=== PATIENT | male | born 1945 | race Caucasian/White ===

== ENCOUNTER 2019-03-23 23:22 | Emergency (ER) | payer MEDICARE, OTHER, SELFPAY ==
--- NOTE | 2019-03-23 23:25 | ED_ITS ---
Entered by Debi Bennett, acting as scribe for Cally Estrada Nakul HPI - SOB/Dyspnea General: Chief Complaint: Shortness of Breath/Dyspnea Stated Complaint: RESPIRATORY/ CONFUSION Time Seen by Provider: 03/23/19 23:25 Source: EMS Mode of arrival: EMS Limitations: no limitations History of Present Illness: HPI Narrative: 73 yo m came into the er by [facility] ems for sob. Ems states that pt has a productive cough x3 days, o2 was in the 80's apon arrival and was a little altered. He denies any other complaints or concerns. He denies headache, chest pain, back pain, abdominal pain or extremity pain. MD elicited complaint: shortness of breath and cough Pertinent past history: diabetes (461) Timing: constant Relieving factors: oxygen and rest Associated symptoms: Deny abdominal pain, chest congestion, chest pain, diaphoresis, dizziness, extremity pain, fever(s), hemoptysis, nausea, orthopnea, palpitations, polydipsia, syncope or vomiting Treatment prior to arrival: oxygen Related Data: Home oxygen amount: none Review of Systems General: Reports: other (negative unless marked) Const: Denies: fever, chills, body aches, fatigue, malaise or diaphoresis Eyes: Denies: change in vision or blurry vision ENMT: Denies: throat pain, painful swallowing, hoarseness, ear pain, ear discharge, Change in hearing or nasal discharge Card: Reports: shortness of breath on exertion; Denies: chest pain, palpitations, irregular heart rhythm, syncope, pre-syncope or shortness of breath when lying down Resp: Reports: shortness of breath, productive cough and wheezing; Denies: non-productive cough, coughing up blood or chest congestion GI: Denies: abdominal pain, nausea, vomiting, vomiting blood, coffee grounds in vomit, diarrhea, constipation, cramping, blood in stool or black tarry stool : Denies: flank pain, difficulty urinating, painful urination, urinary frequency, urinary urgency, decreased urine ouput, urinary incontinence or blood in urine Musc: Denies: neck pain, back pain, extremity pain, extremity swelling, joint pain, joint swelling, joint warmth or joint stiffness Skin/Breast: Denies: rash, skin tenderness or yellow skin Neuro: Denies: headache, numbness in extremities, weakness in extremities, changes in sensation, lack of coordination, difficulty walking, dizziness, vertigo or confusion Endo: Denies: excessive thirst, tired all the time, cold intolerance, excessive sweating, flushing or hot flashes Robert/Lymph: Denies: easy bruising, easy bleeding, petechiae or enlarged lymph nodes All/Imm: Denies: hives, throat swelling, tongue swelling, facial swelling or acute wheezing PFSH ED PFSH: Statuses (acute, chronic, etc) shown below reflect problem list status as previously entered and may not be historically accurate Medical History Back pain with history of spinal surgery (Acute) Chronic back pain (Acute) Coronary artery disease involving coronary bypass graft of [place] heart (Acute) 2019 Diabetes (Acute) Former smoker (Acute) Hypertension (Acute) Sepsis (Acute) 2019 Urinary retention (Acute) Surgical History H/O angioplasty (Acute) 1992 H/O spinal fusion (Acute) 1999, 2012 History of prostate surgery (Acute) 2004 Hx of appendectomy (Acute) 1986 Knee joint replacement status (Acute) Bilateral Stented coronary artery (Acute) 1996 Family History Denies family history of CAD (coronary artery disease) Chronic kidney disease (CKD) Cancer Social History Smoking and tobacco status: former smoker Physical Exam Const: COMMON NORMALS: no apparent distress, oriented x3, no limitations, healthy appearing and well nourished EXAM LIMITATIONS: no altered mental status GENERAL APPEARANCE: cooperative, well kempt and well developed ORIENTATION/CONSCIOUSNESS: Yes awake HENMT: COMMON NORMALS: normocephalic, head/scalp atraumatic, hearing grossly normal bilaterally, external ears normal, EAC's normal, external nose normal and moist oral mucous membranes HEAD & SCALP: normal to inspection, normocephalic and atraumatic FACE & SINUS: normal facial exam and face symmetric NOSE: external nose normal and nares normal EXTERNAL EAR: Yes external ears normal EXTERNAL AUDITORY CANAL: EAC's normal MOUTH: oral and palatal mucosa normal and tongue normal Eye: COMMON NORMALS: PERRL, EOMs intact bilaterally, conjunctivae normal and no scleral icterus GENERAL EYE: normal appearance of both eyes and normal light reflex CONJUNCTIVA: Yes conjunctivae normal SCLERA: sclerae normal CORNEA: Yes corneas normal PUPIL: Yes PERRL DIRECT OPHTHALMOSCOPY: Yes normal light reflex Neck/C-Spine: COMMON NORMALS: full ROM, no lymphadenopathy, supple, no meningeal signs and no JVD GENERAL: Yes normal visual inspection and Yes trachea midline CERVICAL SPINE: Yes cervical ROM normal Chest: COMMONS NORMALS: inspection of chest normal and palpation of chest normal Resp: COMMON NORMALS: normal respiratory effort, no retractions, no use of accessory muscles and clear to auscultation bilaterally EFFORT & INSPECTION: Yes able to speak in complete sentences AUSCULTATION: clear to auscultation bilaterally Cardio: COMMON NORMALS: no JVD, regular rate, regular rhythm, S1 normal heart sound, S2 normal heart sound, no gallops, no clicks, no murmurs and no rub JUGULAR VENOUS DISTENTION: no JVD RATE: regular rate RHYTHM: regular rhythm HEART SOUNDS: S1 normal and S2 normal GI: COMMON NORMALS: soft to palpation, non-tender, no hepatosplenomegaly and no masses INSPECTION: Yes normal to inspection PALPATION: Yes soft and Yes no hepatosplenomegaly : COMMON NORMALS: Yes no CVA tenderness BLADDER/KIDNEY EXAM: Yes no CVA tenderness Back/Pelvis: COMMON NORMALS: no CVA tenderness, thoracic and lumbar spine normal to inspection, no thoracic nor lumbar tenderness and thoraco-lumbar ROM normal Extremity: COMMON NORMALS: normal to inspection, full ROM, normal capillary refill, no joint enlargement, no clubbing, cyanosis or edema and no calf tenderness Neuro: COMMON NORMALS: oriented x3, CN's II-XII intact bilaterally, moves all extremities, no focal motor deficits and no sensory deficits noted MENINGEAL SIGNS: Yes no meningeal signs Psych: COMMON NORMALS: mental status grossly normal, thought process normal, cooperative, affect normal, speech normal and activity/motor behavior normal APPEARANCE: Yes well kempt SPEECH: Yes normal speech THOUGHT PROCESS: normal thought process Skin: COMMON NORMALS: no rashes or lesions noted, skin turgor normal, no jaundice, no petechiae and no mottling GENERAL SKIN EXAM: no rashes or lesions noted and turgor normal Course ED course: 354 local air ambulance services with varying capabilities of flight in bad weather have been called and all of turned us down. [facility] has been made aware that as soon as the patient's index is available they will be transferring the patient is a life threat transfer to [facility]. Vital Signs: Vital signs: Vital Signs Temperature 99.2 F 03/23/19 23:30 Pulse Rate 59 L 03/24/19 02:35 Respiratory Rate 18 03/24/19 02:35 Blood Pressure 93/55 03/24/19 02:35 Pulse Oximetry 95 03/24/19 02:35 MDM - SOB/Dyspnea MDM Narrative: Medical decision making narrative: Patient CT scan and history was shared with Dr. Mena and Dr. Patrick. They both feel the patient should be transferred secondary to the inability to do a nephrectomy. The case reviewed with Dr. Dillon at [facility] in [place] and he will accept the patient to their ICU. He recommends giving Andexxa for the as the patient is on Eliquis and having a hematoma with mass-effect.. He does not think the patient needs transfusion at this time. Patient is currently stable and feeling better. He is on Levophed at 2 mics/min but only run slightly below a map of 65 without this. The patient does have pneumonia which could be contributing to his shortness of breath but overall he appears greatly improved. At this time his vital signs are stable and normal. Further care will be dictated at [facility] upon his arrival. Lab Data: Attestation: I reviewed the patient's lab results. Labs: Lab Results 03/23/19 03/23/19 03/23/19 Range/Units 23:35 23:42 23:42 WBC 13.2 H (4.0-10.0) 10^3/ uL RBC 3.58 L (4.1-5.3) 10^6/u L Hgb 10.2 L (11.7-16.6) g/dL Hct 30.8 L (42.0-52.0) % MCV 86.0 (80-94) fL MCH 28.5 (28.0-34.0) pg MCHC 33.1 (30.0-36.0) g/dL RDW 12.6 (12.1-15.1) % Plt Count 169 (130-400) 10^3/c mm MPV 12.4 H (7.4-10.4) fL Neut % (Auto) 79.5 % Lymph % (Auto) 9.0 % [place] % (Auto) 10.8 % Eos % (Auto) 0.1 % Baso % (Auto) 0.1 % Neut # (Auto) 10.5 H (1.8-7.7) 10^3/u L Lymph # (Auto) 1.2 (0.8-4.8) 10^3/u L [place] # (Auto) 1.4 H (0.2-0.9) 10^3/u L Eos # (Auto) 0.0 (0.0-0.8) 10^3/u L Baso # (Auto) 0.0 (0.0-0.1) 10^3/u L Nucleated RBC % (a uto) 0 % Nucleated RBCs # 0.0 /100WBC PT (10.5-13.3) SECO NDS INR (0.8-1.2) Specimen Type Arterial Sample Site Radial, left ABG pH 7.37 (7.35-7.45) ABG pCO2 38.6 (35-45) mmHg ABG pO2 123.0 H (80.0-100.0) mmH g ABG HCO3 22.3 (22-26) mmol/L ABG Base Excess -2.7 L (-2.0-2.0) mmol/ L Shyam Test Pos Hematocrit 32.4 L (42-52) % O2 Delivery Device Nrb O2 Liters/Min 15.0 % Body Work Auto Trimmer ID [email or web address] Sodium 128 L (136-145) mmol/L Potassium 4.3 (3.5-5.1) mmol/L Chloride 93 L (98-107) mmol/L Carbon Dioxide 21 L (22-29) mmol/L Anion Gap 18.3 (5-19) BUN 81 H (8-23) mg/dL Creatinine 3.4 H (0.7-1.2) mg/dL Glucose 468 H (74-106) mg/dL Lactic Acid (0.5-2.2) mmol/L Calcium 9.3 (8.5-10.5) mg/dL Magnesium 2.5 H (1.7-2.3) mg/dL Total Bilirubin 0.5 (0.15-1.2) mg/dL AST 13 (0-40) U/L ALT 15 (0-41) U/L Alkaline Phosphata se 55 (40-130) IU/L Troponin T Baselin e (0-15) ng/mL Troponin T 120 Min [place] (0-15) ng/mL Delta Troponin T (0-10) ABS# NT-Pro-B Natriuret Pep 1789 H (0-125) pg/mL Total Protein 6.4 L (6.6-8.7) g/dL Albumin 3.2 L (3.5-5.2) g/dL Globulin 3.2 (1.3-4.6) g/dL Urine Color (Yellow) Urine Appearance (CLEAR) Urine pH (5-7) Ur Specific Gravit y (1.005-1.030) Urine Protein (Negative) Urine Glucose (UA) (Normal) Urine Ketones (Negative) Urine Occult Blood (Negative) Urine Nitrate (Negative) Urine Bilirubin (NEGATIVE) Urine Urobilinogen (Negative) mg/dL Ur Leukocyte Lucero ase (Negative) Urine RBC (0-2) /hpf Urine WBC (0-5) /hpf Ur Squamous Epith Cells (0-5) Ur Transition Epit h Cell /hpf Urine Bacteria (NONE) Influenza Type A A g (Negative) POC Influenza B Ag (Negative) 03/23/19 03/23/19 03/23/19 Range/Units 23:42 23:42 23:42 WBC (4.0-10.0) 10^3/ uL RBC (4.1-5.3) 10^6/u L Hgb (11.7-16.6) g/dL Hct (42.0-52.0) % MCV (80-94) fL MCH (28.0-34.0) pg MCHC (30.0-36.0) g/dL RDW (12.1-15.1) % Plt Count (130-400) 10^3/c mm MPV (7.4-10.4) fL Neut % (Auto) % Lymph % (Auto) % [place] % (Auto) % Eos % (Auto) % Baso % (Auto) % Neut # (Auto) (1.8-7.7) 10^3/u L Lymph # (Auto) (0.8-4.8) 10^3/u L [place] # (Auto) (0.2-0.9) 10^3/u L Eos # (Auto) (0.0-0.8) 10^3/u L Baso # (Auto) (0.0-0.1) 10^3/u L Nucleated RBC % (a uto) % Nucleated RBCs # /100WBC PT 22.50 H (10.5-13.3) SECO NDS INR 1.90 H (0.8-1.2) Specimen Type Sample Site ABG pH (7.35-7.45) ABG pCO2 (35-45) mmHg ABG pO2 (80.0-100.0) mmH g ABG HCO3 (22-26) mmol/L ABG Base Excess (-2.0-2.0) mmol/ L Shyam Test Hematocrit (42-52) % O2 Delivery Device O2 Liters/Min % Body Work Auto Trimmer ID Sodium (136-145) mmol/L Potassium (3.5-5.1) mmol/L Chloride (98-107) mmol/L Carbon Dioxide (22-29) mmol/L Anion Gap (5-19) BUN (8-23) mg/dL Creatinine (0.7-1.2) mg/dL Glucose (74-106) mg/dL Lactic Acid 1.2 (0.5-2.2) mmol/L Calcium (8.5-10.5) mg/dL Magnesium (1.7-2.3) mg/dL Total Bilirubin (0.15-1.2) mg/dL AST (0-40) U/L ALT (0-41) U/L Alkaline Phosphata se (40-130) IU/L Troponin T Baselin e 28 H (0-15) ng/mL Troponin T 120 Min [place] (0-15) ng/mL Delta Troponin T (0-10) ABS# NT-Pro-B Natriuret Pep (0-125) pg/mL Total Protein (6.6-8.7) g/dL Albumin (3.5-5.2) g/dL Globulin (1.3-4.6) g/dL Urine Color (Yellow) Urine Appearance (CLEAR) Urine pH (5-7) Ur Specific Gravit y (1.005-1.030) Urine Protein (Negative) Urine Glucose (UA) (Normal) Urine Ketones (Negative) Urine Occult Blood (Negative) Urine Nitrate (Negative) Urine Bilirubin (NEGATIVE) Urine Urobilinogen (Negative) mg/dL Ur Leukocyte Lucero ase (Negative) Urine RBC (0-2) /hpf Urine WBC (0-5) /hpf Ur Squamous Epith Cells (0-5) Ur Transition Epit h Cell /hpf Urine Bacteria (NONE) Influenza Type A A g (Negative) POC Influenza B Ag (Negative) 03/24/19 03/24/19 03/24/19 Range/Units 00:01 00:39 01:22 WBC (4.0-10.0) 10^3/ uL RBC (4.1-5.3) 10^6/u L Hgb (11.7-16.6) g/dL Hct (42.0-52.0) % MCV (80-94) fL MCH (28.0-34.0) pg MCHC (30.0-36.0) g/dL RDW (12.1-15.1) % Plt Count (130-400) 10^3/c mm MPV (7.4-10.4) fL Neut % (Auto) % Lymph % (Auto) % [place] % (Auto) % Eos % (Auto) % Baso % (Auto) % Neut # (Auto) (1.8-7.7) 10^3/u L Lymph # (Auto) (0.8-4.8) 10^3/u L [place] # (Auto) (0.2-0.9) 10^3/u L Eos # (Auto) (0.0-0.8) 10^3/u L Baso # (Auto) (0.0-0.1) 10^3/u L Nucleated RBC % (a uto) % Nucleated RBCs # /100WBC PT (10.5-13.3) SECO NDS INR (0.8-1.2) Specimen Type Sample Site ABG pH (7.35-7.45) ABG pCO2 (35-45) mmHg ABG pO2 (80.0-100.0) mmH g ABG HCO3 (22-26) mmol/L ABG Base Excess (-2.0-2.0) mmol/ L Shyam Test Hematocrit (42-52) % O2 Delivery Device O2 Liters/Min % Body Work Auto Trimmer ID Sodium (136-145) mmol/L Potassium (3.5-5.1) mmol/L Chloride (98-107) mmol/L Carbon Dioxide (22-29) mmol/L Anion Gap (5-19) BUN (8-23) mg/dL Creatinine (0.7-1.2) mg/dL Glucose (74-106) mg/dL Lactic Acid (0.5-2.2) mmol/L Calcium (8.5-10.5) mg/dL Magnesium (1.7-2.3) mg/dL Total Bilirubin (0.15-1.2) mg/dL AST (0-40) U/L ALT (0-41) U/L Alkaline Phosphata se (40-130) IU/L Troponin T Baselin e (0-15) ng/mL Troponin T 120 Min [place] 26.59 H (0-15) ng/mL Delta Troponin T -1.41 L (0-10) ABS# NT-Pro-B Natriuret Pep (0-125) pg/mL Total Protein (6.6-8.7) g/dL Albumin (3.5-5.2) g/dL Globulin (1.3-4.6) g/dL Urine Color Yellow (Yellow) Urine Appearance Cloudy (CLEAR) Urine pH 5 (5-7) Ur Specific Gravit y 1.020 (1.005-1.030) Urine Protein Neg (Negative) Urine Glucose (UA) 4+ H (Normal) Urine Ketones Negative (Negative) Urine Occult Blood 2+ H (Negative) Urine Nitrate Negative (Negative) Urine Bilirubin Neg (NEGATIVE) Urine Urobilinogen Norm (Negative) mg/dL Ur Leukocyte Lucero ase 2+ H (Negative) Urine RBC 10-15 H (0-2) /hpf Urine WBC Too numerous to c nt H (0-5) /hpf Ur Squamous Epith Cells 5-10 H (0-5) Ur Transition Epit h Cell 0-4 /hpf Urine Bacteria 4+ H (NONE) Influenza Type A A g Negative (Negative) POC Influenza B Ag Negative (Negative) Imaging Data^: CT Abd/Pel: Attestation: I personally reviewed and interpreted this imaging study as follows: Radiologist's impression: [address] [address] [address] Scan Report Signed with Kirstie Patient: Dominick Cifuentes Unit #: [id number] : 1945 Age/Sex: 73 / M ADM Date: 03/23/19 Loc: ER Room/Bed: Attending Dr: Ordering Provider/Ordering MD: Cally Estrada DO Date of Service: 03/24/19 Procedure(s): CT kidney stone 17222 Accession Number(s): [id number] Report Number: [id number]/CT kidney stone [address] Consider renal mass protocol CT in the future to evaluate for the possibility of underlying mass. The findings were discussed with Dr. Estrada on 03/24/2019 2:18 AM PHARMACY MANAGER. Radiation Dose CTDIVOL = (mGy): DLP = 1816.75 (mGy-cm) Addendum Dictated By: Ramy Guillen MD Addendum Signed By: Ramy Guillen MD Signed Date/Time: 03/24/1904 17 Addendum Cosigned By: PROCEDURE INFORMATION: Exam: CT Abdomen And Pelvis Without Contrast Exam date and time: 03/24/2019 1:11 AM Age: 73 years old Clinical indication: Pain; Other: Back; Additional info: Flank/abdominal pain TECHNIQUE: Imaging protocol: Computed tomography of the abdomen and pelvis without contrast. Total DLP: 1816.75 mGy-cm Radiation optimization: All CT scans at this facility use at least one of these dose optimization techniques: automated exposure control; mA and/or kV adjustment per patient size (includes targeted exams where dose is matched to clinical indication); or iterative reconstruction. COMPARISON: CT Chest/Abdomen/Pelvis wo IV 01/07/2013 8:41 AM FINDINGS: Mild atelectasis at the right lung base. Moderate patchy atelectasis and/or pneumonia in the left lower lobe at the lung base, new. The liver, gallbladder, pancreas, and adrenal glands are unremarkable within the limits of a noncontrast study. Several small calcified granulomata in the spleen. There are a few cysts in the right kidney, largest 3.1 cm in the mid kidney. There are a few stones in the right kidney, largest 0.5 cm in the mid kidney. There are a few simple cysts in the right kidney, largest 6.5 cm in the lower pole. There is a 1.1 cm probable hyperdense cyst in the left kidney lower pole on series 2, image 24. Large subcapsular left renal hematoma measuring 9.8 cm x 6.2 cm on series 2, image 91. This is demonstrating marked mass effect on the left kidney. Large amount of infiltrative hemorrhage in the left perinephric space and the left side of the retroperitoneum inferior to the left kidney. No obstructing renal stones identified. No hydronephrosis identified. The appendix is not identified as a separate structure. No evidence of bowel obstruction. No evidence of diverticulitis. No free intraperitoneal air identified. Payne catheter is noted in the bladder. The bladder is collapsed and is not well evaluated on this study. Extensive atherosclerotic aortoiliac calcification. No abdominal aortic aneurysm. Degenerative changes throughout the visualized lower thoracic spine and the lumbar spine. Status post posterior surgical fusion of T9 through L3. CT/CT kidney stone 77122 IMPRESSION: 1. Moderate patchy atelectasis and/or pneumonia in the left lower lobe at the lung base, new. 2. Large subcapsular left renal hematoma. This is demonstrating marked mass effect on the left kidney. Large amount of infiltrative hemorrhage in the left perinephric space and the left side of the retroperitoneum inferior to the left kidney. These findings are new. Radiation Dose CTDIVOL = (mGy): DLP = 1816.75 (mGy-cm) Dictated By: Ramy Guillen MD Signed By: Ramy Guillen MD Signed Date/Time: 03/24/19215 DD/ 3 EKG Data^: EKG 1: Attestation: I personally reviewed and interpreted this EKG as follows: EKG Interpretation Date: 03/23/19 EKG interpretation time: 23:52 Interpretation: Normal sinus rhythm at 58 beats a minute, first-degree AV block, normal QRS duration, normal QTC. Nonspecific ST and T wave changes. Unchanged from previous. EKG 2: EKG Interpretation Date: 03/24/19 EKG interpretation time: 01:18 Interpretation: Normal sinus rhythm at 55 beats a minute, first-degree AV block, normal QRS, normal QTC. Nonspecific ST-T wave changes, otherwise unremarkable. Discharge Plan Discharge Patient Disposition: Xfer Short-Term Hosp Clinical Impression: UTI (urinary tract infection), Septic shock, Closed hematoma of right kidney, Pneumonia, Chronic anticoagulation Condition: Stable Referrals: Branden Moody [Primary Care Provider] - Coding Level of Care Code ED Pickle Water Pump Operator for Chg Fwd The documentation recorded by the Donald duenas Stephanie Lyn, accurately reflects the service I personally performed and the decisions made by Sean dent Eli N Mar 23, 2019 23:22
--- NOTE | 2019-03-23 23:28 | XR_ITS ---
WS: [id number] PORTABLE CHEST HISTORY: cough COMPARISON: 07/18/2015 Prior CABG. Vertical fusion rods are noted and there is a fracture in the LEFT vertical dipika. This fra cture is probably between T12 and L1. Mild dependent changes at the lung bases bilaterally. More focal consolidation at the LEFT lung base consistent with pneumonia. Small LEFT pleural effusion. Cardiac size: Moderately enlarged cardiac silhouette. Mediastinum/Aorta: Mild atherosclerosis aorta. Prior fusion thoracolumbar region. XR/XR chest 1V portable [id number] IMPRESSION: 1. LEFT lower lobe pneumonia with small adjacent pleural effusion. 2. Prior CABG. 3. Vertical LEFT thoracolumbar fusion dipika is fractured.
[2019-03-23 23:30] VITALS: BP 87/53; PULSE 60; RESP 24; TEMP 37.3; O2SAT 96; BMI 31.0
--- NOTE | 2019-03-23 23:31 | ECG_ITS ---
Measurements Intervals [place] Rate: 58 P: 18 CT: 251 QRS: -8 QRSD: 93 T: 8 QT: 430 QTc: 424 SINUS BRADYCARDIA WITH FIRST DEGREE AV BLOCK MODERATE VOLTAGE CRITERIA FOR LVH, CONSIDER NORMAL VARIANT [MEETS CRITERIA IN ON ONE OF: R(aVL), S(V1), R(V5), R(V5/V6)+S(V1)] Compared to ECG 07/18/2015 23:29:40 No significant changes Electronically Signed On 03-24-2019 16:17:59 CURATOR OF COLLECTIONS by Ted Blood M.D. [id number]
[2019-03-23] MEDS: ipratropium-albuterol 3 mL Neb 9 ML INHALATION (23:35)
[2019-03-23 23:36] VITALS: PULSE 58; RESP 16; O2SAT 98
[2019-03-23 23:41] VITALS: PULSE 58; RESP 18; O2SAT 96
[2019-03-23 23:44] LABS: ABG PCO2 38.6 mmHg (35-45); ABG PH Result 7.37 (7.35-7.45); Arterial Blood Gas Hematocrit 32.4 % (42-52); Base Excess ABG -2.7 mmol/L (-2.0-2.0); Blood Gas Allen Test Pos; Blood Gas Sample Site Radial, left; Blood Gas Sample Type Arterial; HCO3 ABG 22.3 mmol/L (22-26); Oxygen Device NRB
[2019-03-23 23:53] LABS: Basophils % 0.1 %; Eosinophils % 0.1 %; Hematocrit 30.8 % (42.0-52.0); Hemoglobin 10.2 g/dL (11.7-16.6); Lymphocytes # 1.2 10^3/uL (0.8-4.8); Mean Corpuscular HGB Conc 33.1 g/dL (30.0-36.0); Mean Corpuscular Hemoglobin 28.5 pg (28.0-34.0); Mean Platelet Volume 12.4 fL (7.4-10.4); Monocytes # 1.4 10^3/uL (0.2-0.9); Monocytes % 10.8 %; Neutrophils # 10.5 10^3/uL (1.8-7.7); Neutrophils % 79.5 %; Nucleated Red Blood Cells % 0 %; Platelet Count 169 10^3/cmm (130-400); Red Blood Count 3.58 10^6/uL (4.1-5.3); Red Cell Distribution Width 12.6 % (12.1-15.1); White Blood Count 13.2 10^3/uL (4.0-10.0)
[2019-03-24] MEDS: levofloxacin-dextrose 5 % 750 MG/150 ML PREMIX 150 MG IV (00:08)
[2019-03-24 00:14] LABS: Lactic Sepsis W/Reflex 1.2 mmol/L (0.5-2.2)
[2019-03-24 00:17] LABS: Troponin(5th) Baseline 28 ng/mL (0-15)
[2019-03-24 00:26] VITALS: BP 107/59; PULSE 60; RESP 20; O2SAT 91
[2019-03-24 00:26] LABS: Bilirubin Urine Neg (NEGATIVE); Blood Urine 2+ (Negative); Glucose Urine UA 4+ (Normal); Ketones Urine Negative (Negative); Leukocyte Esterase Urine 2+ (Negative); Nitrate Urine Negative (Negative); Protein Urine Neg (Negative); Urine Appearance Cloudy (CLEAR); Urine Color Yellow (Yellow); Urobilinogen Urine Norm (Negative); pH Urine 5 (5-7)
[2019-03-24 00:26] LABS: Alanine Aminotransferase 15 U/L (0-41); Albumin Level 3.2 g/dL (3.5-5.2); Alkaline Phosphatase 55 IU/L (40-130); Anion Gap 18.3 (5-19); Aspartate Amino Transferase 13 U/L (0-40); Blood Urea Nitrogen 81 mg/dL (8-23); Calcium 9.3 mg/dL (8.5-10.5); Carbon Dioxide 21 mmol/L (22-29); Chloride 93 mmol/L (98-107); Globulin 3.2 g/dL (1.3-4.6); Glucose 468 mg/dL (74-106); Magnesium 2.5 mg/dL (1.7-2.3); NT Pro B Type Natriuretic Pept 1789 pg/mL (0-125); Potassium 4.3 mmol/L (3.5-5.1); Sodium 128 mmol/L (136-145); Total Bilirubin 0.5 mg/dL (0.15-1.2); Total Protein 6.4 g/dL (6.6-8.7)
[2019-03-24 00:39] LABS: Add Urine Culture? Yes; Bacteria Urine 4+; Transitional Epi Cells Urine 0-4 /hpf; WBC Urine TOO NUMEROUS TO CNT /hpf (0-5)
--- NOTE | 2019-03-24 01:11 | CTR_ITS ---
PROCEDURE INFORMATION: Exam: CT Abdomen And Pelvis Without Contrast Exam date and time: 03/24/2019 1:11 AM Age: 73 years old Clinical indication: Pain; Other: Back; Additional info: Flank/abdominal pain TECHNIQUE: Imaging protocol: Computed tomography of the abdomen and pelvis without contrast. Total DLP: 1816.75 mGy-cm Radiation optimization: All CT scans at this facility use at least one of these dose optimization techniques: automated exposure control; mA and/or kV adjustment per patient size (includes targeted exams where dose is matched to clinical indication); or iterative reconstruction. COMPARISON: CT Chest/Abdomen/Pelvis wo IV 01/07/2013 8:41 AM FINDINGS: Mild atelectasis at the right lung base. Moderate patchy atelectasis and/or pneumonia in the left lower lobe at the lung base, new. The liver, gallbladder, pancreas, and adrenal glands are unremarkable within the limits of a noncontrast study. Several small calcified granulomata in the spleen. There are a few cysts in the right kidney, largest 3.1 cm in the mid kidney. There are a few stones in the right kidney, largest 0.5 cm in the mid kidney. There are a few simple cysts in the right kidney, largest 6.5 cm in the lower pole. There is a 1.1 cm probable hyperdense cyst in the left kidney lower pole on series 2, image 24. Large subcapsular left renal hematoma measuring 9.8 cm x 6.2 cm on series 2, image 91. This is demonstrating marked mass effect on the left kidney. Large amount of infiltrative hemorrhage in the left perinephric space and the left side of the retroperitoneum inferior to the left kidney. No obstructing renal stones identified. No hydronephrosis identified. The appendix is not identified as a separate structure. No evidence of bowel obstruction. No evidence of diverticulitis. No free intraperitoneal air identified. Payne catheter is noted in the bladder. The bladder is collapsed and is not well evaluated on this study. Extensive atherosclerotic aortoiliac calcification. No abdominal aortic aneurysm. Degenerative changes throughout the visualized lower thoracic spine and the lumbar spine. Status post posterior surgical fusion of T9 through L3. CT/CT kidney stone [id number] IMPRESSION: 1. Moderate patchy atelectasis and/or pneumonia in the left lower lobe at the lung base, new. 2. Large subcapsular left renal hematoma. This is demonstrating marked mass effect on the left kidney. Large amount of infiltrative hemorrhage in the left perinephric space and the left side of the retroperitoneum inferior to the left kidney. These findings are new. Radiation Dose CTDIVOL = (mGy): DLP = 1816.75 (mGy-cm)
[2019-03-24 01:15] LABS: Influenza A by IFA Negative (Negative); Influenza B by IFA Negative (Negative)
--- NOTE | 2019-03-24 01:31 | ECG_ITS ---
Measurements Intervals [place] Rate: 57 P: 6 MA: 248 QRS: -3 QRSD: 96 T: 8 QT: 434 QTc: 423 SINUS BRADYCARDIA WITH FIRST DEGREE AV BLOCK MINIMAL VOLTAGE CRITERIA FOR LVH, CONSIDER NORMAL VARIANT [MEETS CRITERIA IN ONE OF: R(aVL), S(V1), R(V5), R(V5/V6)+S(V1)] INFERIOR MYOCARDIAL INFARCTION , PROBABLY OLD [40+ ms Q WAVE AND/OR ST/T AB ABNORMALITY IN II/aVF] Compared to ECG 07/18/2015 23:29:40 Myocardial infarct finding now present Electronically Signed On 03-24-2019 16:21:09 PRECAST MOLDER by Ted Blood M.D. [id number]
[2019-03-24 02:01] VITALS: BP 87/47; PULSE 57; O2SAT 91
[2019-03-24 02:04] LABS: Troponin 5 2HR 26.59 ng/mL (0-15)
--- NOTE | 2019-03-24 02:11 | PM.HP ---
Providers/Chief Complaint Primary Care Provider: Branden Moody Chief Complaint: RESPIRATORY/ CONFUSION History of Present Illness Dominick Cifuentes is a 73 year old male Medications/Allergies Home Medications Medication Instructions Recorded Confirmed Last Taken Type alprazolam 0.5 mg PO BID 03/23/19 03/23/19 03/23/19 History apixaban [Eliquis] 5 mg PO BID 03/23/19 03/23/19 03/23/19 History atenolol 100 mg PO DAILY 03/23/19 03/23/19 03/23/19 History carisoprodol [Soma] 350 mg PO TID 03/23/19 03/23/19 03/23/19 History diltiazem HCl 240 mg PO DAILY 03/23/19 03/23/19 03/23/19 History fenofibrate nanocrystallized 145 mg PO DAILY 03/23/19 03/23/19 03/23/19 History [Tricor] insulin glargine [Lantus Solostar 60 unit SUBCUT QPM 03/23/19 03/23/19 03/23/19 History U-100 Insulin] insulin regular human [Novolin R 1 unit SUBCUT DIRECTED 03/23/19 03/23/19 03/23/19 History Regular U-100 Insuln] lisinopril-hydrochlorothiazide 1 tab PO DAILY 03/23/19 03/23/19 03/23/19 History nitroglycerin 0.4 mg SUBLINGUAL Q5M PRN 03/23/19 03/23/19 Unknown History nitroglycerin 6.5 mg PO BID 03/23/19 03/23/19 03/23/19 History oxybutynin chloride 10 mg PO DAILY 03/23/19 03/23/19 03/23/19 History pregabalin [Lyrica] 100 mg PO BID 03/23/19 03/23/19 03/23/19 History sertraline 100 mg PO DAILY 03/23/19 03/23/19 03/23/19 History Allergies Allergy/AdvReac Type Severity Reaction Status Date / Time amitriptyline Allergy ALGY-Hives Verified 03/23/19 23:38 cefaclor [From Ceclor] Allergy ALGY-Hives Verified 03/23/19 23:38 PFSH Acute PFSH: Statuses (acute, chronic, etc) shown below reflect problem list status as previously entered and may not be historically accurate Medical History (Updated 03/24/19 @ 02:14 by Jeimy Mena MD) Back pain with history of spinal surgery (Acute) Chronic back pain (Acute) Coronary artery disease involving coronary bypass graft of [place] heart (Acute) 2019 Diabetes (Acute) Former smoker (Acute) Hypertension (Acute) Sepsis (Acute) 2019 Urinary retention (Acute) Surgical History (Updated 03/24/19 @ 02:14 by Jeimy Mena MD) H/O angioplasty (Acute) 1992 H/O spinal fusion (Acute) 1999, 2012 History of prostate surgery (Acute) 2004 Hx of appendectomy (Acute) 1986 Knee joint replacement status (Acute) Bilateral Stented coronary artery (Acute) 1996 Family History (Updated 03/24/19 @ 02:14 by Jeimy Mena MD) Denies family history of CAD (coronary artery disease) Chronic kidney disease (CKD) Cancer Social History Smoking and tobacco status: former smoker Vitals/I&O/Wt Last Vital Signs Temp 99.2 F 03/23/19 23:30 Pulse 57 L 03/24/19 02:01 Resp 20 H 03/24/19 00:26 BP 87/47 03/24/19 02:01 Pulse Ox 91 03/24/19 02:01 03/23/19 03/23/19 03/24/19 14:59 22:59 06:59 Intake Total 3150 / 3150 Balance 3150 / 3150 Weight last 48 hrs Weight 95.254 kg Physical Exam Urinary Catheter Management^: Payne: Cath Placed During This Visit: no Data : 03/23/19 23:42 03/23/19 23:42 Micro: Microbiology 03/23/19 23:42 Blood Culture - Preliminary Blood SPECIMEN COLLECTED 03/23/19 23:46 Blood Culture - Preliminary Blood SPECIMEN COLLECTED Coding Level of Care Code Acute Manager Managed [employer]up Services for Karli Small
[2019-03-24 02:22] LABS: Troponin 5 2HR Delta -1.41 ABS# (0-10)
[2019-03-24 02:35] VITALS: BP 93/55; PULSE 59; RESP 18; O2SAT 95
[2019-03-24] MEDS: sodium chloride 0.9% 1,000 ML 150 ML IV (02:40)
--- NOTE | 2019-03-24 04:06 | PC.NURSE ---
Called report to Chel Piedra RN at [facility]
[2019-03-24 04:07] VITALS: BP 109/60; PULSE 59; RESP 18; O2SAT 92
[2019-03-24 05:03] VITALS: BP 114/65; PULSE 56; RESP 20; O2SAT 92
--- NOTE | 2019-03-24 05:04 | PC.NURSE ---
Report given To Eh Psychology Department Chair
== END 2019-03-24 05:20 | disposition short-term general hospital (02) ==
PROVIDERS: Emergency Provider Emergency Medicine; Family Provider Family Medicine; PCP Family Medicine
DX: A41.9 Sepsis, unspecified organism (principal); N39.0 Urinary tract infection, site not specified; R65.21 Severe sepsis with septic shock; S37.011A Minor contusion of right kidney, initial encounter; J18.9 Pneumonia, unspecified organism; Z79.01 Long term (current) use of anticoagulants; I25.10 Atherosclerotic heart disease of native coronary artery without angina pectoris; Z95.1 Presence of aortocoronary bypass graft; E11.9 Type 2 diabetes mellitus without complications; I10 Essential (primary) hypertension; Z87.891 Personal history of nicotine dependence; X58.XXXA Exposure to other specified factors, initial encounter
CPT/HCPCS: 36415; 36600; 51702; 71045; 74176; 80053; 81001; 82803; 83605; 83735; 83880; 84484; 85025; 85610; 87040; 87077; 87086; 87186; 87804; 93005; 94640; 96365; 96366; 96372; 96374; 99283; 99285; C9041; J1815; J1956; J2930; J7030

== ENCOUNTER → 2019-08-05 09:30 | Outpatient (BNVA) | payer MEDICARE, OTHER, SELFPAY | PROVIDERS: Family Provider Family Medicine; PCP Nurse Practitioner Family; Visit Provider Family Medicine | DX: E11.9 Type 2 diabetes mellitus without complications (principal); F41.9 Anxiety disorder, unspecified; F32.9 Major depressive disorder, single episode, unspecified; I25.810 Atherosclerosis of coronary artery bypass graft(s) without angina pectoris; E78.5 Hyperlipidemia, unspecified; M54.9 Dorsalgia, unspecified; I10 Essential (primary) hypertension; K21.9 Gastro-esophageal reflux disease without esophagitis | CPT/HCPCS: 80053; 80061; 83036; 85025 ==

== ENCOUNTER → 2019-09-25 12:36 | Outpatient (BNVA) | payer MEDICARE, OTHER, SELFPAY | PROVIDERS: Family Provider Family Medicine; PCP Nurse Practitioner Family; Visit Provider Family Medicine | DX: R07.89 Other chest pain (principal); M54.9 Dorsalgia, unspecified; G89.29 Other chronic pain | CPT/HCPCS: 71046 ==

== ENCOUNTER 2019-11-09 06:00 | Outpatient (RCR) | payer MEDICARE, OTHER, SELFPAY | END 2019-11-25 23:59 | disposition home or self-care (01) | LOC: AOT 06:00 | PROVIDERS: PCP Nurse Practitioner Family; Referring Provider Family Medicine; Visit Provider Family Medicine | DX: G89.29 Other chronic pain (principal); M54.9 Dorsalgia, unspecified | CPT/HCPCS: 97166; 97530 ==

== ENCOUNTER → 2019-11-18 16:34 | Outpatient (BNVA) | payer MEDICARE, OTHER, SELFPAY | PROVIDERS: PCP Nurse Practitioner Family; Visit Provider Nurse Practitioner Family | DX: Z11.59 Encounter for screening for other viral diseases (principal) | CPT/HCPCS: 87635 ==

== ENCOUNTER → 2020-01-18 11:01 | Outpatient (BNVA) | payer MEDICARE, OTHER, SELFPAY | PROVIDERS: PCP Nurse Practitioner Family; Visit Provider Family Medicine | DX: E11.9 Type 2 diabetes mellitus without complications (principal); I10 Essential (primary) hypertension; F41.9 Anxiety disorder, unspecified; Z79.4 Long term (current) use of insulin | CPT/HCPCS: 80053; 80061; 83036; 84443; 85025 ==

== ENCOUNTER → 2020-04-18 11:20 | Outpatient (BNVA) | payer MEDICARE, OTHER, SELFPAY | PROVIDERS: PCP Nurse Practitioner Family; Visit Provider Family Medicine | DX: R29.6 Repeated falls (principal); E11.42 Type 2 diabetes mellitus with diabetic polyneuropathy; I10 Essential (primary) hypertension; F32.9 Major depressive disorder, single episode, unspecified; F41.9 Anxiety disorder, unspecified; K21.9 Gastro-esophageal reflux disease without esophagitis; M54.9 Dorsalgia, unspecified; I25.810 Atherosclerosis of coronary artery bypass graft(s) without angina pectoris; E78.5 Hyperlipidemia, unspecified; K12.0 Recurrent oral aphthae | CPT/HCPCS: 80053; 80061; 83036; 84443; 85025 ==

== ENCOUNTER 2020-05-11 06:00 | Outpatient (RCR) | payer MEDICARE, OTHER, SELFPAY | END 2020-05-17 16:29 | disposition home or self-care (01) | LOC: AOT 06:00 | PROVIDERS: PCP Nurse Practitioner Family; Referring Provider Family Medicine; Visit Provider Family Medicine | DX: R29.6 Repeated falls (principal) | CPT/HCPCS: 97166; 97530 ==

== ENCOUNTER → 2020-07-11 10:24 | Outpatient (BNVA) | payer MEDICARE, OTHER, SELFPAY | PROVIDERS: PCP Nurse Practitioner Family; Visit Provider Family Medicine | DX: E78.2 Mixed hyperlipidemia (principal); F41.9 Anxiety disorder, unspecified; I10 Essential (primary) hypertension; F32.9 Major depressive disorder, single episode, unspecified; M54.9 Dorsalgia, unspecified; K21.9 Gastro-esophageal reflux disease without esophagitis; I25.810 Atherosclerosis of coronary artery bypass graft(s) without angina pectoris; E11.42 Type 2 diabetes mellitus with diabetic polyneuropathy; Z79.4 Long term (current) use of insulin | CPT/HCPCS: 80053; 80061; 83036; 84443; 85025 ==

== ENCOUNTER → 2020-08-18 13:31 | Outpatient (BNVA) | payer MEDICARE, OTHER, SELFPAY | PROVIDERS: PCP Nurse Practitioner Family; Visit Provider Family Medicine | DX: A41.9 Sepsis, unspecified organism (principal); N39.0 Urinary tract infection, site not specified; Z09 Encounter for follow-up examination after completed treatment for conditions other than malignant neoplasm | CPT/HCPCS: 81000; 85025 ==

== ENCOUNTER → 2020-10-10 10:00 | Outpatient (BNVA) | payer MEDICARE, OTHER, SELFPAY | PROVIDERS: PCP Nurse Practitioner Family; Visit Provider Family Medicine | DX: E11.622 Type 2 diabetes mellitus with other skin ulcer (principal); L97.919 Non-pressure chronic ulcer of unspecified part of right lower leg with unspecified severity; E78.2 Mixed hyperlipidemia; R29.6 Repeated falls; E11.42 Type 2 diabetes mellitus with diabetic polyneuropathy; I10 Essential (primary) hypertension; F41.9 Anxiety disorder, unspecified; K21.9 Gastro-esophageal reflux disease without esophagitis; Z79.4 Long term (current) use of insulin | CPT/HCPCS: 80053; 80061; 83036; 84443; 85025 ==

== ENCOUNTER 2020-10-18 08:04 | Outpatient (CLI) | payer MEDICARE, OTHER, SELFPAY | END 2020-10-18 08:05 | disposition home or self-care (01) | PROVIDERS: PCP Nurse Practitioner Family; Visit Provider Thoracic Surgery (Cardiothoracic Vascular Surgery) | DX: I96 Gangrene, not elsewhere classified (principal); E11.622 Type 2 diabetes mellitus with other skin ulcer; L97.812 Non-pressure chronic ulcer of other part of right lower leg with fat layer exposed; Z87.891 Personal history of nicotine dependence | CPT/HCPCS: 11042; G0463 ==

== ENCOUNTER 2020-10-25 10:54 | Outpatient (CLI) | payer MEDICARE, OTHER, SELFPAY | END 2020-10-25 10:55 | disposition home or self-care (01) | LOC: WOUND 10:55 | PROVIDERS: PCP Nurse Practitioner Family; Visit Provider Thoracic Surgery (Cardiothoracic Vascular Surgery) | DX: E11.622 Type 2 diabetes mellitus with other skin ulcer (principal); L97.811 Non-pressure chronic ulcer of other part of right lower leg limited to breakdown of skin; Z87.891 Personal history of nicotine dependence | CPT/HCPCS: 97597 ==

== ENCOUNTER 2020-11-02 07:54 | Outpatient (CLI) | payer MEDICARE, OTHER, SELFPAY | END 2020-11-02 07:55 | disposition home or self-care (01) | LOC: WOUND 07:55 | PROVIDERS: PCP Nurse Practitioner Family; Visit Provider Thoracic Surgery (Cardiothoracic Vascular Surgery) | DX: E11.622 Type 2 diabetes mellitus with other skin ulcer (principal); L97.811 Non-pressure chronic ulcer of other part of right lower leg limited to breakdown of skin; Z87.891 Personal history of nicotine dependence | CPT/HCPCS: 97597 ==

== ENCOUNTER → 2021-01-17 16:54 | Outpatient (BNVA) | payer MEDICARE, OTHER, SELFPAY | PROVIDERS: PCP Nurse Practitioner Family; Visit Provider Nurse Practitioner Family | DX: I10 Essential (primary) hypertension (principal); E11.622 Type 2 diabetes mellitus with other skin ulcer; L97.919 Non-pressure chronic ulcer of unspecified part of right lower leg with unspecified severity; E78.2 Mixed hyperlipidemia; Z79.4 Long term (current) use of insulin; K21.9 Gastro-esophageal reflux disease without esophagitis | CPT/HCPCS: 80053; 80061; 82043; 82306; 82607; 83036; 84443; 85025 ==

== ENCOUNTER → 2021-03-28 11:43 | Outpatient (BNVA) | payer MEDICARE, OTHER, SELFPAY | PROVIDERS: PCP Family Medicine; Visit Provider Family Medicine | DX: E11.9 Type 2 diabetes mellitus without complications (principal); E78.5 Hyperlipidemia, unspecified; I10 Essential (primary) hypertension; E55.9 Vitamin D deficiency, unspecified | CPT/HCPCS: 80053; 80061; 82306; 82607; 83036; 85025 ==

== ENCOUNTER → 2021-05-10 13:50 | Outpatient (BNVA) | payer MEDICARE, OTHER, SELFPAY | PROVIDERS: PCP Family Medicine; Visit Provider Nurse Practitioner Family | DX: R50.9 Fever, unspecified (principal); R11.2 Nausea with vomiting, unspecified; Z20.822 Contact with and (suspected) exposure to COVID-19 | CPT/HCPCS: 87635 ==

== ENCOUNTER → 2021-08-01 11:16 | Outpatient (BNVA) | payer MEDICARE, OTHER, SELFPAY | PROVIDERS: PCP Family Medicine; Visit Provider Family Medicine | DX: E11.42 Type 2 diabetes mellitus with diabetic polyneuropathy (principal); E55.9 Vitamin D deficiency, unspecified; Z79.4 Long term (current) use of insulin; E78.5 Hyperlipidemia, unspecified; M54.9 Dorsalgia, unspecified; M54.50 Low back pain, unspecified; G89.29 Other chronic pain; I25.810 Atherosclerosis of coronary artery bypass graft(s) without angina pectoris; K21.9 Gastro-esophageal reflux disease without esophagitis; F41.9 Anxiety disorder, unspecified; F32.9 Major depressive disorder, single episode, unspecified; E78.2 Mixed hyperlipidemia; I10 Essential (primary) hypertension | CPT/HCPCS: 80053; 80061; 82306; 83036; 84443; 85025 ==

== ENCOUNTER → 2022-01-25 12:55 | Day surgery (SDC) | payer MEDICARE, OTHER, SELFPAY ==
--- NOTE | 2022-01-25 12:12 | XR_ITS ---
WS: [id number] PORTABLE CHEST HISTORY: Post PICC insertion COMPARISON: 09/25/2019 Right-sided PICC line with tip in the distal SVC. No complications. Lung volumes are decreased. No pneumonia. No pleural effusion or pneumothorax. Cardiac size: Mildly prominent heart. Prior CABG. Mediastinum/Aorta: Atherosclerosis aorta. Fusion hardware thoracolumbar junction. There is a gap in the vertical dipika on the LEFT at the L1 leve l. Similar to the prior CT from 03/24/2019. XR/XR chest 1V portable [id number] IMPRESSION: Satisfactory placement right-sided PICC line.
[2022-01-25 13:00] VITALS: BP 120/70; PULSE 76; RESP 18; TEMP 36.2; O2SAT 92
--- NOTE | 2022-01-25 13:00 | PC.NURSE ---
Pt to GI infusions for placement of PICC line. Pt currently inpatient at [facility] in [place]. Accompanied by nurse Alonzo from [place]. Single lumen PICC placed to right basilic vein without difficulty. Tip terminates in distal SVC. Pt off floor via wheelchair accompanied by nurse to be taken back to [facility]. Copy of chest xray faxed to [facility].
== END ==
PROVIDERS: PCP Family Medicine; Visit Provider Internal Medicine Infectious Disease
DX: N12 Tubulo-interstitial nephritis, not specified as acute or chronic (principal); N28.1 Cyst of kidney, acquired
CPT/HCPCS: 36569; 71045

== ENCOUNTER → 2022-03-20 16:05 | Outpatient (BNVA) | payer MEDICARE, OTHER, SELFPAY | PROVIDERS: PCP Family Medicine; Visit Provider Nurse Practitioner Family | DX: N39.0 Urinary tract infection, site not specified (principal); R31.9 Hematuria, unspecified | CPT/HCPCS: 81000 ==

== ENCOUNTER → 2022-03-29 16:45 | Outpatient (BNVA) | payer MEDICARE, OTHER, SELFPAY | PROVIDERS: PCP Family Medicine; Visit Provider Family Medicine | DX: N39.0 Urinary tract infection, site not specified (principal); E11.9 Type 2 diabetes mellitus without complications; Z79.4 Long term (current) use of insulin; R53.1 Weakness; R29.6 Repeated falls | CPT/HCPCS: 81003; 87077; 87086; 87184 ==

== ENCOUNTER → 2022-04-19 16:40 | Outpatient (BNVA) | payer MEDICARE, OTHER, SELFPAY | PROVIDERS: PCP Family Medicine; Visit Provider Family Medicine | DX: N39.0 Urinary tract infection, site not specified (principal); R31.9 Hematuria, unspecified | CPT/HCPCS: 81000 ==

== ENCOUNTER 2022-06-30 23:55 | Inpatient (IN) | payer MEDICARE, OTHER, SELFPAY ==
--- NOTE | 2022-06-30 23:56 | XRR_ITS ---
PROCEDURE INFORMATION: Exam: XR Chest Exam date and time: 07/01/2022 12:13 AM Age: 77 years old Clinical indication: Chest wall pain; Additional info: Cp TECHNIQUE: Imaging protocol: Radiologic exam of the chest. Views: 1 view. COMPARISON: CR XR chest 1V portable [id number] 01/25/2022 1:56 PM FINDINGS: Lungs: Mild left basilar atelectasis and/or pneumonia. Pleural spaces: Unremarkable. No pleural effusion. No pneumothorax. Heart/Mediastinum: Unremarkable. No cardiomegaly. Vasculature: Calcification of the thoracic aorta and/or great vessels consistent with atherosclerotic vessel disease. Bones/joints: Stable sternotomy. Other findings: Patient rotation to the left. Stable metallic postoperative changes over the thoracolumbar spine with metallic artifact. XR/XR chest 1V [id number] IMPRESSION: Mild left basilar atelectasis and/or pneumonia.
--- NOTE | 2022-06-30 23:57 | ECG_ITS ---
[facility] Test Date: 2022-07-01 Pat Name: Dominick Cifuentes Department: Room: Gender: Male Educational Program Director: : 1945 Requested By: Mari Armstrong Order Number: [id number] Von MD: Ted Blood M.D. Measurements Intervals [place] Rate: 121 P: 49 NH: 186 QRS: 10 QRSD: 72 T: 44 QT: 309 QTc: 440 Interpretive Statements SINUS TACHYCARDIA with first-degree AV block MINIMAL VOLTAGE CRITERIA FOR LVH, CONSIDER NORMAL VARIANT [MEETS CRITERIA IN ONE OF: R(aVL), S(V1), R(V5), R(V5/V6)+S(V1)] POSSIBLE ANTERIOR MYOCARDIAL INFARCTION , OF INDETERMINATE AGE [30 ms Q WAVE IN V3/V4, OR R < 0.2 mV IN V4] Compared to ECG 03/24/2019 01:18:15 Sinus bradycardia no longer present Myocardial infarct finding still present Electronically Signed On 07-01-2022 10:25:00 CDT by Ted Blood M.D. [id number]
[2022-06-30 23:58] VITALS: BP 81/50; PULSE 115; RESP 18; TEMP 36.6; O2SAT 92; BMI 32.3
[2022-07-01] VITALS (127 sets, daily range): BP systolic 82–162; BP diastolic 49–90; PULSE 74–118; RESP 9–31; TEMP 36.4–36.8; O2SAT 89–99; BMI 29.8
--- NOTE | 2022-07-01 00:02 | W.ED.FEVER ---
HPI - Fever General: Chief Complaint: Chest Pain Stated Complaint: cp Time Seen by Provider: 06/30/22 23:56 Source: patient and EMS Mode of arrival: EMS Limitations: no limitations History of Present Illness: Patient presents emergency department today brought by ambulance for evaluation treatment of sudden onset retrosternal chest pain. EMS indicated that the family called 911 after the patient developed sudden retrosternal chest pain. MS indicated took approximately 30 minutes to reach the patient but, by the time they got there he had resolution of his pain. Family provided the patient a nitro which resolved his discomfort. Patient has a history of CABG back in 2019 and has not had any significant cardiac issues since that time. EMS provided full dose aspirin in route. They also have him on 2 L by nasal cannula. They had a glucose reading of 570 but, family indicated he was postprandial. Patient has indwelling Payne catheter and has a PICC line in the left upper arm. He denies abdominal pain, vomiting, diarrhea, or fevers. Patient was in the ICU recently with a severe urinary tract infection. EMS also indicates bilateral pelvic stress fractures for which patient can be nonweightbearing-they are using a bedsheet to help transfer him off the gurney. Patient denies any shortness of breath. He reports no current chest pains. Family in the room begins mentioning patient's other issues including rash in the lower back, groin and perineal irritation from adult diapers, swelling and complaints of warmth and nonweightbearing on the left knee... Review of Systems General: Reports: 10 or more systems reviewed and unremarkable except in HPI and below PFSH ED PFSH: Medical History Back pain with history of spinal surgery Chronic back pain Coronary artery disease involving coronary bypass graft of [place] heart 2019 Diabetes Labs in 3 months. Increase lantus by 10 units. Former smoker Hypertension Sepsis 2019 Urinary retention Surgical History H/O angioplasty 1992 H/O spinal fusion 1999, 2012 History of prostate surgery 2004 Hx of appendectomy 1987 Knee joint replacement status Bilateral Stented coronary artery 1996 Family History Denies family history of CAD (coronary artery disease) Chronic kidney disease (CKD) Cancer Social History Smoking and tobacco status: former smoker Alcohol intake: never Substance/Drug Use: never Adopted: No Household members: spouse Housing: House Marital status: Number of children: 4 Number of grandchildren: 4 Highest education level completed: Associate Degree: Occupational, Technical, Vocational Program service: Yes status: Retired branch: [employer] Current occupational status: disabled Pets and animals: Yes Current gender identity: Male Physical Exam Const: COMMON NORMALS: no acute distress and patient oriented x3 HENMT: COMMON NORMALS: normocephalic, atraumatic, hearing grossly normal bilaterally and moist oral mucous membranes HEAD & SCALP: normocephalic and atraumatic Neck/C-Spine: COMMON NORMALS: full ROM and no meningeal signs Chest: COMMONS NORMALS: normal inspection of the chest Resp: COMMON NORMALS: normal respiratory effort, No retractions and No use of accessory muscles Cardio: COMMON NORMALS: negative for regular rate (Mild tachycardia) RATE: abnormal rate (Mild tachycardia) GI: COMMON NORMALS: Normal to inspection, nondistended, normoactive bowel sounds present, Soft to palpation and non-tender PALPATION: Yes Soft to palpation : OTHER: Indwelling Payne present. Extremity: NARRATIVE EXTREMITY EXAM: Patient is using his upper extremities without difficulty however, patient is nonweightbearing or ambulatory in the ER. Neuro: COMMON NORMALS: patient oriented x3 MENINGEAL SIGNS: Yes no meningeal signs Psych: COMMON NORMALS: mental status grossly normal, Normal thought process present and cooperative THOUGHT PROCESS: Normal thought process present Course Vital Signs: Vital signs: Vital Signs Temperature 97.8 F 06/30/22 23:58 Pulse Rate 118 H 07/01/22 00:14 Respiratory Rate 16 07/01/22 00:14 Blood Pressure 82/49 07/01/22 00:14 Pulse Oximetry 90 07/01/22 00:14 MDM - Fever Medical Decision Making Patient presented to the emergency department today brought by EMS for complaints of sudden onset retrosternal chest pain. Pain was resolved with nitroglycerin but, patient was given 325 aspirin in route. Patient's EKG showed tachycardia but no significant ST elevation or changes. Patient's blood pressures have been somewhat soft and he has been receiving fluids here in the ER. Patient's lab work shows elevated troponins and significantly elevated glucose. After evaluating the patients labs and evaluating at bedside, Dr. Short indicated the patient's need for inpatient admission and he spoke to the family regarding this recommendation. Family was in agreement. Dr. Short was able to speak with the hospitalist regarding the patient's presentation and evaluation here in the emergency department. Hospitalist service is agreed to admit the patient to the ICU for further management and intervention as needed. Differential Diagnosis Likely diverticulitis (Acute [place], COPD exacerbation, cardiac arrhythmia, DKA, pleurisy) Lab Data 06/30/22 00:55 06/30/22 00:55 Radiology Impressions Chest X-Ray 06/30/22 23:56 IMPRESSION: Mild left basilar atelectasis and/or pneumonia. Laboratory Results WBC 14.3 10^3/uL (4.0-10.0) H 06/30/22 00:55 RBC 4.42 10^6/uL (4.1-5.3) 06/30/22 00:55 Hgb 12.0 g/dL (11.7-16.6) 06/30/22 00:55 Hct 38.0 % (42.0-52.0) L 06/30/22 00:55 MCV 86.0 fl (80-94) 06/30/22 00:55 MCH 27.1 pg (28.0-34.0) L 06/30/22 00:55 MCHC 31.6 g/dL (30.0-36.0) 06/30/22 00:55 RDW 12.9 % (12.1-15.1) 06/30/22 00:55 Plt Count 239 10^3/cmm (130-400) 06/30/22 00:55 MPV 10.7 fL (7.4-10.4) H 06/30/22 00:55 Neut % (Auto) 88.6 % 06/30/22 00:55 Lymph % (Auto) 5.6 % 06/30/22 00:55 [place] % (Auto) 5.1 % 06/30/22 00:55 Eos % (Auto) 0.2 % 06/30/22 00:55 Baso % (Auto) 0.2 % 06/30/22 00:55 Neut # (Auto) 12.70 10^3/uL (1.8-7.7) H 06/30/22 00:55 Lymph # (Auto) 0.8 10^3/uL (0.8-4.8) 06/30/22 00:55 [place] # (Auto) 0.7 10^3/uL (0.2-0.9) 06/30/22 00:55 Eos # (Auto) 0.0 10^3/uL (0.0-0.8) 06/30/22 00:55 Baso # (Auto) 0.0 10^3/uL (0.0-0.1) 06/30/22 00:55 Nucleated RBC % (auto) 0 % 06/30/22 00:55 Nucleated RBCs # 0.0 /100WBC 06/30/22 00:55 Specimen Type Arterial 07/01/22 01:48 Sample Site Radial, left 07/01/22 01:48 ABG pH 7.38 (7.35-7.45) 07/01/22 01:48 ABG pCO2 42.4 mmHg (35-45) 07/01/22 01:48 ABG pO2 60.2 mmHg (80.0-100.0) L 07/01/22 01:48 ABG HCO3 24.8 mmol/L (22-26) 07/01/22 01:48 ABG Base Excess -0.5 mmol/L (-2.0-2.0) 07/01/22 01:48 Shyam Test Pos 07/01/22 01:48 Hematocrit 36.9 % (42-52) L 07/01/22 01:48 O2 Delivery Device Room air 07/01/22 01:48 Webbing Inspector ID [email or web address] 07/01/22 01:48 Sodium 133 mmol/L (136-145) L 06/30/22 00:55 Potassium 4.7 mmol/L (3.5-5.1) 06/30/22 00:55 Chloride 99 mmol/L (98-107) 06/30/22 00:55 Carbon Dioxide 20 mmol/L (22-29) L 06/30/22 00:55 Anion Gap 18.7 (5-19) 06/30/22 00:55 BUN 28 mg/dL (8-23) H 06/30/22 00:55 Creatinine 1.2 mg/dL (0.7-1.2) 06/30/22 00:55 GFR Calculation Not Reportable 06/30/22 00:55 Glucose 540 mg/dL (65-115) H* 06/30/22 00:55 POC Glucose 291 mg/dL (70-110) H 07/01/22 03:03 Calculated Osmolality 306 mOsm/kg (285-295) H 06/30/22 00:55 Lactic Acid 1.4 mmol/L (0.5-2.2) 07/01/22 00:55 Calcium 8.6 mg/dL (8.5-10.5) 06/30/22 00:55 Total Bilirubin 0.2 mg/dL (0.15-1.2) 06/30/22 00:55 AST 16 U/L (0-40) 06/30/22 00:55 ALT 13 U/L (0-41) 06/30/22 00:55 Alkaline Phosphatase 166 U/L (40-130) H 06/30/22 00:55 Troponin T Baseline 130 ng/L (0-15) H* 06/30/22 00:55 Troponin T 120 Minute 128.6 ng/L (0-15) H 07/01/22 02:42 Delta Troponin T -1.4 ABS# (0-10) L 07/01/22 02:42 NT-Pro-B Natriuret Pep 882 pg/mL (0-450) H 06/30/22 00:55 Total Protein 6.6 g/dL (6.6-8.7) 06/30/22 00:55 Albumin 2.7 g/dL (3.5-5.2) L 06/30/22 00:55 Globulin 3.9 g/dL (1.3-4.6) 06/30/22 00:55 Procalcitonin 0.99 ng/mL (0-0.5) H 06/30/22 00:55 TSH 0.67 uIU/mL (0.27-4.20) 06/30/22 00:55 Urine Color Yellow (Yellow) 07/01/22 00:22 Urine Appearance Sl hazy (CLEAR) A 07/01/22 00:22 Urine pH 6 (5-7) 07/01/22 00:22 Ur Specific [place] 1.000 (1.005-1.030) L 07/01/22 00:22 Urine Protein 1+ (Negative) H 07/01/22 00:22 Urine Glucose (UA) 4+ (Normal) H 07/01/22 00:22 Urine Ketones Negative (Negative) 07/01/22 00:22 Urine Blood 2+ (Negative) H 07/01/22 00:22 Urine Nitrate Negative (Negative) 07/01/22 00:22 Urine Bilirubin Neg (Negative) 07/01/22 00: Urine Urobilinogen Norm mg/dL (Negative) 07/01/22 00:22 Ur Leukocyte Esterase 2+ (Negative) H 07/01/22 00:22 Urine RBC 5-10 /hpf (0-2) H 07/01/22 00:22 Urine WBC 25-40 /hpf (0-5) H 07/01/22 00:22 Ur Squamous Epith Cells 0-4 /hpf (0-5) H 07/01/22 00:22 Amorphous Sediment Not Reportable 07/01/22 00:22 Urine Bacteria Trace /hpf (NONE) 07/01/22 00:22 Urine Yeast 2+ /hpf H 07/01/22 00:22 Serum Ketones Negative (Negative) 07/01/22 00:55 Discharge Plan Discharge Patient Disposition: Admitted As Inpatient Admit Provider: Stephen Guillen Clinical Impression: Chest pain, Diabetes Condition: Stable Coding Level of Care Code ED Mechanism Inspector for Karli Small
[2022-07-01] MEDS: sodium chloride 0.9% 1,000 ML 999 ML IV (00:46)
[2022-07-01 01:02] LABS: Basophils % 0.2 %; Eosinophils % 0.2 %; Lymphocytes # 0.8 10^3/uL (0.8-4.8); Lymphocytes % 5.6 %; Mean Corpuscular HGB Conc 31.6 g/dL (30.0-36.0); Mean Corpuscular Hemoglobin 27.1 pg (28.0-34.0); Mean Platelet Volume 10.7 fL (7.4-10.4); Monocytes # 0.7 10^3/uL (0.2-0.9); Monocytes % 5.1 %; Neutrophils % 88.6 %; Nucleated Red Blood Cells % 0 %; Platelet Count 239 10^3/cmm (130-400); Red Blood Count 4.42 10^6/uL (4.1-5.3); Red Cell Distribution Width 12.9 % (12.1-15.1); White Blood Count 14.3 10^3/uL (4.0-10.0)
[2022-07-01 01:12] LABS: Urine Color Yellow (Yellow)
[2022-07-01 01:13] LABS: Add Urine Microscopic? YES; Bilirubin Urine Neg (Negative); Blood Urine 2+ (Negative); Glucose Urine UA 4+ (Normal); Ketones Urine Negative (Negative); Leukocyte Esterase Urine 2+ (Negative); Nitrate Urine Negative (Negative); Protein Urine 1+ (Negative); Urine Appearance SL Hazy (CLEAR); Urobilinogen Urine Norm (Negative); pH Urine 6 (5-7)
[2022-07-01 01:14] LABS: Lactic Sepsis W/Reflex 1.4 mmol/L (0.5-2.2)
[2022-07-01 01:15] LABS: WBC Urine 25-40 /hpf (0-5)
[2022-07-01 01:16] LABS: Add Urine Culture? Yes; Bacteria Urine TRACE /hpf; Squamous Epithelial Cell Urine 0-4 /hpf (0-5)
[2022-07-01 01:26] LABS: NT Pro B Type Natriuretic Pept 882 pg/mL (0-450); Procalcitonin 0.99 ng/mL (0-0.5); Thyroid Stimulating Hormone 0.67 uIU/mL (0.27-4.20)
[2022-07-01 01:33] LABS: Troponin(5th) Baseline 130 ng/L (0-15)
[2022-07-01 01:37] LABS: Alanine Aminotransferase 13 U/L (0-41); Albumin Level 2.7 g/dL (3.5-5.2); Alkaline Phosphatase 166 U/L (40-130); Anion Gap 18.7 (5-19); Aspartate Amino Transferase 16 U/L (0-40); Blood Urea Nitrogen 28 mg/dL (8-23); Calcium 8.6 mg/dL (8.5-10.5); Carbon Dioxide 20 mmol/L (22-29); Chloride 99 mmol/L (98-107); Globulin 3.9 g/dL (1.3-4.6); Osmolality Calculated 306 mOsm/kg (285-295); Potassium 4.7 mmol/L (3.5-5.1); Sodium 133 mmol/L (136-145); Total Bilirubin 0.2 mg/dL (0.15-1.2); Total Protein 6.6 g/dL (6.6-8.7)
[2022-07-01 01:38] LABS: Glucose 540 mg/dL (65-115)
[2022-07-01 02:03] LABS: ABG PCO2 42.4 mmHg (35-45); ABG PH Result 7.38 (7.35-7.45); Arterial Blood Gas Hematocrit 36.9 % (42-52); Base Excess ABG -0.5 mmol/L (-2.0-2.0); Blood Gas Allen Test Pos; Blood Gas Sample Site Radial, left; Blood Gas Sample Type Arterial; HCO3 ABG 24.8 mmol/L (22-26); Oxygen Device ROOM AIR; PO2 ABG 60.2 mmHg (80.0-100.0)
[2022-07-01 02:05] LABS: Ketone (Acetest) Serum Negative (Negative)
[2022-07-01] MEDS: insulin regular-human 100 units/1 mL 10 UNIT IVP (02:08)
[2022-07-01 03:05] LABS: Glucose Point of Care 291 mg/dL (70-110)
[2022-07-01] MEDS: sodium chloride 0.9% 1,000 ML 150 ML IV (03:08)
[2022-07-01] MEDS: cefTAZidime 2,000 MG in sodium chloride 0.9% (plus) 50 ML 150 MG IV (03:08)
[2022-07-01 03:28] LABS: Troponin 5 2HR 128.6 ng/L (0-15)
[2022-07-01 04:07] LABS: Troponin 5 2HR Delta -1.4 ABS# (0-10)
[2022-07-01] MEDS: heparin 5,000 unit/mL INJ 1 mL IV (05:16)
[2022-07-01] MEDS: heparin drip 25,000 UNIT/500 ML PREMIX 25 UNIT IV (05:23)
--- NOTE | 2022-07-01 05:36 | CTR_ITS ---
PROCEDURE INFORMATION: Exam: CT Abdomen And Pelvis Without Contrast Exam date and time: 07/01/2022 5:57 AM Age: 77 years old Clinical indication: Abdominal pain; Other: Back; Prior surgery; Surgery type: Lumbar; Additional info: UTI, back pain TECHNIQUE: Imaging protocol: Computed tomography of the abdomen and pelvis without contrast. Radiation optimization: All CT scans at this facility use at least one of these dose optimization techniques: automated exposure control; mA and/or kV adjustment per patient size (includes targeted exams where dose is matched to clinical indication); or iterative reconstruction. REPORTING DATA: Count of CT and Cardiac NM exams in prior 12 months: This patient has received 0 known CTs and 0 known cardiac nuclear medicine studies in the 12 months prior to the current study. COMPARISON: CT kidney stone [id number] 03/24/2019 1:48 AM RADIATION DOSE METRICS: Total DLP (mGy-cm): 753.57 FINDINGS: Lungs: There is subsegmental atelectasis in the left lung. Liver: The liver is normal. Gallbladder and bile ducts: There is a large calcified stone in the gallbladder neck. No sign of cholecystitis. No biliary dilation. Pancreas: The pancreas is unremarkable. Spleen: The spleen is mildly enlarged. Adrenal glands: There is an intermediate density 2.2 x 2.1 cm left adrenal nodule which is increased in size since 03/24/2020 and measured 1.8 x 1.2 cm. Kidneys and ureters: There are multiple simple renal cysts bilaterally. There is a hemorrhagic cyst at the lower pole on the left. There is focal irregular scarring at the posterior inferior margin of the left kidney suggesting sequelae of remote renal hemorrhage (seen on 03/24/2019). There is a 2 mm nonobstructive stone in the left kidney. There is no hydronephrosis or ureteral dilation on the left. Stomach and bowel: The stomach is unremarkable. The small bowel is nondilated. Colon is unremarkable. The rectum is dilated and stool filled measuring 8.5 cm diameter. Appendix: The appendix is not visible. Intraperitoneal space: There is no free air or significant intraperitoneal free fluid. Vasculature: There is severe aortic atherosclerotic disease. Lymph nodes: There is no lymphadenopathy in the retroperitoneum, mesentery, pelvis or inguinal regions. Urinary bladder: The Payne catheter is appropriately positioned with the bulb and tip within the bladder lumen. The urinary bladder is decompressed, preventing meaningful evaluation of wall thickness. Reproductive: The prostate is not visible. Bones/joints: There is severe multilevel degenerative disease in the lumbar spine. There is extensive posterolateral thoracolumbar fusion. There is bulky hypertrophy of the lower lumbar facets. There is grade 1 degenerative anterolisthesis of L5 on S1. There are comminuted minimally displaced acute fractures of the left distal superior pubic ramus and pubic symphysis. There is mild chronic there is diastasis of pubic symphysis which is increased since 03/24/2019. There are comminuted nondisplaced fractures of the left distal inferior pubic ramus. The hips are unremarkable. SI joints are symmetric. No visible fracture in the lumbar spine. Soft tissues: The abdominal wall is intact. CT/CT abdomen pelvis wo con [id number] IMPRESSION: 1. Acute fractures of the left distal superior and inferior pubic rami with diastasis of the pubic symphysis. 2. No obstructive uropathy. Nonobstructive stone in the left kidney. 3. Dilated stool-filled rectum measuring 8.5 cm diameter. No sign of stercoral colitis. 4. Increased size of left adrenal nodule since 03/24/2019. If the patient has no cancer history, then consider follow-up non-emergent adrenal CT or resection. If the patient has a history of cancer, then consider biopsy or PET/CT. (Reference: Zev) 5. Incidental findings above. COMMENTS: Consistent with the [place] [employer]'s Incidental Findings Committee white paper (J Am Lily Radiol 2018): Any incidental renal lesion less than 1 cm or classified as too small to characterize, or any incidental cystic renal lesion characterized as simple-appearing, is likely benign. No follow-up imaging is recommended for these lesions per consensus recommendations based on imaging criteria. REFERENCES: Zev ALBERTS, et al. Management of Incidental Adrenal Masses: A White Paper of the ACR Incidental Findings Committee. J Am Lily Radiol. 2017;14(8):9733-0373.
--- NOTE | 2022-07-01 05:39 | PM.HP ---
Providers/Chief Complaint Admitting Physician: Stephen Guillen MD Primary Care Provider: Geoff Reno MD Chief Complaint: cp History of Present Illness Dominick Cifuentes is a 77 year old male with past medical history of urinary retention, chronic back pain, CABG x5, chronic back pain, status post spinal fusion, recently hospitalized at [facility] for urosepsis, lives at home with his son, who presents [facility] due to complaints of a fall, worsening back pain. He has a Payne catheter in place, chronic and a PICC line in place, for what reason patient is unsure? He also is bedbound due to history of bilateral pelvic fractures, nonweightbearing. According to ER provider patient presented for chest pain, however he tells me that he does not have a any chest pain, denies any chest discomfort, he tells me he has a 5 vessel bypass,, however EMS was brought to his house due to complaints of sudden onset retrosternal chest pain, family called EMS due to chest pain complaints, they are not at bedside. Currently he denies any chest pain, no shortness of breath, his only complaint is low back pain 8 as he has had 3 spinal fusions, he also complains of left knee pain, denies any fevers, no chills, no headache, blurry vision, no shortness of breath, no abdominal pain, no diarrhea, no headache, blurry vision, is alert to person, to place, not to time, can follow commands Review of Systems Const: Denies: fever(s) Eyes: Denies: change in vision Card: Denies: chest pain Resp: Denies: dyspnea GI: Denies: abdominal pain : Reports: flank pain Medications/Allergies Home Medications Medication Instructions Recorded Confirmed Last Taken Type nitroglycerin 0.4 mg sublingual 0.4 mg sublingual Q5M PRN Chest 03/23/19 04/19/22 01/25/22 History tablet Pain aspirin 325 mg tablet 325 mg PO DAILY 07/23/19 04/19/22 01/25/22 History Power wheel chair #1 ea 07/22/20 04/19/22 01/25/22 Rx ondansetron 8 mg disintegrating 8 mg PO Q8H PRN nausea and 05/10/21 04/19/22 01/25/22 Rx tablet vomiting #9 tabs atenolol 100 mg tablet See Rx Instructions .Route 08/01/21 04/19/22 01/25/22 Rx .COMPLEX #90 tabs bupropion HCl 150 mg 24 hr tablet, See Rx Instructions .Route 08/01/21 04/19/22 01/25/22 Rx extended release .COMPLEX #240 tabs empagliflozin 25 mg tablet See Rx Instructions .Route 08/01/21 04/19/22 01/25/22 Rx (Jardiance) .COMPLEX #90 tabs famotidine 40 mg tablet See Rx Instructions .Route 08/01/21 04/19/22 01/25/22 Rx .COMPLEX #180 tabs fenofibrate nanocrystallized 145 See Rx Instructions .Route 08/01/21 04/19/22 01/25/22 Rx mg tablet .COMPLEX #90 tabs insulin regular human 100 unit/mL See Rx Instructions .Route 08/01/21 04/19/22 01/25/22 Rx injection solution (Novolin R .COMPLEX #30 mL Regular U-100 Insulin) insulin syringe-needle U-100 1 mL #200 ea 08/01/21 04/19/22 01/25/22 Rx 31 gauge x 5/16 (Advocate Syringes) memantine 10 mg tablet (Namenda) 10 mg PO BID #180 tabs 08/01/21 04/19/22 01/25/22 Rx nitroglycerin 6.5 mg 6.5 mg PO BID #180 caps 08/01/21 04/19/22 01/25/22 Rx capsule,extended release pen needle, diabetic 31 gauge x #200 ea 08/01/21 04/19/22 01/25/22 Rx 3/16 (Sure Comfort Pen Needle) pregabalin 150 mg capsule (Lyrica) 150 mg PO TID #270 caps 08/01/21 04/19/22 01/25/22 Rx sertraline 100 mg tablet See Rx Instructions .Route 08/01/21 04/19/22 01/25/22 Rx .COMPLEX #90 tabs carisoprodol 350 mg tablet 350 mg PO TID #90 tabs 10/24/21 04/19/22 01/25/22 Rx dulaglutide 0.75 mg/0.5 mL 0.75 mg (0.5 mL) SUBCUT .weekly #2 1004/19/22 01/25/22 Rx subcutaneous pen injector mL (Trulicity) insulin glargine 100 unit/mL (3 105 unit (1.05 mL) SUBCUT DAILY 90 01/22/22 04/19/22 01/25/22 Rx mL) subcutaneous pen (Lantus days #189 mL Solostar U-100 Insulin) nitrofurantoin 100 mg PO BID 10 days #20 caps 04/02/22 04/19/22 Unknown Rx monohydrate/macrocrystals 100 mg capsule (Macrobid) ezetimibe 10 mg tablet See Rx Instructions .Route 04/04/22 04/19/22 Unknown Rx .COMPLEX #90 tabs lisinopril 20 See Rx Instructions .Route 05/15/22 Unknown Rx mg-hydrochlorothiazide 12.5 mg .COMPLEX #90 tabs tablet diltiazem HCl 240 mg capsule,24 240 mg PO DAILY #90 caps 05/28/22 Unknown Rx hr,extended release ergocalciferol (vitamin D2) 1,250 See Rx Instructions .Route 05/28/22 Unknown Rx mcg (50,000 unit) capsule .COMPLEX #16 caps insulin syringe-needle U-100 1 mL #100 ea 05/28/22 Unknown Rx 31 gauge x 5/16 (BD Insulin Syringe Ultra-Fine) alprazolam 0.5 mg tablet 0.5 mg PO BID #60 tabs 06/01/22 Unknown Rx hydrocodone 5 mg-acetaminophen 325 1 tab PO Q6H 20 days #80 tabs 06/22/22 Unknown Rx mg tablet Allergies Allergy/AdvReac Type Severity Reaction Status Date / Time adhesive Allergy Unknown Verified 04/19/22 16:39 amitriptyline Allergy ALGY-Hives Verified 04/19/22 16:39 cefaclor [From Ceclor] Allergy ALGY-Hives Verified 04/19/22 16:39 PFSH Acute PFSH: Medical History Back pain with history of spinal surgery Chronic back pain Coronary artery disease involving coronary bypass graft of [place] heart 2019 Diabetes Labs in 3 months. Increase lantus by 10 units. Former smoker Hypertension Sepsis 2019 Urinary retention Surgical History H/O angioplasty 1992 H/O spinal fusion 1999, 2012 History of prostate surgery 2004 Hx of appendectomy 1987 Knee joint replacement status Bilateral Stented coronary artery 1996 Family History Denies family history of CAD (coronary artery disease) Chronic kidney disease (CKD) Cancer Social History Smoking and tobacco status: former smoker Alcohol intake: never Substance/Drug Use: never Adopted: No Household members: spouse Housing: House Marital status: Number of children: 4 Number of grandchildren: 4 Highest education level completed: Associate Degree: Occupational, Technical, Vocational Program service: Yes status: Retired branch: [employer] Current occupational status: disabled Pets and animals: Yes Current gender identity: Male Vitals/I&O/Wt Last Vital Signs Temp 97.8 F 06/30/22 23:58 Pulse 118 H 07/01/22 00:14 Resp 16 07/01/22 00:14 BP 82/49 07/01/22 00:14 Pulse Ox 90 07/01/22 00:14 Weight last 48 hrs Weight 90.718 kg Physical Exam Const: COMMON NORMALS: no acute distress GENERAL APPEARANCE: cooperative, well kempt and well developed ORIENTATION/CONSCIOUSNESS: Yes awake, Yes oriented to person and Yes oriented to place; not oriented to time HENMT: HEAD & SCALP: normocephalic Eye: COMMON NORMALS: Equal, round and reactive pupils present, EOMs intact bilaterally, conjunctivae normal and no scleral icterus CONJUNCTIVA: Yes conjunctivae normal PUPIL: Yes Equal, round and reactive pupils present Neck/C-Spine: COMMON NORMALS: full ROM, no lymphadenopathy, no JVD, Thyroid normal and No carotid bruits THYROID: Thyroid normal Lymph: LYMPHATIC: no lymphadenopathy noted Chest: COMMONS NORMALS: normal inspection of the chest Resp: COMMON NORMALS: normal respiratory effort, No retractions, No use of accessory muscles and clear to auscultation bilaterally AUSCULTATION: clear to auscultation bilaterally Cardio: COMMON NORMALS: no JVD, regular rate, regular rhythm, S1 normal heart sound present, S2 normal heart sound present, No murmurs present (Cardio) and Peripheral pulses 2+ throughout RATE: regular rate RHYTHM: regular rhythm HEART SOUNDS: S1 normal heart sound present and S2 normal heart sound present PERIPHERAL PULSES: Peripheral pulses 2+ throughout GI: COMMON NORMALS: Normal to inspection, nondistended, normoactive bowel sounds present, Soft to palpation and non-tender PALPATION: Yes Soft to palpation and Yes No hepatosplenomegaly present Back/Pelvis: COMMON NORMALS: no CVA tenderness Extremity: COMMON NORMALS: normal to inspection, full ROM and no pedal edema NARRATIVE EXTREMITY EXAM: Left knee and left thigh swelling, he tells me that is chronically swollen Neuro: COMMON NORMALS: patient oriented x3, CN's II-XII intact bilaterally, moves all extremities, no focal motor deficits and no sensory deficits noted MENINGEAL SIGNS: Yes no meningeal signs Psych: COMMON NORMALS: Normal thought process present, cooperative and speech normal APPEARANCE: Yes well kempt SPEECH: Yes normal speech Skin: COMMON NORMALS: turgor normal and no jaundice GENERAL SKIN EXAM: turgor normal Data 06/30/22 00:55 06/30/22 00:55 Micro: Microbiology 07/01/22 02:42 Blood Culture - Preliminary Blood SPECIMEN COLLECTED 07/01/22 02:42 Blood Culture - Preliminary Blood SPECIMEN COLLECTED A&P Assessment and plan (1) Shock: Plan Urinary tract infection, concerns for pyelonephritis -He has a PICC line in place, Payne in place, and was recently hospitalized at [facility] for a severe UTI? -We will have to get records from [facility] -CT scan abdomen pelvis -For now continue Zosyn -Obtain blood cultures NSTEMI -With history of CABG -Type I versus type II -He denies any active chest pain -Serial EKGs, serial troponins, telemetry monitoring -Continue aspirin, statin, heparin drip -Cardiac echo Recent history of fall, pelvic fractures, bedbound, with elevated troponins, family reported complaints of chest pain -We will order CT angiogram to rule out pulm embolism -Venous ultrasound Patient had shock in the emergency room blood pressure was 81/50 -Lactic acid was within normal limits -Had received fluids in the EMS -Received fluids in the emergency room -Currently normotensive -Monitor Hyperglycemia with type 2 diabetes mellitus, blood sugar over 500 ketones negative, pH within normal limits, bicarb 20 -Patient is unsure his insulin regimen at home he tells me his son takes care of that, -We will start him on Lantus 10 units twice daily with a high-dose sliding scale Heparin for DVT prophylaxis CODE STATUS patient is a DO NOT RESUSCITATE, but is okay with intubation, okay with ICU admission Attestations Medical Necessity Statement*: Patient requires hospitalization for UTI, concerns for pyelonephritis, NSTEMI, concern for pulmonary embolism, hyperglycemia, inpatient, greater than 2 midnights Diagnoses Shock R57.9
--- NOTE | 2022-07-01 05:43 | CTR_ITS ---
PROCEDURE INFORMATION: Exam: CTA Chest With Contrast Exam date and time: 07/01/2022 6:00 AM Age: 77 years old Clinical indication: Pain; Chest pressure; Prior surgery; Surgery type: Cabg; Additional info: Nstemi, chest pain, bed bound TECHNIQUE: Imaging protocol: Computed tomographic angiography of the chest with contrast. 3D rendering (Not supervised by radiologist): MIP and/or 3D reconstructed images were created by the technologist. Radiation optimization: All CT scans at this facility use at least one of these dose optimization techniques: automated exposure control; mA and/or kV adjustment per patient size (includes targeted exams where dose is matched to clinical indication); or iterative reconstruction. Contrast material: OMNI 350; Contrast volume: 80 ml; Contrast route: INTRAVENOUS (IV); REPORTING DATA: Count of CT and Cardiac NM exams in prior 12 months: This patient has received 0 known CTs and 0 known cardiac nuclear medicine studies in the 12 months prior to the current study. COMPARISON: CR (CHEST, ) 07/01/2022 12:13 AM RADIATION DOSE METRICS: Total DLP (mGy-cm): 404.23 FINDINGS: Pulmonary arteries: The pulmonary arteries are adequately opacified to the segmental level. The upper lung vessels are partially obscured by respiratory motion artifact. There is no pulmonary arterial filling defect to suggest embolism. Aorta: There is moderate aortic atherosclerotic disease. Lungs: There is decreased AP diameter of the distal trachea and central bronchi consistent with tracheobronchomalacia. The right lung is clear. The are is subsegmental atelectasis in the left upper lobe and lingula. There is dependent subsegmental atelectasis in the left lower lobe. There are clustered nodules and ground-glass opacities in the superior segment of the left lower lobe. There is a dominant 11 mm nodule on series 11, image 210. Pleural spaces: There is no pleural effusion or pneumothorax. Heart: Heart size is normal. There is no pericardial effusion. Coronary arteries: There is severe coronary artery calcification. There is evidence of coronary artery bypass grafting. Lymph nodes: There is no mediastinal or hilar lymphadenopathy. Bones/joints: There is posterolateral fusion partially imaged in the lower thoracic spine. No apparent surgical complications. There has been a sternotomy with intact repair. No dehiscence. No acute fracture. Soft tissues: The extrathoracic soft tissues are unremarkable. CT/CT angio chest PE protcl 28530 IMPRESSION: 1. No pulmonary embolism. 2. Clustered nodules and ground-glass opacities in the superior segment of the left lower lobe consistent with an infection or inflammatory process. 3. Tracheobronchomalacia. 4. Dominant 11 mm left lower lobe nodule requires follow-up. For patients at low risk (minimal or absent history of smoking and of other known risk factors), recommend CT Chest at 3-6 months, then consider CT Chest at 18-24 months. For patients at high risk (history of smoking or of other known risk factors), recommend CT Chest at 3-6 months, then CT Chest at 18-24 months. (Reference: Sukh) 5. Incidental findings above. REFERENCES: Sukh H, et al. Guidelines for Management of Incidental Pulmonary Nodules Detected on CT Images: From the Fleischner Society 2017. Radiology. 2017;284(1):228-243.
--- NOTE | 2022-07-01 05:57 | ECG_ITS ---
[facility] Test Date: 2022-07-01 Pat Name: Dominick Cifuentes Department: Room: [facility] Gender: Male Manager Voice: : 1945 Requested By: Mari Armstrong Order Number: [id number] Von MD: Ted Blood M.D. Measurements Intervals [place] Rate: 79 P: -3 CO: 232 QRS: -7 QRSD: 81 T: 2 QT: 386 QTc: 444 Interpretive Statements SINUS RHYTHM WITH FIRST DEGREE AV BLOCK VOLTAGE CRITERIA FOR LVH [MEETS CRITERIA IN ONE OF: R(aVL), S(V1), R(V5), R(V5/V6)+S(V1)] Compared to ECG 07/01/2022 00:06:27 First degree AV block now present Sinus tachycardia no longer present Myocardial infarct finding no longer present Electronically Signed On 07-01-2022 10:31:41 CDT by Ted Blood M.D. [id number]
[2022-07-01] MEDS: iohexol 350 mg/mL 500 mL Btl (per mL) IV (06:22)
--- NOTE | 2022-07-01 06:52 | USR_ITS ---
PROCEDURE INFORMATION: Exam: US Duplex Lower Extremity Veins, Bilateral Exam date and time: 07/01/2022 1:53 PM Age: 77 years old Clinical indication: Edema, localized; Lower extremity, bilateral; Additional info: Dvt TECHNIQUE: Imaging protocol: Real-time duplex ultrasound of the bilateral extremities with 2-D mathis scale, color Doppler flow and spectral waveform analysis including responses to compression and other maneuvers (when performed) with image documentation. Complete exam focused on the lower extremity veins. COMPARISON: No relevant prior studies available. FINDINGS: Right deep veins: The common femoral, femoral, proximal profunda femoral, popliteal, posterior tibial, and peroneal veins are patent without thrombus. Normal compressibility and/or augmentation response. Right superficial veins: Saphenofemoral junction is patent without thrombus. Left deep veins: The common femoral, femoral, proximal profunda femoral, popliteal, posterior tibial, and peroneal veins are patent without thrombus. Normal compressibility and/or augmentation response. Left superficial veins: Saphenofemoral junction is patent without thrombus. Soft tissues: Unremarkable as visualized. US/CV venous duplex [facility] [id number] IMPRESSION: No evidence for deep venous thrombosis in the right or left lower extremities.
--- NOTE | 2022-07-01 06:52 | USCV_ITS ---
Dominick Cifuentes Age: 77 Gender: M : 1945 Exam Date: 07/01/2022 13:29 Ordering Phys: Stephen Guillen MD Technologist: DESHAWN Exam Location: [facility] Indication: nstemi BP: / HR: 81 Rhythm: Sinus Technical Quality: Adequate MEASUREMENTS (Male / Female) Normal Values 2D ECHO LV Diastolic Diameter PLAX 5.2 cm 4.2 - 5.9 / 3.9 - 5.3 cm LV Systolic Diameter PLAX 4.5 cm IVS Diastolic Thickness 0.8 cm 0.6 - 1.0 / 0.6 - 0.9 cm IVS Systolic Thickness 0.9 cm LVPW Diastolic Thickness 0.8 cm 0.6 - 1.0 / 0.6 - 0.9 cm LVPW Systolic Thickness 1.4 cm LVOT Diameter 2.2 cm LV Ejection Fraction 2D Teich 28.9 % LV Ejection Fraction MOD 2C 22.0 % LV Ejection Fraction 2C AL 20.1 % LA Diameter 3.6 cm IVC Diameter 1.8 cm M-MODE Aortic Annulus Diameter 3.4 cm LA Ao Ratio MM 1.3 MV E Point Septal Separation 0.6 cm DOPPLER AV Peak Velocity 118.0 cm/s LVOT Peak Velocity 97.0 cm/s AV Area Cont Eq vti 3.1 cm squared AV Area Cont Eq pk 3.0 cm squared MV Area PHT 3.3 cm squared Mitral E to A Ratio 0.9 MV E' Velocity 47.0 cm/s Mitral E to MV E' Ratio 9.9 Mitral E to LV E' Lateral Ratio 9.8 Mitral E to LV E' Septal Ratio 10.0 TR Peak Velocity 217.0 cm/s TR Peak Gradient 18.8 mmHg TV Peak E Velocity 98.0 cm/s Right Atrial Pressure 3.0 mmHg Pulmonary Artery Systolic Pressu 21.8 mmHg PV Peak Velocity 119.0 cm/s FINDINGS Left Ventricle Normal left ventricular cavity size. Normal left ventricular wall thickness. Normal left ventricular systolic function. There is a very small area of the mid anterior wall which is dyskinetic. This may be a muscle defect as opposed to an infarcted segment. It is very small and does not affect the overall function of the ventricle. Grade 1 diastolic dysfunction. Estimated ejection fraction 55 to 60%. Right Ventricle Normal right ventricular size and systolic function. Normal right ventricular systolic pressure. Right Atrium The right atrium is normal in size. Left Atrium The left atrium is normal in size. Mitral Valve Structurally normal mitral valve without significant stenosis or prolapse. There is no mitral regurgitation. Aortic Valve Structurally normal aortic valve without significant sclerosis or stenosis. There is no aortic regurgitation. Tricuspid Valve Structurally normal tricuspid valve. Trace tricuspid valve regurgitation. Pulmonic Valve Pulmonic valve not well visualized. Pericardium Normal pericardium without effusion. Aorta Normal ascending aorta dimension. IVC The inferior vena cava appears normal. CONCLUSIONS Normal left ventricular cavity size. Normal left ventricular wall thickness. Normal left ventricular systolic function. There is a very small area of the mid anterior wall which is dyskinetic. This may be a muscle defect as opposed to an infarcted segment. It is very small and does not affect the overall function of the ventricle. Grade 1 diastolic dysfunction. Estimated ejection fraction 55 to 60%. There are no prior echocardiogram studies to compare. Dr. Ted Blood MD (Electronically Signed) Final Date: 02 Jul 2022 08:51 S
[2022-07-01] MEDS: pantoprazole 40 mg SDV IVP (07:26)
[2022-07-01] MEDS: piperacillin-tazobactam 3.375 GM in sodium chloride 0.9% (plus) 50 ML IV ×2 (07:28→14:36)
[2022-07-01 08:02] LABS: Glucose Point of Care 207 mg/dL (70-110)
[2022-07-01] MEDS: pregabalin 150 mg Capsule PO ×3 (08:10→21:36)
[2022-07-01] MEDS: fenofibrate 145 mg Tablet PO (08:10)
[2022-07-01] MEDS: buPROPion XL (24 HR) 150 mg Tablet 300 MG PO (08:10)
[2022-07-01] MEDS: memantine 5 mg tablet 10 MG PO ×2 (08:10→19:09)
[2022-07-01] MEDS: sertraline 100 mg Tablet PO (08:10)
[2022-07-01] MEDS: aspirin 325 mg Tablet PO (08:10)
[2022-07-01] MEDS: insulin lispro 100 unit/1 mL SUBCUT ×4 (08:11→21:55)
[2022-07-01] MEDS: insulin glargine 100 units/1 mL 10 UNIT SUBCUT ×2 (08:20→18:41)
[2022-07-01 08:29] LABS: Troponin 5 6HR Delta -14 ng/L (0-12)
[2022-07-01 09:37] LABS: Thyroid Stimulating Hormone 0.79 uIU/mL (0.27-4.20)
[2022-07-01 11:30] LABS: Partial Thromboplastin Time 55.5 SECONDS (23.9-36.7)
[2022-07-01 11:50] LABS: Glucose Point of Care 208 mg/dL (70-110)
[2022-07-01 13:09] LABS: Iron 33 ug/dL (59-158); Percent Saturation 21.7 % (20-50); Total Iron Binding Capacity 152 mcg/dl; Unsaturated Iron Binding 119 ug/dL (112-347)
[2022-07-01 13:23] LABS: Folate Level 14.4 ng/mL (4.5-32.2)
[2022-07-01 13:24] LABS: Vitamin B12 1168 pg/mL (232-1245)
[2022-07-01 16:32] LABS: Adenovirus Not Detected (NOT DETECT); Chlamydia Pneumoniae Not Detected (NOT DETECT); Coronavirus 229E,HKU1,NL63,OC4 Not Detected (NOT DETECT); Human Metapneumovirus Not Detected (NOT DETECT); Human Rhinovirus/Enterovirus Not Detected (NOT DETECT); Influenza A Not Detected (NOT DETECT); Influenza A H1 Not Detected (NOT DETECT); Influenza A H1-2009 Not Detected (NOT DETECT); Influenza A H3 Not Detected (NOT DETECT); Influenza B Not Detected (NOT DETECT); Mycoplasma Pneumoniae Not Detected (NOT DETECT); Parainfluenza Virus Type 1 Not Detected (NOT DETECT); Parainfluenza Virus Type 2 Not Detected (NOT DETECT); Parainfluenza Virus Type 3 Not Detected (NOT DETECT); Parainfluenza Virus Type 4 Not Detected (NOT DETECT); Respiratory Syncytial Virus A Not Detected (NOT DETECT); Respiratory Syncytial Virus B Not Detected (NOT DETECT); SARS-COV-2 Not Detected (NOT DETECT)
--- NOTE | 2022-07-01 16:45 | PC.NURSE ---
Transfer Note Patient transferred to CSU-106 from ICU via bed. Handoff report given to CALVIN Abdi. Patient oriented to environment and equipment. Covering service notified. Orders reviewed and will continue to monitor. Family notified. Patient has several wounds/skin issues noted, please see wound assessment for detail. Patient is alert to person and place upon transfer. Heparin and Zosyn infusing per order/protocol please see MAR for details. No complaints of pain at this time.
[2022-07-01 17:45] LABS: Glucose Point of Care 204 mg/dL (70-110)
[2022-07-01 18:44] LABS: Partial Thromboplastin Time 179.2 SECONDS (23.9-36.7)
[2022-07-01] MEDS: sodium chloride 0.9% 1,000 ML 75 ML IV (21:36)
[2022-07-01] MEDS: atorvastatin 40 mg Tablet PO (21:36)
[2022-07-01 21:51] LABS: Glucose Point of Care 223 mg/dL (70-110)
--- NOTE | 2022-07-01 23:53 | PC.NURSE ---
Heparin restarted Heparin drip has been paused due to increased ptt in 179.2 at 1900 per Hospitalist to hold for 4hrs. Notified hospitalist on the result of PTT after 4 hrs w/c i 29.0- received voalte message back to restart the drip on same rate previously. Heparin drip restarted at 23 cc/hr.
[2022-07-02] VITALS (16 sets, daily range): BP systolic 119–148; BP diastolic 60–87; PULSE 76–92; RESP 15–19; TEMP 36.7–36.9; O2SAT 92–96
[2022-07-02] MEDS: piperacillin-tazobactam 3.375 GM in sodium chloride 0.9% (plus) 50 ML IV ×4 (00:11→23:25)
[2022-07-02] MEDS: HYDROcodone-acetaminophen 5-325 mg Tablet 1 TAB PO ×4 (02:05→23:30)
[2022-07-02] MEDS: pantoprazole 40 mg SDV IVP (05:58)
[2022-07-02 06:10] LABS: Basophils % 0.4 %; Eosinophils # 0.1 10^3/uL (0.0-0.8); Eosinophils % 1.5 %; Hemoglobin 11.7 g/dL (11.7-16.6); Lymphocytes # 1.5 10^3/uL (0.8-4.8); Lymphocytes % 21.7 %; Mean Corpuscular HGB Conc 30.8 g/dL (30.0-36.0); Mean Corpuscular Hemoglobin 27.1 pg (28.0-34.0); Mean Corpuscular Volume 88.2 fl (80-94); Mean Platelet Volume 10.4 fL (7.4-10.4); Monocytes # 0.4 10^3/uL (0.2-0.9); Monocytes % 5.4 %; Neutrophils # 4.72 10^3/uL (1.8-7.7); Neutrophils % 70.7 %; Nucleated Red Blood Cells % 0 %; Platelet Count 177 10^3/cmm (130-400); Red Blood Count 4.31 10^6/uL (4.1-5.3); Red Cell Distribution Width 12.7 % (12.1-15.1); White Blood Count 6.7 10^3/uL (4.0-10.0)
[2022-07-02 06:17] LABS: Glucose Point of Care 133 mg/dL (70-110)
[2022-07-02 06:18] LABS: Partial Thromboplastin Time 38.5 SECONDS (23.9-36.7)
[2022-07-02 06:25] LABS: Alanine Aminotransferase 11 U/L (0-41); Albumin Level 2.4 g/dL (3.5-5.2); Alkaline Phosphatase 124 U/L (40-130); Anion Gap 14.5 (5-19); Aspartate Amino Transferase 12 U/L (0-40); Blood Urea Nitrogen 18 mg/dL (8-23); Calcium 8.4 mg/dL (8.5-10.5); Carbon Dioxide 22 mmol/L (22-29); Chloride 103 mmol/L (98-107); Cholesterol 89 mg/dL (0-200); Globulin 3.7 g/dL (1.3-4.6); Glucose 108 mg/dL (65-115); HDL Cholesterol 33 mg/dL (60-100); LDL Cholesterol Calculated 31 mg/dL (50-129); Osmolality Calculated 284 mOsm/kg (285-295); Potassium 3.5 mmol/L (3.5-5.1); Sodium 136 mmol/L (136-145); Total Bilirubin 0.2 mg/dL (0.15-1.2); Total Protein 6.1 g/dL (6.6-8.7); Triglycerides 124 mg/dL (0-150); VLDL Cholestrol Calculation 25 mg/dL (0-30)
[2022-07-02 06:39] LABS: Estmated Average Glucose 223; Hemoglobin A1C 9.4 % (4.0-6.0)
[2022-07-02] MEDS: heparin 5,000 unit/mL INJ 1 mL IV (06:45)
[2022-07-02] MEDS: heparin drip 25,000 UNIT/500 ML PREMIX 26 UNIT IV (06:49)
[2022-07-02] MEDS: insulin glargine 100 units/1 mL 10 UNIT SUBCUT ×2 (08:17→17:28)
[2022-07-02] MEDS: sertraline 100 mg Tablet PO (08:17)
[2022-07-02] MEDS: fenofibrate 145 mg Tablet PO (08:17)
[2022-07-02] MEDS: buPROPion XL (24 HR) 150 mg Tablet 300 MG PO (08:17)
[2022-07-02] MEDS: memantine 5 mg tablet 10 MG PO ×2 (08:17→17:29)
[2022-07-02] MEDS: pregabalin 150 mg Capsule PO ×3 (08:17→20:53)
[2022-07-02] MEDS: aspirin 325 mg Tablet PO (08:17)
[2022-07-02 08:56] LABS: Troponin T (5th) Once 74 ng/L (0-15)
--- NOTE | 2022-07-02 10:31 | PC.CHAP ---
Pastoral Care Encounter/Spiritual Assessment Type of Contact [] Declined chief of surgery visit [] Patient/Family/Request visit [] Outpatient visit [] Follow-up visit [] Physician referral [] Code/Alert [x] Routine visit [] Staff referral [] Actively dying [] Patient sleeping [] Family support [] [] Out of room [] Palliative care [] [] Receiving care in room [] Pre-surgical visit [] Trauma [] Long length of stay [] ICU visit [] Other: Relational/Emotional Strength [] Patient feels connected with others/family/visitors/staff [] Distress [] Loneliness/isolation [] Abandonment Spirituality of Patient [] Person of Yara [] Attends Gnosticism of their Yara [] Believes in Prayer [] Reads Bible or Latter Day materials [] There are Spiritual issues to be addressed Medication Specialist Interventions [x] Prayer [] Active listening [] Non-anxious presence [] Spiritual/emotional support [] Crisis/trauma care [] Spiritual counseling [] Bereavement support [] Provided bereavement packet [] Provided Bible/devotional materials [] Provided toy/stuffed animal, coloring book to patient or family member [] Provided Communion [] Anointing/[place] [] Salvation [] Completed spiritual assessment [] Other: Impact on Illness or Injury [] Angry [] Fearful [] Anxious [] Often cries [] Exhaustion [] Unable to work [] Unable to attend nondenominational [] Unable to walk/stand [] Unable to read [] Unable to drive [] Unable to eat/drink [] Unable to sleep [] Unable to be with family [] Patient intubated [] Other: Summary Time spent with patient 5min
--- NOTE | 2022-07-02 10:55 | PM.PN ---
Subjective Subjective: No acute events overnight. Patient has remained hemodynamically stable and afebrile. Continues to remain on heparin drip. Denies any nausea, vomiting, headache. Laying comfortably in bed. States he is aware of the hip fracture from previous admission. States he thinks he was asked not to bear weight. He states he thinks he needs to be on antibiotics but for water and for how long he is not aware of. Currently denies any chest pains. Vitals/I&O/Wt Last Vital Signs Temp 98.5 F 07/02/22 07:34 Pulse 88 07/02/22 09:50 Resp 17 07/02/22 07:34 BP 138/75 07/02/22 07:34 Pulse Ox 94 07/02/22 09:50 O2 Del Method Room Air 07/02/22 09:50 07/01/22 07/02/22 07/02/22 22:59 06:59 14:59 Intake Total 322.233 / 1038.483 214.067 / 1252.550 111.433 / 111.433 Output Total 2626 / 5076 1100 / 6176 Balance -2303.767 / -4037.517 -885.933 / -4923.450 111.433 / 111.433 Weight last 48 hrs Weight 83.915 kg Weight 90.718 kg Physical Exam Const: COMMON NORMALS: no acute distress and patient oriented x3 GENERAL APPEARANCE: cooperative, well kempt and well developed ORIENTATION/CONSCIOUSNESS: Yes awake, Yes oriented to person and Yes oriented to place; not oriented to time HENMT: COMMON NORMALS: normocephalic HEAD & SCALP: normocephalic Eye: COMMON NORMALS: Equal, round and reactive pupils present, EOMs intact bilaterally, conjunctivae normal and no scleral icterus CONJUNCTIVA: Yes conjunctivae normal PUPIL: Yes Equal, round and reactive pupils present Neck/C-Spine: COMMON NORMALS: full ROM, no lymphadenopathy, no meningeal signs, no JVD, Thyroid normal and No carotid bruits THYROID: Thyroid normal Lymph: LYMPHATIC: no lymphadenopathy noted Chest: COMMONS NORMALS: normal inspection of the chest Resp: COMMON NORMALS: normal respiratory effort, No retractions, No use of accessory muscles and clear to auscultation bilaterally AUSCULTATION: clear to auscultation bilaterally Cardio: COMMON NORMALS: no JVD, regular rate, regular rhythm, S1 normal heart sound present, S2 normal heart sound present, No murmurs present (Cardio) and Peripheral pulses 2+ throughout RATE: regular rate RHYTHM: regular rhythm HEART SOUNDS: S1 normal heart sound present and S2 normal heart sound present PERIPHERAL PULSES: Peripheral pulses 2+ throughout GI: COMMON NORMALS: Normal to inspection, nondistended, normoactive bowel sounds present, Soft to palpation, non-tender and No hepatosplenomegaly present PALPATION: Yes Soft to palpation and Yes No hepatosplenomegaly present : COMMON NORMALS: Yes no CVA tenderness BLADDER/KIDNEY EXAM: Yes no CVA tenderness Back/Pelvis: COMMON NORMALS: no CVA tenderness Extremity: COMMON NORMALS: normal to inspection, full ROM and no pedal edema NARRATIVE EXTREMITY EXAM: Left knee and left thigh swelling, he tells me that is chronically swollen Neuro: COMMON NORMALS: patient oriented x3, CN's II-XII intact bilaterally, moves all extremities, no focal motor deficits and no sensory deficits noted SENSORIUM/ORIENTATION: Yes oriented to person, Yes oriented to place and No oriented to time MENINGEAL SIGNS: Yes no meningeal signs Psych: COMMON NORMALS: Normal thought process present, cooperative and speech normal APPEARANCE: Yes well kempt SPEECH: Yes normal speech THOUGHT PROCESS: Normal thought process present Skin: COMMON NORMALS: turgor normal and no jaundice GENERAL SKIN EXAM: turgor normal Data 07/02/22 05:37 07/02/22 05:37 Micro: Microbiology 07/01/22 00:22 Urine Culture - Preliminary Urine,Clean Catch 07/01/22 02:42 Blood Culture - Preliminary Blood NEGATIVE TO DATE 07/01/22 02:42 Blood Culture - Preliminary Blood NEGATIVE TO DATE A&P Assessment and plan (1) Shock: (2) Sepsis: Qualifiers: Sepsis type: Escherichia coli (3) UTI (urinary tract infection): Qualifiers: Urinary tract infection type: acute cystitis (4) Elevated troponin: (5) Coronary artery disease involving coronary bypass graft of [place] heart: (6) Hypertension: Qualifiers: Hypertension type: essential hypertension Qualified Code(s): I10 - Essential (primary) hypertension (7) Pubic ramus fracture: Plan Septic shock: Present on admission. Resolved now. Currently bert maintained over 65. Likely source UTI. UTI/possible pyelonephritis: Appreciate CT abdomen pelvis result. Patient was recently at [facility] and was treated and discharged on IV antibiotics. Not sure of the reason, duration or the culture results. Awaiting paperwork from the hospital. Will review and decide accordingly. Follow-up blood culture and urine culture sent currently. For now continue with Zosyn. Post CABG: Elevated troponin: Denies any active chest pain currently. Troponin cycle trended negative but still elevated. Echocardiogram awaited. For now continue with heparin drip. If echocardiogram not showing significant regional wall motion abnormality we will stop heparin drip and switch to home dose of Eliquis. Appreciate A1c, lipid panel. Continue with aspirin, statin. Hypertension: Goal blood pressure less than 140/90 mmHg with mean over 65. Holding off on antihypertensive now given low blood pressures in shock yesterday. We will continue to monitor and start medications accordingly. Type 2 diabetes mellitus: Insulin sliding scale. Follow A1c. Lantus 10 units twice daily. Left superior and inferior suprapubic rami fracture: We will consult orthopedics for further recommendations. Weightbearing as per orthopedics. PT evaluation. For now heparin drip will suffice as DVT prophylaxis if stopping heparin drip will switch to home dose of oral Eliquis. Carb consistent cardiac diet. Protonix for DVT prophylaxis. CODE STATUS patient is a DO NOT RESUSCITATE, but is okay with intubation, okay with ICU admission Attestations Medical Necessity Statement*: Requires further hospitalization for management of severe sepsis with low blood pressures in a patient who was recently discharged from outside hospital on IV antibiotic course, suprapubic rami fracture Diagnoses Shock R57.9 Sepsis A41.9 Sepsis type: Escherichia coli UTI (urinary tract infection) N39.0 Urinary tract infection type: acute cystitis Elevated troponin R77.8 Coronary artery disease involving coronary bypass graft of [place] heart I25.810 Hypertension I10 Hypertension type: essential hypertension Pubic ramus fracture S32.599A
[2022-07-02 11:45] LABS: Glucose Point of Care 263 mg/dL (70-110)
[2022-07-02] MEDS: insulin lispro 100 unit/1 mL SUBCUT ×3 (12:52→22:06)
--- NOTE | 2022-07-02 15:02 | P.CONIM_ITS ---
Providers/Reason For Consult Consulting Physician/Specialty*: Emerson Rodríguez MD; orthopedic surgery Reason for Consult*: Pelvic fracture Attending Physician: Ras Lind MD Primary Care Provider: Geoff Reno MD History of Present Illness History of Present Illness Dominick Cifuentes is a 77 year old male admitted yesterday after a fall with worsening back pain. According to emergency room records the patient initially presented with chest pain in the emergency room however is denied that since admission. He describes some pain in his left knee denies pain in his pelvis at this time Medications/Allergies Home Medications Medication Instructions Recorded Confirmed Last Taken Type nitroglycerin 0.4 mg sublingual 0.4 mg sublingual Q5M PRN Chest 03/23/19 07/01/22 01/25/22 History tablet Pain aspirin 325 mg tablet 325 mg PO DAILY 07/23/19 07/01/22 01/25/22 History Power wheel chair #1 ea 07/22/20 07/01/22 01/25/22 Rx ondansetron 8 mg disintegrating 8 mg PO Q8H PRN nausea and 05/10/21 07/01/22 01/25/22 Rx tablet vomiting #9 tabs bupropion HCl 150 mg 24 hr tablet, See Rx Instructions .Route 08/01/21 07/01/22 01/25/22 Rx extended release .COMPLEX #240 tabs empagliflozin 25 mg tablet See Rx Instructions .Route 08/01/21 07/01/22 01/25/22 Rx (Jardiance) .COMPLEX #90 tabs famotidine 40 mg tablet See Rx Instructions .Route 08/01/21 07/01/22 01/25/22 Rx .COMPLEX #180 tabs fenofibrate nanocrystallized 145 See Rx Instructions .Route 08/01/21 07/01/22 01/25/22 Rx mg tablet .COMPLEX #90 tabs insulin regular human 100 unit/mL See Rx Instructions .Route 08/01/21 07/01/22 01/25/22 Rx injection solution (Novolin R .COMPLEX #30 mL Regular U-100 Insulin) insulin syringe-needle U-100 1 mL #200 ea 08/01/21 07/01/22 01/25/22 Rx 31 gauge x 5/16 ([facility] [employer]) memantine 10 mg tablet (Namenda) 10 mg PO BID #180 tabs 08/01/21 07/01/22 01/25/22 Rx nitroglycerin 6.5 mg 6.5 mg PO BID #180 caps 08/01/21 07/01/22 01/25/22 Rx capsule,extended release pen needle, diabetic 31 gauge x #200 ea 08/01/21 07/01/22 01/25/22 Rx 3/16 (Sure Comfort Pen Needle) pregabalin 150 mg capsule (Lyrica) 150 mg PO TID #270 caps 08/01/21 07/01/22 01/25/22 Rx sertraline 100 mg tablet See Rx Instructions .Route 08/01/21 07/01/22 01/25/22 Rx .COMPLEX #90 tabs carisoprodol 350 mg tablet 350 mg PO TID #90 tabs 10/24/21 07/01/22 01/25/22 Rx dulaglutide 0.75 mg/0.5 mL 0.75 mg (0.5 mL) SUBCUT .weekly #2 12/18/21 07/01/22 01/25/22 Rx subcutaneous [facility] ezetimibe 10 mg tablet See Rx Instructions .Route 04/04/22 07/01/22 Unknown Rx .COMPLEX #90 tabs lisinopril 20 See Rx Instructions .Route 05/15/22 07/01/22 Unknown Rx mg-hydrochlorothiazide 12.5 mg .COMPLEX #90 tabs tablet diltiazem HCl 240 mg capsule,24 240 mg PO DAILY #90 caps 05/28/22 07/01/22 Unknown Rx hr,extended release ergocalciferol (vitamin D2) 1,250 See Rx Instructions .Route 05/28/22 07/01/22 Unknown Rx mcg (50,000 unit) capsule .COMPLEX #16 caps insulin syringe-needle U-100 1 mL #100 ea 05/28/22 07/01/22 Unknown Rx 31 gauge x 5/16 (BD Insulin Syringe Ultra-Fine) alprazolam 0.5 mg tablet 0.5 mg PO BID #60 tabs 06/01/22 07/01/22 Unknown Rx hydrocodone 5 mg-acetaminophen 325 1 tab PO Q6H 20 days #80 tabs 06/22/22 07/01/22 Unknown Rx mg tablet apixaban 5 mg tablet (Eliquis) 5 mg PO BID 07/01/22 07/01/22 Unknown History atenolol 100 mg tablet 100 mg PO DAILY 07/01/22 07/01/22 Unknown History atorvastatin 20 mg tablet 20 mg PO DAILY 07/01/22 07/01/22 Unknown History dulaglutide 1.5 mg/0.5 mL 1.5 mg SUBCUT DIRECTED 07/01/22 07/01/22 06/24/22 07:00 History subcutaneous pen injector (Trulicity) insulin glargine 100 unit/mL (3 See Rx Instructions .Route .COMPLEX 07/01/22 07/01/22 Unknown History mL) subcutaneous pen (Lantus Solostar U-100 Insulin) mirabegron 50 mg tablet,extended 50 mg PO DAILY 07/01/22 07/01/22 Unknown History release 24 hr (Myrbetriq) Allergies Allergy/AdvReac Type Severity Reaction Status Date / Time adhesive Allergy Unknown Verified 04/19/22 16:39 amitriptyline Allergy ALGY-Hives Verified 04/19/22 16:39 cefaclor [From [facility]] Allergy ALGY-Hives Verified 04/19/22 16:39 Current Medications Generic Name Dose Route Start Last Admin Trade Name Freq PRN Reason Stop Dose Admin Hydrocodone Bitart/Acetaminophen 1 tab 07/01/22 06:52 07/02/22 08:23 Hydrocodone-Acetaminophen 5-325 Mg Tablet PO 1 tab Q6H PRN Administration back pain Aspirin 325 mg 07/01/22 09:00 07/02/22 08:17 Aspirin 325 Mg Tablet PO 325 mg DAILY DERREK Administration Atorvastatin Calcium 40 mg 07/01/22 21:00 07/01/22 21:36 Atorvastatin 40 Mg Tablet PO 40 mg BEDTIME DERREK Administration Bupropion HCl 300 mg 07/01/22 09:00 07/02/22 08:17 Bupropion Xl (24 Hr) 150 Mg Tablet PO 300 mg DAILY DERREK Administration Carisoprodol 350 mg 07/01/22 06:52 07/02/22 11:24 Carisoprodol 350 Mg Tablet PO 350 mg TID PRN Administration back pain Fenofibrate 145 mg 07/01/22 09:00 07/02/22 08:17 Fenofibrate 145 Mg Tablet PO 145 mg DAILY DERREK Administration Sodium Chloride 1,000 mls @ 75 mls/hr 07/01/22 02:45 07/02/22 12:08 Sodium Chloride 0.9% IV Infused .[id number] DERREK Infusion Piperacillin Sod/Tazobactam 50 mls @ 12.5 mls/hr 07/01/22 07:30 07/02/22 11:30 Sod 3.375 gm/ Sodium Chloride IV Infused Q8H DERREK Infusion Protocol Insulin Glargine 10 unit 07/01/22 18:00 07/02/22 08:17 Insulin Glargine 100 Units/1 Ml SUBCUT 10 unit BID DERREK Administration Insulin Human Lispro 0 unit 07/01/22 08:00 07/02/22 12:52 Insulin Lispro 100 Unit/1 Ml SUBCUT 12 unit WM&BEDTIME DERREK Administration Protocol Memantine 10 mg 07/01/22 09:00 07/02/22 08:17 Memantine 5 Mg Tablet PO 10 mg BID DERREK Administration Non-Formulary Medication 50 mg 07/02/22 09:00 07/02/22 08:14 Mirabegron [Myrbetriq] PO Not Given DAILY DERREK Pantoprazole Sodium 40 mg 07/01/22 06:52 07/02/22 05:58 Pantoprazole 40 Mg Sdv IVP 40 mg Q24H DERREK Administration Pregabalin 150 mg 07/01/22 09:00 07/02/22 08:17 Pregabalin 150 Mg Capsule PO 150 mg TID DERREK Administration Sertraline HCl 100 mg 07/01/22 09:00 07/02/22 08:17 Sertraline 100 Mg Tablet PO 100 mg DAILY DERREK Administration PFSH Acute PFSH: Medical History (Updated 07/02/22 @ 15:07 by Emerson Rodríguez MD) Back pain with history of spinal surgery Chronic back pain Coronary artery disease involving coronary bypass graft of [place] heart 2019 Diabetes Labs in 3 months. Increase lantus by 10 units. Former smoker Hypertension Sepsis 2019 Urinary retention Surgical History H/O angioplasty 1992 H/O spinal fusion 1999, 2012 History of prostate surgery 2005 Hx of appendectomy 1987 Knee joint replacement status Bilateral Stented coronary artery 1997 Family History Denies family history of CAD (coronary artery disease) Chronic kidney disease (CKD) Cancer Social History Smoking and tobacco status: former smoker Alcohol intake: never Substance/Drug Use: never Adopted: No Household members: spouse Housing: House Marital status: Number of children: 4 Number of grandchildren: 4 Highest education level completed: Associate Degree: Occupational, Technical, Vocational Program service: Yes status: Retired branch: [employer] Current occupational status: disabled Pets and animals: Yes Current gender identity: Male Vitals/I&O/Wt Last Vital Signs Temp 98.0 F 07/02/22 12:00 Pulse 81 07/02/22 12:00 Resp 19 H 07/02/22 12:00 BP 139/76 07/02/22 12:00 Pulse Ox 96 07/02/22 12:00 O2 Del Method Room Air 07/02/22 09:50 07/02/22 07/02/22 07/02/22 06:59 14:59 22:59 Intake Total 214.067 / 4777.546 2901.433 / 1401.433 Output Total 1100 / 6176 Balance -885.933 / -4923.450 1401.433 / 1401.433 Weight last 48 hrs Weight 185 lb Weight 200 lb Physical Exam Narrative: The patient is supine in bed in no apparent distress. He answers questions appropriately but denies any history of falls. There is no swelling ecchymoses or tenderness over his pubic ramus He has no pain with open book or pelvic compression. He has some swelling about his left knee but no effusion. Knee motion is from full extension to 110 degrees. His patella tracks well. Collateral liigaments are stable. Data 07/02/22 05:37 07/02/22 05:37 Micro: Microbiology 07/01/22 00:22 Urine Culture - Preliminary Urine,Clean Catch 07/01/22 02:42 Blood Culture - Preliminary Blood NEGATIVE TO DATE 07/01/22 02:42 Blood Culture - Preliminary Blood NEGATIVE TO DATE Other data: I reviewed his CT scan of the pelvis dated 07/01/2022. The patient appears have a fracture of his left superior and inferior pubic rami near the symphysis pubis. There is some diastases and calcifications of the symphysis pubis. No posterior sacroiliac joint widening is identified A&P Assessment and plan (1) Fracture, pelvis closed: Dominick has nondisplaced left pubic rami fractures. He is not tender there is no posterior ligamentous disruption suggested on CT scan. This should be a stable injury. I will allow him to weight-bear as tolerated. I will follow-up with him in a month with x-rays. Coding Level of Care Code Acute Code for [facility] Diagnoses Fracture, pelvis closed S32.9XXA
[2022-07-02 16:17] LABS: Glucose Point of Care 219 mg/dL (70-110)
[2022-07-02] MEDS: apixaban 5 mg Tablet PO (17:29)
[2022-07-02] MEDS: atorvastatin 40 mg Tablet PO (20:53)
[2022-07-02 21:04] LABS: Glucose Point of Care 189 mg/dL (70-110)
[2022-07-02] MEDS: sodium chloride 0.9% 1,000 ML 75 ML IV (23:26)
[2022-07-03] VITALS (10 sets, daily range): BP systolic 133–157; BP diastolic 75–87; PULSE 78–87; RESP 16–22; TEMP 36.9–37.1; O2SAT 94–98
[2022-07-03 04:42] LABS: Basophils % 0.3 %; Eosinophils # 0.1 10^3/uL (0.0-0.8); Eosinophils % 1.7 %; Hematocrit 37.6 % (42.0-52.0); Hemoglobin 11.9 g/dL (11.7-16.6); Lymphocytes # 1.9 10^3/uL (0.8-4.8); Lymphocytes % 26.5 %; Mean Corpuscular HGB Conc 31.6 g/dL (30.0-36.0); Mean Corpuscular Hemoglobin 26.7 pg (28.0-34.0); Mean Corpuscular Volume 84.5 fl (80-94); Mean Platelet Volume 10.7 fL (7.4-10.4); Monocytes # 0.5 10^3/uL (0.2-0.9); Monocytes % 7.2 %; Neutrophils # 4.54 10^3/uL (1.8-7.7); Nucleated Red Blood Cells % 0 %; Platelet Count 190 10^3/cmm (130-400); Red Blood Count 4.45 10^6/uL (4.1-5.3); Red Cell Distribution Width 12.7 % (12.1-15.1); White Blood Count 7.1 10^3/uL (4.0-10.0)
[2022-07-03 05:13] LABS: Alanine Aminotransferase 10 U/L (0-41); Albumin Level 2.7 g/dL (3.5-5.2); Alkaline Phosphatase 125 U/L (40-130); Anion Gap 12.8 (5-19); Aspartate Amino Transferase 11 U/L (0-40); Blood Urea Nitrogen 15 mg/dL (8-23); Calcium 8.7 mg/dL (8.5-10.5); Carbon Dioxide 25 mmol/L (22-29); Chloride 104 mmol/L (98-107); Globulin 3.9 g/dL (1.3-4.6); Glucose 218 mg/dL (65-115); Osmolality Calculated 293 mOsm/kg (285-295); Potassium 3.8 mmol/L (3.5-5.1); Sodium 138 mmol/L (136-145); Total Bilirubin 0.2 mg/dL (0.15-1.2); Total Protein 6.6 g/dL (6.6-8.7)
[2022-07-03] MEDS: piperacillin-tazobactam 3.375 GM in sodium chloride 0.9% (plus) 50 ML IV ×3 (06:26→23:17)
[2022-07-03] MEDS: pantoprazole 40 mg SDV IVP (06:26)
[2022-07-03 06:38] LABS: Glucose Point of Care 170 mg/dL (70-110)
[2022-07-03] MEDS: insulin lispro 100 unit/1 mL SUBCUT ×4 (07:35→21:02)
[2022-07-03] MEDS: insulin glargine 100 units/1 mL 10 UNIT SUBCUT ×2 (08:48→17:14)
[2022-07-03] MEDS: buPROPion XL (24 HR) 150 mg Tablet 300 MG PO (08:49)
[2022-07-03] MEDS: aspirin 325 mg Tablet PO (08:49)
[2022-07-03] MEDS: pregabalin 150 mg Capsule PO ×3 (08:49→21:02)
[2022-07-03] MEDS: apixaban 5 mg Tablet PO ×2 (08:49→17:14)
[2022-07-03] MEDS: sertraline 100 mg Tablet PO (08:49)
[2022-07-03] MEDS: fenofibrate 145 mg Tablet PO (08:49)
[2022-07-03] MEDS: memantine 5 mg tablet 10 MG PO ×2 (08:49→17:14)
--- NOTE | 2022-07-03 10:29 | P.PN_ITS ---
Subjective Subjective: Patient is awake and alert. He reports he is feeling better today, however his knee continues to hurt. Denies any chest pain. Denies fevers, chills, nausea, or emesis. Patient reportedly continues to have intermittent confusion. Medications: Reviewed: Yes Vitals/I&O/Wt Last Vital Signs Temp 98.5 F 07/03/22 08:00 Pulse 83 07/03/22 10:07 Resp 16 07/03/22 08:00 BP 157/82 07/03/22 08:00 Pulse Ox 98 07/03/22 10:07 O2 Del Method Room Air 07/03/22 10:07 07/02/22 07/03/22 07/03/22 22:59 06:59 14:59 Intake Total 650 / 2051.433 530 / 2581.433 354 / 354 Output Total 5090 / 5090 400 / 5490 1000 / 1000 Balance -4440 / -3038.567 130 / -2908.567 -646 / -646 Physical Exam Narrative: General: Patient is awake. Alert. Head: Normocephalic. Atraumatic. EOM intact. Neck: No JVD. Cardiovascular: RRR. No gallops. No murmurs. Hypertensive. Lungs: Clear to auscultation, no use of accessory muscles, no crackles or wheezes. Skin: No jaundice. No rashes. Abdomen: Normal bowel sounds, abdomen soft and nontender. Genito Urinary: Genital exam not performed since complaints not related. Rectal: Rectal exam not performed since no symptoms indicated blood loss. Extremities: No cyanosis or clubbing. Musculoskeletal: Left knee swollen. TTP. Neurological: Moves all 4 extremities. No myoclonus. Data 07/03/22 04:14 07/03/22 04:14 Micro: Microbiology 07/01/22 00:22 Urine Culture - Final Urine,Clean Catch 07/01/22 12:35 MRSA Culture - Final Nose A&P Assessment and plan (1) UTI (urinary tract infection): Outside records reviewed, ID @ [facility] recommended ceftriaxone x3 weeks Recent infected cyst s/p drainage at [facility], drain since removed Admission cultures remain NG Continue Zosyn Stop IV fluids Qualifiers: Urinary tract infection type: acute cystitis (2) Elevated troponin: Associated with CAD w/ hx of CABG Patient is poor historian, now denies chest pain TTE reviewed, small dyskinetic area noted EKG reviewed Continue telemetry Continue home apixaban Continue atorvastatin Continue aspirin, may benefit from dosage change to 81 mg Home cardizem and atenolol have been held Consult cardiology for appropriate work up, d/w Dr. Vides (3) Knee pain: Prior imaging at [facility] reviewed, notable for large joint effusion Concern for infection in the setting of recent bacteremia XR plain films ordered May need to discuss w/ ortho pending above results (4) Pubic ramus fracture: Orthopedics consulted, appreciate recommendations WBAT (5) Dementia: High risk for derlirum Continue Namenda Plan for outpatient referral to Dr Mayen at discharge (6) Diabetic peripheral neuropathy associated with type 2 diabetes mellitus: Continus Lantus 10 units BID SSI Avoid hypoglycemia Continue Lyrica (7) Anxiety and depression: Continue Xanax PRN Continue sertraline Continue wellbutrin (8) Gastroesophageal reflux disease: Continue PPI Qualifiers: Esophagitis presence: esophagitis presence not specified Qualified Code(s): K21.9 - Gastro-esophageal reflux disease without esophagitis (9) Hypertension: Blood pressure increasing as sepsis improves Home atenolol, cardizem, HCTZ, and lisinopril on hold Restart home antihypertensives as blood pressure improves Qualifiers: Hypertension type: essential hypertension Qualified Code(s): I10 - Ess ential (primary) hypertension (10) Back pain with history of spinal surgery: Continue home Soma, would probably benefit from weaning to alternative agent as outpatient (11) Septic shock: Resolved Abx as above Plan DVT ppx: Apixaban Code Status: DNR. OK w/ Intubation. Attestations Medical Necessity Statement*: Patient requires ongoing hospitalization for IV abx, telemetry, cardiology evaluation, further imaging, serial labs, and supportive care. Coding Level of Care Code Acute Code for [facility] Diagnoses UTI (urinary tract infection) N39.0 Urinary tract infection type: acute cystitis Elevated troponin R77.8 Knee pain M25.569 Pubic ramus fracture S32.599A Dementia F03.90 Diabetic peripheral neuropathy associated with type 2 diabetes mellitus E11.42 Anxiety and depression F41.9; F32.9 Gastroesophageal reflux disease K21.9 Esophagitis presence: esophagitis presence not specified Hypertension I10 Hypertension type: essential hypertension Back pain with history of spinal surgery M54.9 Septic shock A41.9; R65.21
[2022-07-03] MEDS: HYDROcodone-acetaminophen 5-325 mg Tablet 1 TAB PO (10:37)
--- NOTE | 2022-07-03 11:41 | XRR_ITS ---
PROCEDURE INFORMATION: Exam: XR Left Knee Exam date and time: 07/03/2022 11:51 AM Age: 77 years old Clinical indication: Swelling or effusion of joint; Knee; Additional info: Evaluate for joint effusion, persistent joint pain, swelling, recent bacteremia TECHNIQUE: Imaging protocol: Radiologic exam of the left knee. Views: 3 views. COMPARISON: None FINDINGS: Bones/joints: Anatomic alignment of left knee arthroplasty. Prominent joint effusion, along with intra-articular calcifications. Soft tissues: Mild soft tissue swelling. Vasculature: Vascular calcification. XR/XR knee LT 3V* [id number] IMPRESSION: Prominent joint effusion, along with intra-articular calcifications.
[2022-07-03 12:55] LABS: Glucose Point of Care 388 mg/dL (70-110)
[2022-07-03 17:10] LABS: Glucose Point of Care 178 mg/dL (70-110)
--- NOTE | 2022-07-03 17:55 | PM.CONSULT ---
Providers/Reason For Consult Consulting Physician/Specialty*: SOLEDAD Vides MD/cardiology Reason for Consult*: Patient with chest pain, elevated troponin T, abnormal echocardiogram Requesting Physician: Dr. Thomas Attending Physician: Branden Thomas MD Primary Care Provider: Geoff Reno MD History of Present Illness History of Present Illness Dominick Cifuentes is a 77 year old male with a history of atherosclerotic heart disease, status post 5 vessel coronary artery bypass surgery, he is admitted to the hospital with complaints of chest pain and features of her urosepsis. He was found to have an elevated troponin T. Cardiology consult is requested for further cardiac evaluation recommendations. This patient is a very poor historian. Apparently he does not recall the reasons for coming to the hospital. According to his , he was complaining of chest pain. The chest pain is more or less sudden onset and in the midsternal area. He was found to be uncomfortable with the pain. So the ambulance was called in. In the emergency room, patient was not having any chest pain. He was mainly complaining of left knee pain and chronic back pain. He was found to have possible septic shock. He was started on IV antibiotics. Currently he seems to be fairly stable with a normal blood pressure. This patient was recently admitted to the hospital in [place] following a fall at home. He sustained pelvic fracture. He was advised for bedrest. He was placed on indwelling Payne's catheter. He was also treated with IV antibiotics. He denies any unusual shortness of breath. No fever, chills or cough. Patient had a 5 vessel coronary bypass surgery in 2019 at [facility]. 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 Apparently he was told that his cardiac status is okay during the last office visit. He had extensive back surgeries -total of 4 in the past. He has chronic back pain. He has been having difficulty in controlling the bladder ever since his open heart surgery?. His both parents had heart problems in their 70s. No other relevant family history. He used to smoke a pack a day for 30 years or so. He quit smoking in the 80s. No alcohol abuse or any other substance abuse. Review of Systems Narrative: CONSTITUTIONAL: No fever or chills. EYES: No blurring of vision or other visual disturbances lately. ENT: No hoarseness of voice, auditory disturbances or sore throat. CARDIOVASCULAR: As mentioned above. RESPIRATORY: No significant cough. GASTROINTESTINAL: No hematemesis or melena. GENITOURINARY: History of recurrent UTI and incontinence INTEGUMENTARY: No skin rashes or history of skin cancer. NEURO: No transient ischemic attacks or amaurosis. PSYCHIATRIC: No history of psychosis or major depression. HEMATOLOGIC: No bleeding disorders or significant anemia. ENDOCRINE: No history of polyuria or polydipsia. MUSCULOSKELETAL: Chronic back pain, left knee pain ALLERGY/IMMUNOLOGY: As mentioned above. Medications/Allergies Home Medications Medication Instructions Recorded Confirmed Last Taken Type nitroglycerin 0.4 mg sublingual 0.4 mg sublingual Q5M PRN Chest 03/23/19 07/01/22 01/25/22 History tablet Pain aspirin 325 mg tablet 325 mg PO DAILY 07/23/19 07/01/22 01/25/22 History Power wheel chair #1 ea 07/22/20 07/01/22 01/25/22 Rx ondansetron 8 mg disintegrating 8 mg PO Q8H PRN nausea and 05/10/21 07/01/22 01/25/22 Rx tablet vomiting #9 tabs bupropion HCl 150 mg 24 hr tablet, See Rx Instructions .Route 08/01/21 07/01/22 01/25/22 Rx extended release .COMPLEX #240 tabs empagliflozin 25 mg tablet See Rx Instructions .Route 08/01/21 07/01/22 01/25/22 Rx (Jardiance) .COMPLEX #90 tabs famotidine 40 mg tablet See Rx Instructions .Route 08/01/21 07/01/22 01/25/22 Rx .COMPLEX #180 tabs fenofibrate nanocrystallized 145 See Rx Instructions .Route 08/01/21 07/01/22 01/25/22 Rx mg tablet .COMPLEX #90 tabs insulin regular human 100 unit/mL See Rx Instructions .Route 08/01/21 07/01/22 01/25/22 Rx injection solution (Novolin R .COMPLEX #30 mL Regular U-100 Insulin) insulin syringe-needle U-100 1 mL #200 ea 08/01/21 07/01/22 01/25/22 Rx 31 gauge x 5/16 ([employer]ocate Syringes) memantine 10 mg tablet (Namenda) 10 mg PO BID #180 tabs 08/01/21 07/01/22 01/25/22 Rx nitroglycerin 6.5 mg 6.5 mg PO BID #180 caps 08/01/21 07/01/22 01/25/22 Rx capsule,extended release pen needle, diabetic 31 gauge x #200 ea 08/01/21 07/01/22 01/25/22 Rx 3/16 (Sure Comfort Pen Needle) pregabalin 150 mg capsule (Lyrica) 150 mg PO TID #270 caps 08/01/21 07/01/22 01/25/22 Rx sertraline 100 mg tablet See Rx Instructions .Route 08/01/21 07/01/22 01/25/22 Rx .COMPLEX #90 tabs carisoprodol 350 mg tablet 350 mg PO TID #90 tabs 10/24/21 07/01/22 01/25/22 Rx dulaglutide 0.75 mg/0.5 mL 0.75 mg (0.5 mL) SUBCUT .weekly #2 12/18/21 07/01/22 01/25/22 Rx subcutaneous pen injector mL [facility] ezetimibe 10 mg tablet See Rx Instructions .Route 04/04/22 07/01/22 Unknown Rx .COMPLEX #90 tabs lisinopril 20 See Rx Instructions .Route 05/15/22 07/01/22 Unknown Rx mg-hydrochlorothiazide 12.5 mg .COMPLEX #90 tabs tablet diltiazem HCl 240 mg capsule,24 240 mg PO DAILY #90 caps 05/28/22 07/01/22 Unknown Rx hr,extended release ergocalciferol (vitamin D2) 1,250 See Rx Instructions .Route 05/28/22 07/01/22 Unknown Rx mcg (50,000 unit) capsule .COMPLEX #16 caps insulin syringe-needle U-100 1 mL #100 ea 05/28/22 07/01/22 Unknown Rx 31 gauge x 5/16 (BD Insulin Syringe Ultra-Fine) alprazolam 0.5 mg tablet 0.5 mg PO BID #60 tabs 06/01/22 07/01/22 Unknown Rx hydrocodone 5 mg-acetaminophen 325 1 tab PO Q6H 20 days #80 tabs 06/22/22 07/01/22 Unknown Rx mg tablet apixaban 5 mg tablet (Eliquis) 5 mg PO BID 07/01/22 07/01/22 Unknown History atenolol 100 mg tablet 100 mg PO DAILY 07/01/22 07/01/22 Unknown History atorvastatin 20 mg tablet 20 mg PO DAILY 07/01/22 07/01/22 Unknown History dulaglutide 1.5 mg/0.5 mL 1.5 mg SUBCUT DIRECTED 07/01/22 07/01/22 06/24/22 07:00 History subcutaneous pen injector (Trulicity) insulin glargine 100 unit/mL (3 See Rx Instructions .Route .COMPLEX 07/01/22 07/01/22 Unknown History mL) subcutaneous pen (Lantus Solostar U-100 Insulin) mirabegron 50 mg tablet,extended 50 mg PO DAILY 07/01/22 07/01/22 Unknown History release 24 hr (Myrbetriq) Allergies Allergy/AdvReac Type Severity Reaction Status Date / Time adhesive Allergy Unknown Verified 04/19/22 16:39 amitriptyline Allergy ALGY-Hives Verified 04/19/22 16:39 cefaclor [From [facility]] Allergy ALGY-Hives Verified 04/19/22 16:39 Current Medications Generic Name Dose Route Start Last Admin Trade Name Freq PRN Reason Stop Dose Admin Hydrocodone Bitart/Acetaminophen 1 tab 07/01/22 06:52 07/03/22 10:37 Hydrocodone-Acetaminophen 5-325 Mg Tablet PO 1 tab Q6H PRN Administration back pain Apixaban 5 mg 07/02/22 18:00 07/03/22 17:14 Apixaban 5 Mg Tablet PO 5 mg BID DERREK Administration Aspirin 325 mg 07/01/22 09:00 07/03/22 08:49 Aspirin 325 Mg Tablet PO 325 mg DAILY DERREK Administration Atorvastatin Calcium 40 mg 07/01/22 21:00 07/02/22 20:53 Atorvastatin 40 Mg Tablet PO 40 mg BEDTIME DERREK Administration Bupropion HCl 300 mg 07/01/22 09:00 07/03/22 08:49 Bupropion Xl (24 Hr) 150 Mg Tablet PO 300 mg DAILY DERREK Administration Carisoprodol 350 mg 07/01/22 06:52 07/02/22 11:24 Carisoprodol 350 Mg Tablet PO 350 mg TID PRN Administration back pain Fenofibrate 145 mg 07/01/22 09:00 07/03/22 08:49 Fenofibrate 145 Mg Tablet PO 145 mg DAILY DERREK Administration Piperacillin Sod/Tazobactam 50 mls @ 12.5 mls/hr 07/01/22 07:30 07/03/22 15:23 Sod 3.375 gm/ Sodium Chloride IV 12.5 mls/hr Q8H DERREK Administration Protocol Insulin Glargine 10 unit 07/01/22 18:00 07/03/22 17:14 Insulin Glargine 100 Units/1 Ml SUBCUT 10 unit BID DERREK Administration Insulin Human Lispro 0 unit 07/01/22 08:00 07/03/22 17:14 Insulin Lispro 100 Unit/1 Ml SUBCUT 6 unit WM&BEDTIME DERREK Administration Protocol Memantine 10 mg 07/01/22 09:00 07/03/22 17:14 Memantine 5 Mg Tablet PO 10 mg BID DERREK Administration Non-Formulary Medication 50 mg 07/02/22 09:00 07/03/22 08:54 Mirabegron [Myrbetriq] PO Not Given DAILY DERREK Pantoprazole Sodium 40 mg 07/01/22 06:52 07/03/22 06:26 Pantoprazole 40 Mg Sdv IVP 40 mg Q24H DERREK Administration Pregabalin 150 mg 07/01/22 09:00 07/03/22 15:23 Pregabalin 150 Mg Capsule PO 150 mg TID DERREK Administration Sertraline HCl 100 mg 07/01/22 09:00 07/03/22 08:49 Sertraline 100 Mg Tablet PO 100 mg DAILY DERREK Administration PFSH Acute PFSH: Medical History Acute maxillary sinusitis Acute maxillary sinusitis Anxiety Back pain with history of spinal surgery Canker sores oral Chest wall pain Chronic back pain Chronic back pain Coronary artery disease involving coronary bypass graft of [place] heart 2019 Diabetes Labs in 3 months. Increase lantus by 10 units. Diabetic ulcer of right lower leg Former smoker Fracture, pelvis closed Hypertension Impacted cerumen of both ears Impacted cerumen of right ear Ingrown toenail of both feet Onychocryptosis Pincer nail deformity Sepsis 2019 Shock Sinusitis Urinary retention UTI (urinary tract infection) Surgical History H/O angioplasty 1992 H/O spinal fusion 1999, 2012 History of prostate surgery 2005 Hx of appendectomy 1987 Knee joint replacement status Bilateral Stented coronary artery 1997 Family History Denies family history of CAD (coronary artery disease) Chronic kidney disease (CKD) Cancer Social History Smoking and tobacco status: former smoker Alcohol intake: never Substance/Drug Use: never Adopted: No Household members: spouse Housing: House Marital status: Number of children: 4 Number of grandchildren: 4 Highest education level completed: Associate Degree: Occupational, Technical, Vocational Program service: Yes status: Retired branch: [employer] Current occupational status: disabled Pets and animals: Yes Current gender identity: Male Vitals/I&O/Wt Last Vital Signs Temp 98.5 F 07/03/22 08:00 Pulse 78 07/03/22 16:00 Resp 16 07/03/22 16:00 BP 133/75 07/03/22 16:00 Pulse Ox 94 07/03/22 16:00 O2 Del Method Room Air 07/03/22 16:00 07/03/22 07/03/22 07/03/22 06:59 14:59 22:59 Intake Total 530 / 2581.433 698.583 / 698.583 200 / 898.583 Output Total 400 / 5490 1999 1150 / 3150 Balance 130 / -2908.567 -1301.417 / -1301.417 -950 / -2251.417 Physical Exam Narrative: GENERAL: The patient is alert and oriented times three. Not in any acute distress. HEENT: No significant pallor, icterus or lymphadenopathy.Oral cavity: There are no mucous membrane lesions. NECK: Trachea appears to be central. No masses noted. No JVD or thyromegaly appreciated. RESPIRATORY: Chest is symmetrical. No intercostals muscle retraction or any accessory muscle activation. There is no chest wall tenderness. Breath sounds are heard bilaterally. No rales or rhonchi heard. No evidence of any consolidation. BREASTS: Deferred. HEART: The heart sounds are normal. No S3 or S4. Short systolic murmur in the lower sternal border. No diastolic murmurs.. No pericardial rub ABDOMEN: No vessel pulsations or distention. No tenderness. No organomegaly appreciated. Bowel sounds are normally heard. : Deferred. RECTAL: Deferred. LYMPHATIC: No lymphadenopathy noted in the neck. EXTREMITIES: No edema or cyanosis. No clubbing. MUSCULOSKELETAL: No acute joint deformities or swelling SKIN: There are no significant rashes or ecchymosis NEUROPSYCHIATRIC: The patient is alert and oriented x3. Appears to be in a good mood. No tremors or rigidity noted. Data 07/03/22 04:14 07/03/22 04:14 Other Labs: Laboratory Last Values WBC 7.1 10^3/uL (4.0-10.0) 07/03/22 04:14 RBC 4.45 10^6/uL (4.1-5.3) 07/03/22 04:14 Hgb 11.9 g/dL (11.7-16.6) 07/03/22 04:14 Hct 37.6 % (42.0-52.0) L 07/03/22 04:14 MCV 84.5 fl (80-94) 07/03/22 04:14 MCH 26.7 pg (28.0-34.0) L 07/03/22 04:14 MCHC 31.6 g/dL (30.0-36.0) 07/03/22 04:14 RDW 12.7 % (12.1-15.1) 07/03/22 04:14 Plt Count 190 10^3/cmm (130-400) 07/03/22 04:14 MPV 10.7 fL (7.4-10.4) H 07/03/22 04:14 Neut % (Auto) 64.0 % 07/03/22 04:14 Lymph % (Auto) 26.5 % 07/03/22 04:14 Elk % (Auto) 7.2 % 07/03/22 04:14 Eos % (Auto) 1.7 % 07/03/22 04:14 Baso % (Auto) 0.3 % 07/03/22 04:14 Neut # (Auto) 4.54 10^3/uL (1.8-7.7) 07/03/22 04:14 Lymph # (Auto) 1.9 10^3/uL (0.8-4.8) 07/03/22 04:14 Elk # (Auto) 0.5 10^3/uL (0.2-0.9) 07/03/22 04:14 Eos # (Auto) 0.1 10^3/uL (0.0-0.8) 07/03/22 04:14 Baso # (Auto) 0.0 10^3/uL (0.0-0.1) 07/03/22 04:14 Nucleated RBC % (auto) 0 % 07/03/22 04:14 Nucleated RBCs # 0.0 /100WBC 07/03/22 04:14 APTT 38.5 SECONDS (23.9-36.7) H 07/02/22 05:37 Specimen Type Arterial 07/01/22 01:48 Sample Site Radial, left 07/01/22 01:48 ABG pH 7.38 (7.35-7.45) 07/01/22 01:48 ABG pCO2 42.4 mmHg (35-45) 07/01/22 01:48 ABG pO2 60.2 mmHg (80.0-100.0) L 07/01/22 01:48 ABG HCO3 24.8 mmol/L (22-26) 07/01/22 01:48 ABG Base Excess -0.5 mmol/L (-2.0-2.0) 07/01/22 01:48 Shyam Test Pos 07/01/22 01:48 Hematocrit 36.9 % (42-52) L 07/01/22 01:48 O2 Delivery Device Room air 07/01/22 01:48 Electronic Transaction Implementer ID [email or web address] 07/01/22 01:48 Sodium 138 mmol/L (136-145) 07/03/22 04:14 Potassium 3.8 mmol/L (3.5-5.1) 07/03/22 04:14 Chloride 104 mmol/L (98-107) 07/03/22 04:14 Carbon Dioxide 25 mmol/L (22-29) 07/03/22 04:14 Anion Gap 12.8 (5-19) 07/03/22 04:14 BUN 15 mg/dL (8-23) 07/03/22 04:14 Creatinine 0.8 mg/dL (0.7-1.2) 07/03/22 04:14 GFR Calculation Not Reportable 07/03/22 04:14 Glucose 218 mg/dL (65-115) H 07/03/22 04:14 POC Glucose 178 mg/dL (70-110) H 07/03/22 17:07 Estimat Average Glucose 223 07/02/22 05:37 Hemoglobin A1c 9.4 % (4.0-6.0) H 07/02/22 05:37 Calculated Osmolality 293 mOsm/kg (285-295) 07/03/22 04:14 Lactic Acid 1.4 mmol/L (0.5-2.2) 07/01/22 00:55 Calcium 8.7 mg/dL (8.5-10.5) 07/03/22 04:14 Iron 33 ug/dL (59-158) L 07/01/22 07:30 TIBC 152 mcg/dl 07/01/22 07:30 % Saturation 21.7 % (20-50) 07/01/22 07:30 Unsat Iron Binding 119 ug/dL (112-347) 07/01/22 07:30 Total Bilirubin 0.2 mg/dL (0.15-1.2) 07/03/22 04:14 AST 11 U/L (0-40) 07/03/22 04:14 ALT 10 U/L (0-41) 07/03/22 04:14 Alkaline Phosphatase 125 U/L (40-130) 07/03/22 04:14 Troponin T Gen 5 ng/L 74 ng/L (0-15) H 07/02/22 05:37 Troponin T Baseline 130 ng/L (0-15) H* 06/30/22 00:55 Troponin T 120 Minute 128.6 ng/L (0-15) H 07/01/22 02:42 Delta Troponin T -1.4 ABS# (0-10) L 07/01/22 02:42 Troponin T Hi Sens 6Hr 116.0 ng/L (0-15) H 07/01/22 07:30 Troponin T Hi Sens 6Hr Delta -14 ng/L (0-12) L 07/01/22 07:30 NT-Pro-B Natriuret Pep 882 pg/mL (0-450) H 06/30/22 07:30 Total Protein 6.6 g/dL (6.6-8.7) 07/03/22 04:14 Albumin 2.7 g/dL (3.5-5.2) L 07/03/22 04:14 Globulin 3.9 g/dL (1.3-4.6) 07/03/22 04:14 Triglycerides 124 mg/dL (0-150) 07/02/22 05:37 Cholesterol 89 mg/dL (0-200) 07/02/22 05:37 LDL Cholesterol, Calc 31 mg/dL (50-129) L 07/02/22 05:37 Total VLDL Cholesterol 25 mg/dL (0-30) 07/02/22 05:37 HDL Cholesterol 33 mg/dL (60-100) L 07/02/22 05:37 Cholesterol/HDL Ratio 2.70 mg/dL (1.0-5.00) 07/02/22 05:37 Vitamin B12 1168 pg/mL (232-1245) 07/01/22 07:30 Folate 14.4 ng/mL (4.5-32.2) 07/01/22 07:30 Procalcitonin 0.99 ng/mL (0-0.5) H 06/30/22 07:30 TSH 0.79 uIU/mL (0.27-4.20) 07/01/22 07:30 Urine Color Yellow (Yellow) 07/01/22 00:22 Urine Appearance Sl hazy (CLEAR) A 07/01/22 00:22 Urine pH 6 (5-7) 07/01/22 00:22 Ur Specific [place] 1.000 (1.005-1.030) L 07/01/22 00:22 Urine Protein 1+ (Negative) H 07/01/22 00:22 Urine Glucose (UA) 4+ (Normal) H 07/01/22 00:22 Urine Ketones Negative (Negative) 07/01/22 00:22 Urine Blood 2+ (Negative) H 07/01/22 00:22 Urine Nitrate Negative (Negative) 07/01/22 00:22 Urine Bilirubin Neg (Negative) 07/01/22 00:22 Urine Urobilinogen Norm mg/dL (Negative) 07/01/22 00:22 Ur Leukocyte Esterase 2+ (Negative) H 07/01/22 00:22 Urine RBC 5-10 /hpf (0-2) H 07/01/22 00:22 Urine WBC 25-40 /hpf (0-5) H 07/01/22 00:22 Ur Squamous Epith Cells 0-4 /hpf (0-5) H 07/01/22 00:22 Amorphous Sediment Not Reportable 07/01/22 00:22 Urine Bacteria Trace /hpf (NONE) 07/01/22 00:22 Urine Yeast 2+ /hpf H 07/01/22 00:22 Nasal Influ A H1 2008 PCR Not detected (NOT DETECT) 07/01/22 12:35 Serum Ketones Negative (Negative) 07/01/22 00:55 Adenovirus (PCR) Not detected (NOT DETECT) 07/01/22 12:35 C. pneumoniae DNA (PCR) Not detected (NOT DETECT) 07/01/22 12:35 Coronavirus 229E (PCR) Not detected (NOT DETECT) 07/01/22 12:35 Human Metapneumovir PCR Not detected (NOT DETECT) 07/01/22 12:35 Influenza A (H1) PCR Not detected (NOT DETECT) 07/01/22 12:35 Influenza A (H3) PCR Not detected (NOT DETECT) 07/01/22 12:35 Influenza Type A (PCR) Not detected (NOT DETECT) 07/01/22 12:35 Influenza Type B (PCR) Not detected (NOT DETECT) 07/01/22 12:35 M. pneumoniae (PCR) Not detected (NOT DETECT) 07/01/22 12:35 Parainfluenza 1 (PCR) Not detected (NOT DETECT) 07/01/22 12:35 Parainfluenza 2 (PCR) Not detected (NOT DETECT) 07/01/22 12:35 Parainfluenza 3 (PCR) Not detected (NOT DETECT) 07/01/22 12:35 Parainfluenza 4 (PCR) Not detected (NOT DETECT) 07/01/22 12:35 RSV Type A (PCR) Not detected (NOT DETECT) 07/01/22 12:35 RSV Type B (PCR) Not detected (NOT DETECT) 07/01/22 12:35 Entero/Rhino (PCR) Not detected (NOT DETECT) 07/01/22 12:35 SARS-CoV-2 (PCR) Not detected (NOT DETECT) 07/01/22 12:35 Micro: Microbiology 07/01/22 00:22 Urine Culture - Final Urine,Clean Catch 07/01/22 12:35 MRSA Culture - Final Nose Echo: My impression: ?Normal left ventricular cavity size. Normal left ventricular ?wall thickness. Normal left ventricular systolic function.? ?There is a very small area of the mid anterior wall which is ?dyskinetic.? This may be a muscle defect as opposed to an ?infarcted segment.? It is very small and does not affect the ?overall function of the ventricle.? Grade 1 diastolic ?dysfunction.? Estimated ejection fraction 55 to 60%. ?There are no prior echocardiogram studies to compare. EKG 1: My Interpretation: Sinus tachycardia with a heart rate of 121 bpm. First-degree AV block. Minimal voltage irregular for LVH. Poor R wave progression. Possible old septal [place]. A&P Assessment and plan (1) Elevated troponin: It is possible that the patient may have had a non-ST elevation myocardial infarction. Currently he is asymptomatic. The EKG is not show any acute ST-T changes. (2) Coronary artery disease involving coronary bypass graft of [place] heart: Noted to further evaluate the coronary status, it may be appropriate to go ahead and do a Myocardial perfusion imaging. This was discussed with the patient and his in detail which they understood well and consented to proceed. We may go ahead and do schedule him for a Lexiscan/sestamibi stress sestamibi stress test tomorrow. (3) Hypertension: Currently normotensive. May continue on the current medications. Qualifiers: Hypertension type: essential hypertension Qualified Code(s): I10 - Essential (primary) hypertension (4) Diabetes: Importance of aggressive management of the diabetes, cardiovascular complications of uncontrolled diabetes and the need for compliance to treatment were discussed. Patient seems to understand these well. We will have the follow-up evaluations as scheduled (5) Septic shock: Patient was treated with IV antibiotics. Currently the vital signs are stable. He is remaining afebrile. Plan Other problems are Dyslipidemia Pelvic fracture Based on the results of the above tests and the patient's clinical progress, further recommendations will be made. Thank you for the opportunity to evaluate this patient and make these recommendations Consult Attestations Medical Necessity Statement: Patient requires continued hospital stay for close monitoring and further management Coding Level of Care Code 66219 Diagnoses Elevated troponin R77.8 Coronary artery disease involving coronary bypass graft of [place] heart I25.810 Hypertension I10 Hypertension type: essential hypertension Diabetes E11.9 Septic shock A41.9; R65.21
--- NOTE | 2022-07-03 19:34 | ECG_ITS ---
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 Interpretive Statements NAME OF STUDY: LEXISCAN SESTAMIBI STRESS TEST INDICATION: Chest Pain, PROCEDURE: At the baseline, the EKG revealed normal sinus rhythm with a poor R wave progression. Normal ST Ts. The baseline heart was 78 bpm with a blood pressue of 133/71 mm of Hg Lexiscan was infused over a period of 20 seconds. A total of 0.4 milligrams of Lexiscan was infused. The stress phase was continued for a total of 5 minutes. Heart rate at the end of the stress phase was 95 bpm with a blood pressure 114/61 mm of Hg. The EKG at the peak infusion revealed no significant changes. Sestamibi was injected 20 seconds after the Lexiscan infusion. Heart rate at the end of the recovery phase was 92 bpm with a blood pressure of 147/70 mm of Hg. CONCLUSION: 1. No significant EKG changes with the LexiScan infusion 2. No LexiScan induced chest pain or cardiac arrhythmia 3. Normal blood pressure and heart rate response 4. Sestamibi/sestamibi perfusion scan pending; see separate report. Electronically Signed On 07-06-2022 7:35:23 CDT by Alejandro Vides M.D. [email or web address]
[2022-07-03] MEDS: atorvastatin 40 mg Tablet PO (21:02)
[2022-07-03 21:03] LABS: Glucose Point of Care 251 mg/dL (70-110)
[2022-07-03] MEDS: zinc oxide oint 30 gm 1 APPLIC TOPICAL (22:03)
[2022-07-04] VITALS (12 sets, daily range): BP systolic 123–166; BP diastolic 63–93; PULSE 78–94; RESP 18–23; TEMP 36.8; O2SAT 93–97
[2022-07-04] MEDS: pantoprazole 40 mg SDV IVP (03:20)
[2022-07-04] MEDS: HYDROcodone-acetaminophen 5-325 mg Tablet 1 TAB PO (03:26)
[2022-07-04 05:21] LABS: Basophils % 0.3 %; Eosinophils # 0.1 10^3/uL (0.0-0.8); Eosinophils % 1.8 %; Hematocrit 37.8 % (42.0-52.0); Hemoglobin 12.3 g/dL (11.7-16.6); Lymphocytes # 1.9 10^3/uL (0.8-4.8); Lymphocytes % 23.8 %; Mean Corpuscular HGB Conc 32.5 g/dL (30.0-36.0); Mean Corpuscular Hemoglobin 27.3 pg (28.0-34.0); Mean Platelet Volume 10.4 fL (7.4-10.4); Monocytes # 0.5 10^3/uL (0.2-0.9); Monocytes % 6.3 %; Neutrophils # 5.21 10^3/uL (1.8-7.7); Neutrophils % 67.2 %; Nucleated Red Blood Cells % 0 %; Platelet Count 193 10^3/cmm (130-400); Red Cell Distribution Width 12.9 % (12.1-15.1); White Blood Count 7.8 10^3/uL (4.0-10.0)
[2022-07-04 05:38] LABS: Albumin Level 2.9 g/dL (3.5-5.2); Anion Gap 13.7 (5-19); Blood Urea Nitrogen 15 mg/dL (8-23); Calcium 9.1 mg/dL (8.5-10.5); Carbon Dioxide 26 mmol/L (22-29); Chloride 102 mmol/L (98-107); Glucose 159 mg/dL (65-115); Magnesium 1.7 mg/dL (1.7-2.3); Phosphorus 2.1 mg/dL (2.5-4.5); Potassium 3.7 mmol/L (3.5-5.1); Sodium 138 mmol/L (136-145)
[2022-07-04] MEDS: piperacillin-tazobactam 3.375 GM in sodium chloride 0.9% (plus) 50 ML IV ×2 (06:00→14:46)
[2022-07-04 06:20] LABS: Glucose Point of Care 155 mg/dL (70-110)
[2022-07-04] MEDS: regadenoson 0.4 Mg/5 ml Syringe IVP (07:41)
[2022-07-04] MEDS: fenofibrate 145 mg Tablet PO (09:25)
[2022-07-04] MEDS: apixaban 5 mg Tablet PO ×2 (09:25→17:07)
[2022-07-04] MEDS: aspirin 325 mg Tablet PO (09:25)
[2022-07-04] MEDS: buPROPion XL (24 HR) 150 mg Tablet 300 MG PO (09:25)
[2022-07-04] MEDS: insulin glargine 100 units/1 mL 10 UNIT SUBCUT ×2 (09:25→17:06)
[2022-07-04] MEDS: memantine 5 mg tablet 10 MG PO ×2 (09:25→17:07)
[2022-07-04] MEDS: sertraline 100 mg Tablet PO (09:25)
[2022-07-04] MEDS: pregabalin 150 mg Capsule PO ×3 (09:25→21:07)
[2022-07-04] MEDS: insulin lispro 100 unit/1 mL SUBCUT ×4 (09:26→21:06)
[2022-07-04 11:24] LABS: Glucose Point of Care 216 mg/dL (70-110)
--- NOTE | 2022-07-04 12:43 | PC.SOCIAL ---
Pg 2 IMM Explained pt on Pg 2 IMM. No questions voiced. Provided pt a copy. Initialed, dated, & timed a copy & placed in chart.
--- NOTE | 2022-07-04 13:23 | PM.PN ---
Subjective Subjective: Patient is awake and alert. He continues to endorse left knee pain. Denies fevers, chills, nausea or emesis. Underwent MPS this morning with results pending. Spoke with son bedside later in the day regarding plan of care. They do have hospital bed at home but patient is unable to transfer which significantly limits his mobility and quality of life. He would medically benefit from mechanical lift to increase mobility. Medications: Reviewed: Yes Vitals/I&O/Wt Last Vital Signs Temp 98.7 F 07/03/22 23:29 Pulse 94 07/04/22 08:27 Resp 18 07/04/22 03:33 BP 136/63 07/04/22 08:27 Pulse Ox 94 07/04/22 08:39 O2 Del Method Room Air 07/04/22 08:39 07/03/22 07/04/22 07/04/22 22:59 06:59 14:59 Intake Total 1610 / 2308.583 50 / 2358.583 290 / 290 Output Total 2100 / 4100 1500 / 5600 Balance -490 / -1791.417 -1450 / -3241.417 290 / 290 Physical Exam Narrative: General: Patient is awake. Alert. Pleasant. Head: Normocephalic. Atraumatic. EOM intact. Neck: No JVD. Cardiovascular: RRR. No gallops. No murmurs. Hypertensive. Lungs: Clear to auscultation, no use of accessory muscles, no crackles or wheezes. Skin: No jaundice. Large rash on buttocks, backs and upper inner legs. Abdomen: Normal bowel sounds, abdomen soft and nontender. Genito Urinary: Genital exam not performed since complaints not related. Rectal: Rectal exam not performed since no symptoms indicated blood loss. Extremities: No cyanosis or clubbing. Musculoskeletal: Left knee swollen. TTP. Neurological: Moves all 4 extremities. No myoclonus. Urinary Catheter Management: Payne: Cath Placed During This Visit: no Reason for Continuing Indwelling Catheter: Chronic Indwelling Urinary Catheter on Admission Data 07/04/22 05:13 07/04/22 05:13 Micro: Microbiology 07/01/22 00:22 Urine Culture - Final Urine,Clean Catch A&P Assessment and plan (1) UTI (urinary tract infection): Outside records reviewed, ID @ [facility] recommended ceftriaxone x3 weeks however pt became septic on Rocephin D/w abx w/ pt and family Rotate from Zosyn to cefepime, monitor for change in condition considering there appears to be no culture data to guide treatment Discussed home IV abx w/ CM Qualifiers: Urinary tract infection type: acute cystitis (2) Elevated troponin: Associated with CAD w/ hx of CABG Continue telemetry Continue home apixaban Continue atorvastatin Continue aspirin, may benefit from dosage change to 81 mg Home cardizem and atenolol have been held Patient discussed w/ Dr Vides, planning for MPS later today (3) Knee pain: Associated with large joint effusion (4) Pubic ramus fracture: Analgesics as needed WBAT (5) Dementia: High risk for delirium Continue Namenda Plan for outpatient referral to Dr Mayen at discharge (6) Diabetic peripheral neuropathy associated with type 2 diabetes mellitus: Continus Lantus 10 units BID SSI Avoid hypoglycemia Continue Lyrica (7) Anxiety and depression: Continue Xanax PRN Continue sertraline Continue wellbutrin (8) Gastroesophageal reflux disease: Continue PPI Qualifiers: Esophagitis presence: esophagitis presence not specified Qualified Code(s): K21.9 - Gastro-esophageal reflux disease without esophagitis (9) Hypertension: Home atenolol, cardizem, HCTZ, and lisinopril on hold Restart home antihypertensives as blood pressure improves Qualifiers: Hypertension type: essential hypertension Qualified Code(s): I10 - Essential (primary) hypertension (10) Back pain with history of spinal surgery: Continue home Soma, would probably benefit from weaning to alternative agent as outpatient Plan DVT ppx: Apixaban Code Status: Full Code Attestations Medical Necessity Statement*: Patient requires ongoing hospitalization for stress testing, telemetry, IV abx, and supportive care. Coding Level of Care Code Acute Code for Chg Fwd Diagnoses UTI (urinary tract infection) N39.0 Urinary tract infection type: acute cystitis Elevated troponin R77.8 Knee pain M25.569 Pubic ramus fracture S32.599A Dementia F03.90 Diabetic peripheral neuropathy associated with type 2 diabetes mellitus E11.42 Anxiety and depression F41.9; F32.9 Gastroesophageal reflux disease K21.9 Esophagitis presence: esophagitis presence not specified Hypertension I10 Hypertension type: essential hypertension Back pain with history of spinal surgery M54.9
[2022-07-04 16:55] LABS: Glucose Point of Care 288 mg/dL (70-110)
[2022-07-04] MEDS: cefepime 2,000 MG in sodium chloride 0.9% (plus) 50 ML 100 MG IV (17:06)
--- NOTE | 2022-07-04 18:06 | PM.PN ---
Subjective Subjective: Mr. Cifuentes had a Myocardial perfusion imaging today. He was found no evidence of ischemia, based on the perfusion scan. He denies any chest pain or chest tightness. No unusual shortness of breath. The vital signs are remaining stable. He is afebrile. Medications: Medication Review Details: Current Medications Acetaminophen (Acetaminophen 325 Mg Tablet) 650 mg PO Q6H PRN PRN Reason: Mild/Mod Pain Or Temp >/= 101 Hydrocodone Bitart/Acetaminophen (Hydrocodone-Acetaminophen 5-325 Mg Tablet) 1 tab PO Q6H PRN PRN Reason: back pain Last Admin: 07/04/22 03:26 Dose: 1 tab Alprazolam (Alprazolam 0.5 Mg Tablet) 0.5 mg PO BID PRN PRN Reason: ANXIETY Aminophylline (Aminophylline 25 Mg/Ml Sdv 10 Ml) 25 mg IVP Q2M PRN PRN Reason: see dose instructions Stop: 07/05/22 06:23 Apixaban (Apixaban 5 Mg Tablet) 5 mg PO BID [facility] Last Admin: 07/04/22 17:07 Dose: 5 mg Aspirin (Aspirin 325 Mg Tablet) 325 mg PO DAILY [facility] Last Admin: 07/04/22 09:25 Dose: 325 mg Atorvastatin Calcium (Atorvastatin 40 Mg Tablet) 40 mg PO BEDTIME [facility] Last Admin: 07/03/22 21:02 Dose: 40 mg Bupropion HCl (Bupropion Xl (24 Hr) 150 Mg Tablet) 300 mg PO DAILY [facility] Last Admin: 07/04/22 09:25 Dose: 300 mg Carisoprodol (Carisoprodol 350 Mg Tablet) 350 mg PO TID PRN PRN Reason: back pain Last Admin: 07/04/22 02:38 Dose: 350 mg Dextrose (Dextrose 50% Syringe 50 Ml) 50 ml IVP PRN PRN; Protocol PRN Reason: hypoglycemia protocol Dextrose (Dextrose 50% Syringe 50 Ml) 25 ml IVP ONCE PRN; Protocol PRN Reason: hypoglycemia protocol Fenofibrate (Fenofibrate 145 Mg Tablet) 145 mg PO DAILY [facility] Last Admin: 07/04/22 09:25 Dose: 145 mg Fluconazole (Fluconazole 100 Mg Tablet) 200 mg PO DAILY [facility] Glucagon (Glucagon 1 Mg/Ml Inj 1 Ml) 1 mg IM ONCE PRN; Protocol PRN Reason: Adult Acute Hypoglycemia Prot. Dextrose (D5w) 500 mls @ 100 mls/hr IV ONCE PRN; Protocol PRN Reason: Adult Acute Hypoglycemia Prot Cefepime HCl 2,000 mg/ Sodium (Chloride) 50 mls @ 100 mls/hr IV Q12H [facility]; Protocol Last Admin: 07/04/22 17:06 Dose: 100 mls/hr Insulin Glargine (Insulin Glargine 100 Units/1 Ml) 10 unit SUBCUT BID [facility] Last Admin: 07/04/22 17:06 Dose: 10 unit Insulin Human Lispro (Insulin Lispro 100 Unit/1 Ml) 0 unit SUBCUT WM&BEDTIME [facility]; Protocol Last Admin: 07/04/22 17:07 Dose: 12 unit Memantine (Memantine 5 Mg Tablet) 10 mg PO BID [facility] Last Admin: 07/04/22 17:07 Dose: 10 mg Nitroglycerin (Nitroglycerin 0.4 Mg Sublingual Tablet) 0.4 mg SUBLINGUAL Q5M PRN PRN Reason: CHEST PAIN Stop: 07/05/22 06:23 Non-Formulary Medication (Mirabegron [Myrbetriq]) 50 mg PO DAILY [facility] Last Admin: 07/04/22 09:29 Dose: Not Given Ondansetron HCl (Ondansetron 2 Mg/Ml Sdv 2 Ml) 4 mg IVP Q8H PRN PRN Reason: vomiting, or N/V if npo Ondansetron HCl (Ondansetron 2 Mg/Ml Sdv 2 Ml) 4 mg IVP Q2M PRN PRN Reason: NAUSEA Pantoprazole Sodium (Pantoprazole 40 Mg Sdv) 40 mg IVP Q24H [facility] Last Admin: 07/04/22 03:20 Dose: 40 mg Pregabalin (Pregabalin 150 Mg Capsule) 150 mg PO TID [facility] Last Admin: 07/04/22 14:46 Dose: 150 mg Sertraline HCl (Sertraline 100 Mg Tablet) 100 mg PO DAILY [facility] Last Admin: 07/04/22 09:25 Dose: 100 mg Zinc Oxide (Zinc Oxide Oint 30 Gm) 1 applic TOPICAL PRN PRN PRN Reason: SKIN PROTECTANT Last Admin: 07/03/22 22:03 Dose: 1 applic Vitals/I&O/Wt Last Vital Signs Temp 98.7 F 07/03/22 23:29 Pulse 78 07/04/22 16:00 Resp 18 07/04/22 16:00 BP 166/93 07/04/22 16:00 Pulse Ox 93 07/04/22 13:44 O2 Del Method Room Air 07/04/22 13:44 07/04/22 07/04/22 07/04/22 06:59 14:59 22:59 Intake Total 50 / 2358.583 650 / 650 336.458 / 986.458 Output Total 1500 / 5600 750 / 750 Balance -1450 / -3241.417 -100 / -100 336.458 / 236.458 Physical Exam Narrative: GENERAL: The patient is alert and oriented times three. Not in any acute distress. HEENT: No significant pallor, icterus or lymphadenopathy.Oral cavity: There are no mucous membrane lesions. NECK: Trachea appears to be central. No masses noted. No JVD or thyromegaly appreciated. RESPIRATORY: Chest is symmetrical. No intercostals muscle retraction or any accessory muscle activation. There is no chest wall tenderness. Breath sounds are heard bilaterally. No rales or rhonchi heard. No evidence of any consolidation. BREASTS: Deferred. HEART: The heart sounds are normal. No S3 or S4. Short systolic murmur in the lower sternal border. No diastolic murmurs.. No pericardial rub ABDOMEN: No vessel pulsations or distention. No tenderness. No organomegaly appreciated. Bowel sounds are normally heard. : Deferred. RECTAL: Deferred. LYMPHATIC: No lymphadenopathy noted in the neck. EXTREMITIES: No edema or cyanosis. No clubbing. MUSCULOSKELETAL: No acute joint deformities or swelling SKIN: There are no significant rashes or ecchymosis NEUROPSYCHIATRIC: The patient is alert and oriented x3. Appears to be in a good mood. No tremors or rigidity noted. Urinary Catheter Management: Payne: Cath Placed During This Visit: no Reason for Continuing Indwelling Catheter: Chronic Indwelling Urinary Catheter on Admission Data 07/04/22 05:13 07/04/22 05:13 Other Labs: Laboratory Last Values WBC 7.8 10^3/uL (4.0-10.0) 07/04/22 05:13 RBC 4.50 10^6/uL (4.1-5.3) 07/04/22 05:13 Hgb 12.3 g/dL (11.7-16.6) 07/04/22 05:13 Hct 37.8 % (42.0-52.0) L 07/04/22 05:13 MCV 84.0 fl (80-94) 07/04/22 05:13 MCH 27.3 pg (28.0-34.0) L 07/04/22 05:13 MCHC 32.5 g/dL (30.0-36.0) 07/04/22 05:13 RDW 12.9 % (12.1-15.1) 07/04/22 05:13 Plt Count 193 10^3/cmm (130-400) 07/04/22 05:13 MPV 10.4 fL (7.4-10.4) 07/04/22 05:13 Neut % (Auto) 67.2 % 07/04/22 05:13 Lymph % (Auto) 23.8 % 07/04/22 05:13 [place] % (Auto) 6.3 % 07/04/22 05:13 Eos % (Auto) 1.8 % 07/04/22 05:13 Baso % (Auto) 0.3 % 07/04/22 05:13 Neut # (Auto) 5.21 10^3/uL (1.8-7.7) 07/04/22 05:13 Lymph # (Auto) 1.9 10^3/uL (0.8-4.8) 07/04/22 05:13 [place] # (Auto) 0.5 10^3/uL (0.2-0.9) 07/04/22 05:13 Eos # (Auto) 0.1 10^3/uL (0.0-0.8) 07/04/22 05:13 Baso # (Auto) 0.0 10^3/uL (0.0-0.1) 07/04/22 05:13 Nucleated RBC % (auto) 0 % 07/04/22 05:13 Nucleated RBCs # 0.0 /100WBC 07/04/22 05:13 APTT 38.5 SECONDS (23.9-36.7) H 07/02/22 05:37 Specimen Type Arterial 07/01/22 01:48 Sample Site Radial, left 07/01/22 01:48 ABG pH 7.38 (7.35-7.45) 07/01/22 01:48 ABG pCO2 42.4 mmHg (35-45) 07/01/22 01:48 ABG pO2 60.2 mmHg (80.0-100.0) L 07/01/22 01:48 ABG HCO3 24.8 mmol/L (22-26) 07/01/22 01:48 ABG Base Excess -0.5 mmol/L (-2.0-2.0) 07/01/22 01:48 Shyam Test Pos 07/01/22 01:48 Hematocrit 36.9 % (42-52) L 07/01/22 01:48 O2 Delivery Device Room air 07/01/22 01:48 Group Exercise Class Instructor ID [email or web address] 07/01/22 01:48 Sodium 138 mmol/L (136-145) 07/04/22 05:13 Potassium 3.7 mmol/L (3.5-5.1) 07/04/22 05:13 Chloride 102 mmol/L (98-107) 07/04/22 05:13 Carbon Dioxide 26 mmol/L (22-29) 07/04/22 05:13 Anion Gap 13.7 (5-19) 07/04/22 05:13 BUN 15 mg/dL (8-23) 07/04/22 05:13 Creatinine 0.7 mg/dL (0.7-1.2) 07/04/22 05:13 GFR Calculation Not Reportable 07/04/22 05:13 Glucose 159 mg/dL (65-115) H 07/04/22 05:13 POC Glucose 288 mg/dL (70-110) H 07/04/22 16:52 Estimat Average Glucose 223 07/02/22 05:37 Hemoglobin A1c 9.4 % (4.0-6.0) H 07/02/22 05:37 Calculated Osmolality 293 mOsm/kg (285-295) 07/03/22 04:14 Lactic Acid 1.4 mmol/L (0.5-2.2) 07/01/22 00:55 Calcium 9.1 mg/dL (8.5-10.5) 07/04/22 05:13 Phosphorus 2.1 mg/dL (2.5-4.5) L 07/04/22 05:13 Magnesium 1.7 mg/dL (1.7-2.3) 07/04/22 05:13 Iron 33 ug/dL (59-158) L 07/01/22 07:30 TIBC 152 mcg/dl 07/01/22 07:30 % Saturation 21.7 % (20-50) 07/01/22 07:30 Unsat Iron Binding 119 ug/dL (112-347) 07/01/22 07:30 Total Bilirubin 0.2 mg/dL (0.15-1.2) 07/03/22 04:14 AST 11 U/L (0-40) 07/03/22 04:14 ALT 10 U/L (0-41) 07/03/22 04:14 Alkaline Phosphatase 125 U/L (40-130) 07/03/22 04:14 Troponin T Gen 5 ng/L 74 ng/L (0-15) H 07/02/22 05:37 Troponin T Baseline 130 ng/L (0-15) H* 06/30/22 00:55 Troponin T 120 Minute 128.6 ng/L (0-15) H 07/01/22 02:42 Delta Troponin T -1.4 ABS# (0-10) L 07/01/22 02:42 Troponin T Hi Sens 6Hr 116.0 ng/L (0-15) H 07/01/22 07:30 Troponin T Hi Sens 6Hr Delta -14 ng/L (0-12) L 07/01/22 07:30 NT-Pro-B Natriuret Pep 882 pg/mL (0-450) H 06/30/22 07:30 Total Protein 6.6 g/dL (6.6-8.7) 07/03/22 04:14 Albumin 2.9 g/dL (3.5-5.2) L 07/04/22 05:13 Globulin 3.9 g/dL (1.3-4.6) 07/03/22 04:14 Triglycerides 124 mg/dL (0-150) 07/02/22 05:37 Cholesterol 89 mg/dL (0-200) 07/02/22 05:37 LDL Cholesterol, Calc 31 mg/dL (50-129) L 07/02/22 05:37 Total VLDL Cholesterol 25 mg/dL (0-30) 07/02/22 05:37 HDL Cholesterol 33 mg/dL (60-100) L 07/02/22 05:37 Cholesterol/HDL Ratio 2.70 mg/dL (1.0-5.00) 07/02/22 05:37 Vitamin B12 1168 pg/mL (232-1245) 07/01/22 07:30 Folate 14.4 ng/mL (4.5-32.2) 07/01/22 07:30 Procalcitonin 0.99 ng/mL (0-0.5) H 06/30/22 07:30 TSH 0.79 uIU/mL (0.27-4.20) 07/01/22 07:30 Urine Color Yellow (Yellow) 07/01/22 00:22 Urine Appearance Sl hazy (CLEAR) A 07/01/22 00:22 Urine pH 6 (5-7) 07/01/22 00:22 Ur Specific [place] 1.000 (1.005-1.030) L 07/01/22 00:22 Urine Protein 1+ (Negative) H 07/01/22 00:22 Urine Glucose (UA) 4+ (Normal) H 07/01/22 00:22 Urine Ketones Negative (Negative) 07/01/22 00:22 Urine Blood 2+ (Negative) H 07/01/22 00:22 Urine Nitrate Negative (Negative) 07/01/22 00:22 Urine Bilirubin Neg (Negative) 07/01/22 00:22 Urine Urobilinogen Norm mg/dL (Negative) 07/01/22 00:22 Ur Leukocyte Esterase 2+ (Negative) H 07/01/22 00:22 Urine RBC 5-10 /hpf (0-2) H 07/01/22 00:22 Urine WBC 25-40 /hpf (0-5) H 07/01/22 00:22 Ur Squamous Epith Cells 0-4 /hpf (0-5) H 07/01/22 00:22 Amorphous Sediment Not Reportable 07/01/22 00:22 Urine Bacteria Trace /hpf (NONE) 07/01/22 00:22 Urine Yeast 2+ /hpf H 07/01/22 00:22 Nasal Influ A H1 2008 PCR Not detected (NOT DETECT) 07/01/22 12:35 Serum Ketones Negative (Negative) 07/01/22 00:55 Adenovirus (PCR) Not detected (NOT DETECT) 07/01/22 12:35 C. pneumoniae DNA (PCR) Not detected (NOT DETECT) 07/01/22 12:35 Coronavirus 229E (PCR) Not detected (NOT DETECT) 07/01/22 12:35 Human Metapneumovir PCR Not detected (NOT DETECT) 07/01/22 12:35 Influenza A (H1) PCR Not detected (NOT DETECT) 07/01/22 12:35 Influenza A (H3) PCR Not detected (NOT DETECT) 07/01/22 12:35 Influenza Type A (PCR) Not detected (NOT DETECT) 07/01/22 12:35 Influenza Type B (PCR) Not detected (NOT DETECT) 07/01/22 12:35 M. pneumoniae (PCR) Not detected (NOT DETECT) 07/01/22 12:35 Parainfluenza 1 (PCR) Not detected (NOT DETECT) 07/01/22 12:35 Parainfluenza 2 (PCR) Not detected (NOT DETECT) 07/01/22 12:35 Parainfluenza 3 (PCR) Not detected (NOT DETECT) 07/01/22 12:35 Parainfluenza 4 (PCR) Not detected (NOT DETECT) 07/01/22 12:35 RSV Type A (PCR) Not detected (NOT DETECT) 07/01/22 12:35 RSV Type B (PCR) Not detected (NOT DETECT) 07/01/22 12:35 Entero/Rhino (PCR) Not detected (NOT DETECT) 07/01/22 12:35 SARS-CoV-2 (PCR) Not detected (NOT DETECT) 07/01/22 12:35 A&P Assessment and plan (1) Elevated troponin: 1 likely is a type II OK. Currently has no evidence of ischemia, based on the perfusion scan. (2) Coronary artery disease involving coronary bypass graft of [place] heart: Patient has no specific symptoms of coronary insufficiency at this time. The Myocardial perfusion imaging findings were discussed with the patient detail which is understood well. At this point, he may not require any further investigations. The limitations of the Myocardial perfusion imaging also was discussed in detail with the patient which is understood well (3) Hypertension: Currently normotensive. May continue on the current medications. Qualifiers: Hypertension type: essential hypertension Qualified Code(s): I10 - Essential (primary) hypertension (4) Diabetes: May continue on the current management. (5) Septic shock: Patient was treated with IV antibiotics. Currently the vital signs are stable. He is remaining afebrile. Plan Other problems are Dyslipidemia Pelvic fracture Patient may be continued on the current medications. Attestations Medical Necessity Statement*: Disposition as per the primary Coding Level of Care Code 64639 Diagnoses Elevated troponin R77.8 Coronary artery disease involving coronary bypass graft of [place] heart I25.810 Hypertension I10 Hypertension type: essential hypertension Diabetes E11.9 Septic shock A41.9; R65.21
--- NOTE | 2022-07-04 19:34 | NMCV_ITS ---
NM endy perf SPECT r/s* [id number] Dominick Cifuentes Age: 77 Gender: M : 1945 Exam Date: 07/04/2022 06:48 Ordering Phys: Alejandro Vides MD ([email or web address]) Technologist: RUTH ANN Hinojosa Exam Location: [facility] [place] Indications: CHEST PAIN STRESS TEST Please see separate stress test report in [facility] for full findings IMAGE PROTOCOL Rest/Stress 1 Lexiscan Day Radiopharmaceutical Dose (mCi) Administration Site Administered by Rest: Tc-99m 10.8 IV RUTH ANN Corona Sestamibi Stress:Tc-99m 32.7 IV RUTH ANN Corona Sestamibi Rest: 04-Jul-2022 60 Discovery 630 Stress: 04-Jul-2022 30 Discovery 630 0.4mg Lexiscan. Supine position only as patient was unable to lay prone. SPECT RESULTS Technical Quality: Excellent Raw Data Analysis: Normal Image Corrections: No attenuation or motion correction applied Summed Stress Score: 0 Summed Rest Score: 0 Summed Difference Score: 0 PERFUSION FINDINGS Uniform myocardial tracer uptake with no significant perfusion abnormalities FUNCTIONAL RESULTS (calculated via Gated SPECT) Stress Image LV EF (%): 61 Stress EDV (mL):97 TID: 0.76 Stress ESV (mL):38 FUNCTIONAL FINDINGS: Segmental wall motion analysis revealing no gross wall motion abnormalities IMPRESSIONS 1. Unremarkable Myocardial perfusion imaging. 2. Normal LV ejection fraction of 61%. 3. LV wall motion analysis revealing no gross wall motion abnormalities.. 4. Normal LV volume No similar previous studies are available for comparison Dr Alejandro Vides MD [facility] (Electronically Signed) Final Date: 04 Jul 2022 11:14 S
[2022-07-04 20:49] LABS: Glucose Point of Care 237 mg/dL (70-110)
[2022-07-04] MEDS: atorvastatin 40 mg Tablet PO (21:07)
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
--- NOTE | 2022-07-04 23:04 | PC.NURSE ---
Spoke with regarding renewing patients medications. renewed patients scheduled lyrica and DERIK Dillx. Day team to address DERIK Cheng.
[2022-07-05] MEDS: ALPRAZolam 0.5 mg Tablet PO
--- NOTE | 2022-07-05 | US_ITS ---
WS: [id number] ULTRASOUND SOFT TISSUES LEFT knee. HISTORY: LARGE LEFT KNEE EFFUSION, CONCERN FOR INFECTION COMPARISON: Radiograph 07/03/2022 TECHNIQUE: 2-D and color Doppler imaging is submitted. Patient is status post LEFT total knee prosthesis. There is no significant amount of fluid surroundin g the knee prosthesis. There is very mild soft tissue thickening. There is no suprapatellar joint eff usion. The radiograph from 07/03/2022 was also reviewed and revealed no significant amount of joint fluid. The re is soft tissue edema. No drainable collection. US/US soft tissue/extremity [id number] IMPRESSION: 1. No joint effusion LEFT knee. There was also no significant joint effusion i dentified on the radiographs performed on 07/03/2022. No aspiration will be perfo rmed. 2. Mild soft tissue edema but no focal collection.
[2022-07-05 04:00] VITALS: BP 145/85; PULSE 84; RESP 20; O2SAT 95
[2022-07-05 04:06] LABS: Basophils # 0.1 10^3/uL (0.0-0.1); Basophils % 0.6 %; Eosinophils # 0.2 10^3/uL (0.0-0.8); Eosinophils % 2.2 %; Hematocrit 39.2 % (42.0-52.0); Hemoglobin 12.3 g/dL (11.7-16.6); Lymphocytes # 2.1 10^3/uL (0.8-4.8); Lymphocytes % 25.5 %; Mean Corpuscular HGB Conc 31.4 g/dL (30.0-36.0); Mean Corpuscular Hemoglobin 27.2 pg (28.0-34.0); Mean Corpuscular Volume 86.7 fl (80-94); Mean Platelet Volume 10.3 fL (7.4-10.4); Monocytes # 0.6 10^3/uL (0.2-0.9); Monocytes % 7.1 %; Neutrophils # 5.29 10^3/uL (1.8-7.7); Neutrophils % 63.8 %; Nucleated Red Blood Cells % 0 %; Platelet Count 182 10^3/cmm (130-400); Red Blood Count 4.52 10^6/uL (4.1-5.3); Red Cell Distribution Width 13.2 % (12.1-15.1); White Blood Count 8.3 10^3/uL (4.0-10.0)
[2022-07-05 04:28] LABS: Alanine Aminotransferase 11 U/L (0-41); Alkaline Phosphatase 115 U/L (40-130); Anion Gap 12.8 (5-19); Aspartate Amino Transferase 14 U/L (0-40); Blood Urea Nitrogen 16 mg/dL (8-23); Calcium 9.1 mg/dL (8.5-10.5); Carbon Dioxide 27 mmol/L (22-29); Chloride 104 mmol/L (98-107); Globulin 3.6 g/dL (1.3-4.6); Glucose 201 mg/dL (65-115); Magnesium 1.9 mg/dL (1.7-2.3); Osmolality Calculated 297 mOsm/kg (285-295); Phosphorus 2.3 mg/dL (2.5-4.5); Potassium 3.8 mmol/L (3.5-5.1); Sodium 140 mmol/L (136-145); Total Bilirubin 0.2 mg/dL (0.15-1.2); Total Protein 6.6 g/dL (6.6-8.7)
[2022-07-05 05:27] VITALS: PULSE 82
[2022-07-05] MEDS: cefepime 2,000 MG in sodium chloride 0.9% (plus) 50 ML 100 MG IV ×2 (05:34→16:50)
[2022-07-05] MEDS: pantoprazole 40 mg SDV IVP (05:34)
[2022-07-05 06:13] LABS: Glucose Point of Care 197 mg/dL (70-110)
[2022-07-05 08:00] VITALS: BP 170/89; PULSE 88; PULSE 89; RESP 20; O2SAT 95
[2022-07-05] MEDS: sertraline 100 mg Tablet PO (08:43)
[2022-07-05] MEDS: fluconazole 100 mg Tablet 200 MG PO (08:43)
[2022-07-05] MEDS: buPROPion XL (24 HR) 150 mg Tablet 300 MG PO (08:43)
[2022-07-05] MEDS: memantine 5 mg tablet 10 MG PO ×2 (08:43→17:18)
[2022-07-05] MEDS: pregabalin 150 mg Capsule PO ×3 (08:43→21:38)
[2022-07-05] MEDS: aspirin 325 mg Tablet PO (08:43)
[2022-07-05] MEDS: fenofibrate 145 mg Tablet PO (08:44)
[2022-07-05] MEDS: apixaban 5 mg Tablet PO ×2 (08:44→17:18)
[2022-07-05] MEDS: insulin glargine 100 units/1 mL 10 UNIT SUBCUT ×2 (08:44→17:18)
[2022-07-05] MEDS: insulin lispro 100 unit/1 mL SUBCUT ×3 (08:44→17:18)
[2022-07-05 11:20] VITALS: BP 142/82; PULSE 80; RESP 20; TEMP 36.6; O2SAT 93
[2022-07-05 11:48] LABS: Glucose Point of Care 313 mg/dL (70-110)
--- NOTE | 2022-07-05 12:52 | PM.PN ---
Subjective Subjective: Patient reports continued left knee pain which limits mobility. Denies chest pain, fevers, chills, or nausea. Medications: Reviewed: Yes Vitals/I&O/Wt Last Vital Signs Temp 97.8 F 07/05/22 11:20 Pulse 80 07/05/22 11:20 Resp 20 H 07/05/22 11:20 BP 142/82 07/05/22 11:20 Pulse Ox 93 07/05/22 11:20 O2 Del Method Room Air 07/05/22 11:20 07/04/22 07/05/22 07/05/22 22:59 06:59 14:59 Intake Total 746.458 / 1396.458 530 / 1926.458 240 / 240 Output Total 1160 / 1910 1500 / 3410 600 / 600 Balance -413.542 / -513.542 -970 / -1483.542 -360 / -360 Physical Exam Narrative: General: Patient is awake. Alert. Pleasant. Sitting on edge of bed. Head: Normocephalic. Atraumatic. EOM intact. Neck: No JVD. Cardiovascular: RRR. No gallops. No murmurs. Lungs: Clear to auscultation, no use of accessory muscles, no crackles or wheezes. Skin: No jaundice. Large rash on buttocks, backs and upper inner legs. Abdomen: Normal bowel sounds, abdomen soft and nontender. Extremities: No cyanosis or clubbing. Musculoskeletal: Left knee swollen. TTP. Neurological: Moves all 4 extremities. No myoclonus. Urinary Catheter Management: Payne: Cath Placed During This Visit: no Reason for Continuing Indwelling Catheter: Acute Urinary Retention or Obstruction Data 07/05/22 03:48 07/05/22 03:48 A&P Assessment and plan (1) UTI (urinary tract infection): Outside records reviewed, ID @ [facility] recommended ceftriaxone x3 weeks however pt became septic on Rocephin Continue cefepime, will discharge on cefepime if no significant change in clinical course before d/c Qualifiers: Urinary tract infection type: acute cystitis (2) Elevated troponin: Associated with hx CAD w/ hx of CABG MPS unremarkable, presentation c/w acute myocardial injury Continue home apixaban Continue atorvastatin Continue aspirin (3) Knee pain: Associated with large joint effusion Imaging guided arthrocentesis requested (4) Pubic ramus fracture: Analgesics as needed WBAT (5) Dementia: High risk for delirium Continue Namenda Plan for outpatient referral to Dr Mayen at discharge (6) Diabetic peripheral neuropathy associated with type 2 diabetes mellitus: Glycemic control has been labile Son mentioned DKA while on Jardiance Continus Lantus 10 units BID SSI Avoid hypoglycemia Continue Lyrica (7) Anxiety and depression: Continue Xanax PRN Continue sertraline Continue wellbutrin (8) Gastroesophageal reflux disease: Continue PPI Qualifiers: Esophagitis presence: esophagitis presence not specified Qualified Code(s): K21.9 - Gastro-esophageal reflux disease without esophagitis (9) Hypertension: Home atenolol, HCTZ, and lisinopril on hold Restart beta elías, otherwise restart home antihypertensives as blood pressure improves Qualifiers: Hypertension type: essential hypertension Qualified Code(s): I10 - Essential (primary) hypertension (10) Back pain with history of spinal surgery: Continue home Soma, would probably benefit from weaning to alternative agent as outpatient Plan DVT ppx: Apixaban Code Status: Full Code Attestations Medical Necessity Statement*: Patient requires ongoing hospitalized medical care for IV abx, therapy, arthrocentesis, telemetry, and serial labs. Coding Level of Care Code Acute Code for Chg Fwd Diagnoses UTI (urinary tract infection) N39.0 Urinary tract infection type: acute cystitis Elevated troponin R77.8 Knee pain M25.569 Pubic ramus fracture S32.599A Dementia F03.90 Diabetic peripheral neuropathy associated with type 2 diabetes mellitus E11.42 Anxiety and depression F41.9; F32.9 Gastroesophageal reflux disease K21.9 Esophagitis presence: esophagitis presence not specified Hypertension I10 Hypertension type: essential hypertension Back pain with history of spinal surgery M54.9
[2022-07-05 15:40] VITALS: BP 150/85; PULSE 73; RESP 18; O2SAT 93
[2022-07-05 17:16] LABS: Glucose Point of Care 183 mg/dL (70-110)
--- NOTE | 2022-07-05 17:49 | P.PN_ITS ---
Subjective Subjective: The patient continues to feel okay with no recurrence of chest pain. Vital signs are remaining stable. No new arrhythmias on the monitor. Medications: Medication Review Details: Current Medications Acetaminophen (Acetaminophen 325 Mg Tablet) 650 mg PO Q6H PRN PRN Reason: Mild/Mod Pain Or Temp >/= 101 Hydrocodone Bitart/Acetaminophen (Hydrocodone-Acetaminophen 5-325 Mg Tablet) 1 tab PO Q6H PRN PRN Reason: back pain Last Admin: 07/04/22 03:26 Dose: 1 tab Alprazolam (Alprazolam 0.5 Mg Tablet) 0.5 mg PO BID PRN PRN Reason: ANXIETY Last Admin: 07/05/22 00:00 Dose: 0.5 mg Apixaban (Apixaban 5 Mg Tablet) 5 mg PO BID [facility] Last Admin: 07/05/22 17:18 Dose: 5 mg Aspirin (Aspirin 325 Mg Tablet) 325 mg PO DAILY [facility] Last Admin: 07/05/22 08:43 Dose: 325 mg Atorvastatin Calcium (Atorvastatin 40 Mg Tablet) 40 mg PO BEDTIME [facility] Last Admin: 07/04/22 21:07 Dose: 40 mg Bupropion HCl (Bupropion Xl (24 Hr) 150 Mg Tablet) 300 mg PO DAILY [facility] Last Admin: 07/05/22 08:43 Dose: 300 mg Dextrose (Dextrose 50% Syringe 50 Ml) 50 ml IVP PRN PRN; Protocol PRN Reason: hypoglycemia protocol Dextrose (Dextrose 50% Syringe 50 Ml) 25 ml IVP ONCE PRN; Protocol PRN Reason: hypoglycemia protocol Fenofibrate (Fenofibrate 145 Mg Tablet) 145 mg PO DAILY [facility] Last Admin: 07/05/22 08:44 Dose: 145 mg Fluconazole (Fluconazole 100 Mg Tablet) 200 mg PO DAILY [facility] Last Admin: 07/05/22 08:43 Dose: 200 mg Glucagon (Glucagon 1 Mg/Ml Inj 1 Ml) 1 mg IM ONCE PRN; Protocol PRN Reason: Adult Acute Hypoglycemia Prot. Dextrose (D5w) 500 mls @ 100 mls/hr IV ONCE PRN; Protocol PRN Reason: Adult Acute Hypoglycemia Prot Cefepime HCl 2,000 mg/ Sodium (Chloride) 50 mls @ 100 mls/hr IV Q12H DERREK; Protocol Last Admin: 07/05/22 16:50 Dose: 100 mls/hr Insulin Glargine (Insulin Glargine 100 Units/1 Ml) 10 unit SUBCUT BID [facility] Last Admin: 07/05/22 17:18 Dose: 10 unit Insulin Human Lispro (Insulin Lispro 100 Unit/1 Ml) 0 unit SUBCUT WM&BEDTIME [facility]; Protocol Last Admin: 07/05/22 17:18 Dose: 8 unit Memantine (Memantine 5 Mg Tablet) 10 mg PO BID [facility] Last Admin: 07/05/22 17:18 Dose: 10 mg Non-Formulary Medication (Mirabegron [Myrbetriq]) 50 mg PO DAILY [facility] Last Admin: 07/05/22 08:48 Dose: Not Given Ondansetron HCl (Ondansetron 2 Mg/Ml Sdv 2 Ml) 4 mg IVP Q8H PRN PRN Reason: vomiting, or N/V if npo Ondansetron HCl (Ondansetron 2 Mg/Ml Sdv 2 Ml) 4 mg IVP Q2M PRN PRN Reason: NAUSEA Pantoprazole Sodium (Pantoprazole 40 Mg Sdv) 40 mg IVP Q24H [facility] Last Admin: 07/05/22 05:34 Dose: 40 mg Pregabalin (Pregabalin 150 Mg Capsule) 150 mg PO TID [facility] Last Admin: 07/05/22 14:44 Dose: 150 mg Sertraline HCl (Sertraline 100 Mg Tablet) 100 mg PO DAILY [facility] Last Admin: 07/05/22 08:43 Dose: 100 mg Zinc Oxide (Zinc Oxide Oint 30 Gm) 1 applic TOPICAL PRN PRN PRN Reason: SKIN PROTECTANT Last Admin: 07/03/22 22:03 Dose: 1 applic Vitals/I&O/Wt Last Vital Signs Temp 97.8 F 07/05/22 11:20 Pulse 73 07/05/22 15:40 Resp 18 07/05/22 15:40 BP 150/85 07/05/22 15:40 Pulse Ox 93 07/05/22 15:40 O2 Del Method Room Air 07/05/22 15:40 07/05/22 07/05/22 07/05/22 06:59 14:59 22:59 Intake Total 530 / 1926.458 705 / 705 300 / 1005 Output Total 1500 / 3410 600 / 600 950 / 1550 Balance -970 / -1483.542 105 / 105 -650 / -545 Physical Exam Narrative: GENERAL: The patient is alert and oriented times three. Not in any acute distress. HEENT: No significant pallor, icterus or lymphadenopathy.Oral cavity: There are no mucous membrane lesions. NECK: Trachea appears to be central. No masses noted. No JVD or thyromegaly appreciated. RESPIRATORY: Chest is symmetrical. No intercostals muscle retraction or any accessory muscle activation. There is no chest wall tenderness. Breath sounds are heard bilaterally. No rales or rhonchi heard. No evidence of any consolidation. BREASTS: Deferred. HEART: The heart sounds are normal. No S3 or S4. Short systolic murmur in the lower sternal border. No diastolic murmurs.. No pericardial rub ABDOMEN: No vessel pulsations or distention. No tenderness. No organomegaly appreciated. Bowel sounds are normally heard. : Deferred. RECTAL: Deferred. LYMPHATIC: No lymphadenopathy noted in the neck. EXTREMITIES: No edema or cyanosis. No clubbing. MUSCULOSKELETAL: No acute joint deformities or swelling SKIN: There are no significant rashes or ecchymosis NEUROPSYCHIATRIC: The patient is alert and oriented x3. Appears to be in a good mood. No tremors or rigidity noted. Urinary Catheter Management: Payne: Cath Placed During This Visit: no Reason for Continuing Indwelling Catheter: Acute Urinary Retention or Obstruction Data 07/05/22 03:48 07/05/22 03:48 A&P Assessment and plan (1) Elevated troponin: 1 likely is a type II [place]. Currently has no evidence of ischemia, based on the perfusion scan. (2) Coronary artery disease involving coronary bypass graft of [place] heart: Patient has no specific symptoms of coronary insufficiency at this time. The Myocardial perfusion imaging findings were discussed with the patient detail which is understood well. We will continue on the current treatment measures (3) Hypertension: Currently normotensive. May continue on the current medications. Qualifiers: Hypertension type: essential hypertension Qualified Code(s): I10 - Essential (primary) hypertension (4) Diabetes: May continue on the current management. (5) Septic shock: Patient was treated with IV antibiotics. Currently the vital signs are stable. He is remaining afebrile. Plan Other problems are Dyslipidemia Pelvic fracture Patient may be continued on the current medications. Attestations Medical Necessity Statement*: Disposition as per the primary Coding Level of Care Code 41720 Diagnoses Elevated troponin R77.8 Coronary artery disease involving coronary bypass graft of [place] heart I25.810 Hypertension I10 Hypertension type: essential hypertension Diabetes E11.9 Septic shock A41.9; R65.21
[2022-07-05 20:00] VITALS: BP 131/59; PULSE 83; PULSE 85; RESP 20; TEMP 37; O2SAT 96
[2022-07-05] MEDS: atorvastatin 40 mg Tablet PO (21:38)
[2022-07-06] VITALS (9 sets, daily range): BP systolic 122–191; BP diastolic 70–91; PULSE 74–96; RESP 13–20; TEMP 36.4–37; O2SAT 93–100
[2022-07-06] MEDS: ALPRAZolam 0.5 mg Tablet PO (00:01)
[2022-07-06] MEDS: zinc oxide oint 30 gm 1 APPLIC TOPICAL (00:56)
[2022-07-06 04:25] LABS: Basophils # 0.1 10^3/uL (0.0-0.1); Basophils % 0.6 %; Eosinophils # 0.2 10^3/uL (0.0-0.8); Eosinophils % 2.8 %; Hematocrit 39.2 % (42.0-52.0); Hemoglobin 12.4 g/dL (11.7-16.6); Lymphocytes % 23.8 %; Mean Corpuscular HGB Conc 31.6 g/dL (30.0-36.0); Mean Corpuscular Hemoglobin 26.9 pg (28.0-34.0); Mean Platelet Volume 10.9 fL (7.4-10.4); Monocytes # 0.6 10^3/uL (0.2-0.9); Neutrophils # 5.46 10^3/uL (1.8-7.7); Neutrophils % 64.9 %; Nucleated Red Blood Cells % 0 %; Platelet Count 197 10^3/cmm (130-400); Red Blood Count 4.61 10^6/uL (4.1-5.3); Red Cell Distribution Width 13.4 % (12.1-15.1); White Blood Count 8.4 10^3/uL (4.0-10.0)
[2022-07-06 04:47] LABS: Albumin Level 3.1 g/dL (3.5-5.2); Anion Gap 15.9 (5-19); Blood Urea Nitrogen 18 mg/dL (8-23); Calcium 9.1 mg/dL (8.5-10.5); Carbon Dioxide 24 mmol/L (22-29); Chloride 101 mmol/L (98-107); Glucose 239 mg/dL (65-115); Magnesium 1.8 mg/dL (1.7-2.3); Phosphorus 2.6 mg/dL (2.5-4.5); Potassium 3.9 mmol/L (3.5-5.1); Sodium 137 mmol/L (136-145)
[2022-07-06] MEDS: cefepime 2,000 MG in sodium chloride 0.9% (plus) 50 ML 100 MG IV ×2 (05:49→17:35)
[2022-07-06] MEDS: pantoprazole 40 mg SDV IVP (05:49)
[2022-07-06 06:24] LABS: Glucose Point of Care 292 mg/dL (70-110)
[2022-07-06] MEDS: apixaban 5 mg Tablet PO ×2 (08:12→17:36)
[2022-07-06] MEDS: pregabalin 150 mg Capsule PO ×3 (08:12→20:31)
[2022-07-06] MEDS: buPROPion XL (24 HR) 150 mg Tablet 300 MG PO (08:13)
[2022-07-06] MEDS: fluconazole 100 mg Tablet 200 MG PO (08:13)
[2022-07-06] MEDS: fenofibrate 145 mg Tablet PO (08:13)
[2022-07-06] MEDS: sertraline 100 mg Tablet PO (08:13)
[2022-07-06] MEDS: aspirin 325 mg Tablet PO (08:13)
[2022-07-06] MEDS: insulin glargine 100 units/1 mL 10 UNIT SUBCUT ×2 (08:13→17:35)
[2022-07-06] MEDS: memantine 5 mg tablet 10 MG PO ×2 (08:13→17:34)
[2022-07-06] MEDS: insulin lispro 100 unit/1 mL SUBCUT ×4 (08:14→21:52)
--- NOTE | 2022-07-06 10:25 | CT_ITS ---
WS: [id number] CT LEFT KNEE, NONCONTRAST. HISTORY: pain/swelling Technique: All CT scans at [facility] use at least one of these dose optimization techniques: automated exposure control; mA and/or kV adjustment per patient size (includes targeted exams where dose is matched to clinical indication); or iterative reconstruction. DLP: 398.71 mGy.cm COMPARISON: Knee radiograph 07/03/2022 and ultrasound 07/05/2022. Patient is status post total knee arthroplasty. There is significant artifact from the arthroplasty. Components appear in good position alignment. No acute fractures are identified. There is a very smal l amount of fluid within the knee joint. Small amount of soft tissue edema. This fluid is not evident by ultrasound. Atherosclerotic calcifications noted in the popliteal artery. No aneurysm. There is not a significant amount of soft tissue inflammation. No well localized collection. CT/CT knee LT wo con* [id number] IMPRESSION: 1. Status post total knee arthroplasty which appears in good position and alig nment. 2. Small joint effusion. Not evident by the recent ultrasound. 3. No focal well organized collections.
--- NOTE | 2022-07-06 10:58 | PC.SOCIAL ---
Pg 2 IMM Explained pt on Pg 2 IMM. No questions voiced. Provided pt a copy. Initialed, dated, & timed a copy & placed in chart.
[2022-07-06 11:21] LABS: Glucose Point of Care 263 mg/dL (70-110)
[2022-07-06] MEDS: HYDROcodone-acetaminophen 5-325 mg Tablet 1 TAB PO (14:22)
--- NOTE | 2022-07-06 16:33 | PM.PN ---
Subjective Subjective: Patient endorses left knee swelling and pain. Denies fevers, chills, nausea or emesis. Reports he slept okay. Medications: Reviewed: Yes Vitals/I&O/Wt Last Vital Signs Temp 97.5 F L 07/06/22 12:44 Pulse 93 07/06/22 14:25 Resp 18 07/06/22 12:44 BP 132/78 07/06/22 12:44 Pulse Ox 93 07/06/22 14:25 O2 Del Method Room Air 07/06/22 14:25 07/06/22 07/06/22 07/06/22 06:59 14:59 22:59 Intake Total 170 / 1975 480 / 480 Output Total 1800 / 3350 700 / 700 Balance -1630 / -1375 -220 / -220 Weight last 48 hrs Weight 84.051 kg Physical Exam Narrative: General: Patient is awake. Alert. Lying in bed. Head: Normocephalic. Atraumatic. Neck: No JVD. Cardiovascular: RRR. No gallops. No murmurs. Lungs: Clear to auscultation, no use of accessory muscles, no crackles or wheezes. Skin: No jaundice. Large rash on buttocks, backs and upper inner legs. Abdomen: Normal bowel sounds, abdomen soft and nontender. Extremities: No cyanosis or clubbing. Musculoskeletal: Left knee swollen. TTP. Neurological: Moves all 4 extremities. No myoclonus. Urinary Catheter Management: Payne: Cath Placed During This Visit: no Reason for Continuing Indwelling Catheter: Acute Urinary Retention or Obstruction Data 07/06/22 03:48 07/06/22 03:48 Micro: Microbiology 07/01/22 02:42 Blood Culture - Final Blood NO GROWTH AFTER 5 DAYS 07/01/22 02:42 Blood Culture - Final Blood NO GROWTH AFTER 5 DAYS A&P Assessment and plan (1) UTI (urinary tract infection): Cultures remain negative Continue cefepime, prescription sent to home health Anticipate discharge this week Qualifiers: Urinary tract infection type: acute cystitis (2) Elevated troponin: Associated with hx CAD w/ hx of CABG MPS unremarkable, presentation c/w acute myocardial injury Continue apixaban Continue atorvastatin Continue aspirin (3) Knee pain: Son reports knee replacement is about 20 years old Apparently there was no joint effusion, x-ray read was poor Unable to have MRI due to bilateral hardware CT ordered Will likely need orthopedic follow-up (4) Pubic ramus fracture: Analgesics as needed WBAT (5) Dementia: High risk for delirium Continue Namenda Plan for outpatient referral to Dr Mayen at discharge (6) Diabetic peripheral neuropathy associated with type 2 diabetes mellitus: Glycemic control has been labile Son mentioned DKA while on Jardiance Continus Lantus 10 units BID SSI Avoid hypoglycemia Continue Lyrica (7) Anxiety and depression: Continue Xanax PRN Continue sertraline Continue wellbutrin (8) Gastroesophageal reflux disease: Continue PPI Qualifiers: Esophagitis presence: esophagitis presence not specified Qualified Code(s): K21.9 - Gastro-esophageal reflux disease without esophagitis (9) Hypertension: Restarting antihypertensives as indicated Qualifiers: Hypertension type: essential hypertension Qualified Code(s): I10 - Essential (primary) hypertension (10) Back pain with history of spinal surgery: Continue home Soma, would probably benefit from weaning to alternative agent as outpatient Plan DVT ppx: Apixaban Code Status: Full Code Attestations Medical Necessity Statement*: Patient requires ongoing hospitalization for CT imaging, IV antibiotics, therapy, and supportive care. Coding Level of Care Code Acute Code for [facility] Fwd Diagnoses UTI (urinary tract infection) N39.0 Urinary tract infection type: acute cystitis Elevated troponin R77.8 Knee pain M25.569 Pubic ramus fracture S32.599A Dementia F03.90 Diabetic peripheral neuropathy associated with type 2 diabetes mellitus E11.42 Anxiety and depression F41.9; F32.9 Gastroesophageal reflux disease K21.9 Esophagitis presence: esophagitis presence not specified Hypertension I10 Hypertension type: essential hypertension Back pain with history of spinal surgery M54.9
[2022-07-06 17:18] LABS: Glucose Point of Care 256 mg/dL (70-110)
[2022-07-06] MEDS: atorvastatin 40 mg Tablet PO (20:31)
[2022-07-06 20:50] LABS: Glucose Point of Care 412 mg/dL (70-110)
[2022-07-07] VITALS: BP 122/71; PULSE 74; RESP 16; TEMP 36.8; O2SAT 98
[2022-07-07 04:00] VITALS: BP 137/79; PULSE 78; RESP 18; TEMP 36.8; O2SAT 96
[2022-07-07 04:42] VITALS: PULSE 75
[2022-07-07] MEDS: pantoprazole 40 mg SDV IVP (05:40)
[2022-07-07] MEDS: cefepime 2,000 MG in sodium chloride 0.9% (plus) 50 ML 100 MG IV (05:40)
[2022-07-07 06:33] LABS: Glucose Point of Care 112 mg/dL (70-110)
[2022-07-07 07:41] VITALS: BP 109/67; PULSE 76; RESP 20; O2SAT 92
[2022-07-07] MEDS: aspirin 325 mg Tablet PO (08:52)
[2022-07-07] MEDS: memantine 5 mg tablet 10 MG PO (08:52)
[2022-07-07] MEDS: apixaban 5 mg Tablet PO (08:52)
[2022-07-07] MEDS: fluconazole 100 mg Tablet 200 MG PO (08:53)
[2022-07-07] MEDS: fenofibrate 145 mg Tablet PO (08:53)
[2022-07-07] MEDS: pregabalin 150 mg Capsule PO (08:53)
[2022-07-07] MEDS: buPROPion XL (24 HR) 150 mg Tablet 300 MG PO (08:53)
[2022-07-07] MEDS: sertraline 100 mg Tablet PO (08:53)
[2022-07-07] MEDS: insulin glargine 100 units/1 mL 10 UNIT SUBCUT (08:53)
[2022-07-07 09:14] VITALS: O2SAT 95
--- NOTE | 2022-07-07 09:17 | PM.PN ---
Subjective Subjective: Patient with no new symptoms Medications: Medication Review Details: Current Medications Acetaminophen (Acetaminophen 325 Mg Tablet) 650 mg PO Q6H PRN PRN Reason: Mild/Mod Pain Or Temp >/= 101 Hydrocodone Bitart/Acetaminophen (Hydrocodone-Acetaminophen 5-325 Mg Tablet) 1 tab PO Q6H PRN PRN Reason: back pain Last Admin: 07/06/22 14:22 Dose: 1 tab Alprazolam (Alprazolam 0.5 Mg Tablet) 0.5 mg PO BID PRN PRN Reason: ANXIETY Last Admin: 07/06/22 00:01 Dose: 0.5 mg Apixaban (Apixaban 5 Mg Tablet) 5 mg PO BID [facility] Last Admin: 07/07/22 08:52 Dose: 5 mg Aspirin (Aspirin 325 Mg Tablet) 325 mg PO DAILY [facility] Last Admin: 07/07/22 08:52 Dose: 325 mg Atorvastatin Calcium (Atorvastatin 40 Mg Tablet) 40 mg PO BEDTIME [facility] Last Admin: 07/06/22 20:31 Dose: 40 mg Bupropion HCl (Bupropion Xl (24 Hr) 150 Mg Tablet) 300 mg PO DAILY [facility] Last Admin: 07/07/22 08:53 Dose: 300 mg Dextrose (Dextrose 50% Syringe 50 Ml) 50 ml IVP PRN PRN; Protocol PRN Reason: hypoglycemia protocol Dextrose (Dextrose 50% Syringe 50 Ml) 25 ml IVP ONCE PRN; Protocol PRN Reason: hypoglycemia protocol Fenofibrate (Fenofibrate 145 Mg Tablet) 145 mg PO DAILY [facility] Last Admin: 07/07/22 08:53 Dose: 145 mg Fluconazole (Fluconazole 100 Mg Tablet) 200 mg PO DAILY [facility] Last Admin: 07/07/22 08:53 Dose: 200 mg Glucagon (Glucagon 1 Mg/Ml Inj 1 Ml) 1 mg IM ONCE PRN; Protocol PRN Reason: Adult Acute Hypoglycemia Prot. Dextrose (D5w) 500 mls @ 100 mls/hr IV ONCE PRN; Protocol PRN Reason: Adult Acute Hypoglycemia Prot Cefepime HCl 2,000 mg/ Sodium (Chloride) 50 mls @ 100 mls/hr IV Q12H [facility]; Protocol Last Infusion: 07/07/22 06:28 Dose: Infused Insulin Glargine (Insulin Glargine 100 Units/1 Ml) 10 unit SUBCUT BID [facility] Last Admin: 07/07/22 08:53 Dose: 10 unit Insulin Human Lispro (Insulin Lispro 100 Unit/1 Ml) 0 unit SUBCUT WM&BEDTIME [facility]; Protocol Last Admin: 07/07/22 07:41 Dose: Not Given Memantine (Memantine 5 Mg Tablet) 10 mg PO BID [facility] Last Admin: 07/07/22 08:52 Dose: 10 mg Non-Formulary Medication (Mirabegron [Myrbetriq]) 50 mg PO DAILY [facility] Last Admin: 07/07/22 08:57 Dose: Not Given Ondansetron HCl (Ondansetron 2 Mg/Ml Sdv 2 Ml) 4 mg IVP Q8H PRN PRN Reason: vomiting, or N/V if npo Ondansetron HCl (Ondansetron 2 Mg/Ml Sdv 2 Ml) 4 mg IVP Q2M PRN PRN Reason: NAUSEA Pantoprazole Sodium (Pantoprazole 40 Mg Sdv) 40 mg IVP Q24H [facility] Last Admin: 07/07/22 05:40 Dose: 40 mg Pregabalin (Pregabalin 150 Mg Capsule) 150 mg PO TID [facility] Last Admin: 07/07/22 08:53 Dose: 150 mg Sertraline HCl (Sertraline 100 Mg Tablet) 100 mg PO DAILY [facility] Last Admin: 07/07/22 08:53 Dose: 100 mg Zinc Oxide (Zinc Oxide Oint 30 Gm) 1 applic TOPICAL PRN PRN PRN Reason: SKIN PROTECTANT Last Admin: 07/06/22 00:56 Dose: 1 applic Vitals/I&O/Wt Last Vital Signs Temp 98.3 F 07/07/22 04:00 Pulse 76 07/07/22 07:41 Resp 20 H 07/07/22 07:41 BP 109/67 07/07/22 07:41 Pulse Ox 95 07/07/22 09:14 O2 Del Method Room Air 07/07/22 09:14 07/06/22 07/07/22 07/07/22 22:59 06:59 14:59 Intake Total 410 / 890 50 / 940 Output Total 800 / 1500 1800 / 3300 500 / 500 Balance -390 / -610 -1750 / -2360 -500 / -500 Weight last 48 hrs Weight 185 lb 4.8 oz Physical Exam Narrative: GENERAL: The patient is alert and oriented times three. Not in any acute distress. HEENT: No significant pallor, icterus or lymphadenopathy.Oral cavity: There are no mucous membrane lesions. NECK: Trachea appears to be central. No masses noted. No JVD or thyromegaly appreciated. RESPIRATORY: Chest is symmetrical. No intercostals muscle retraction or any accessory muscle activation. There is no chest wall tenderness. Breath sounds are heard bilaterally. No rales or rhonchi heard. No evidence of any consolidation. BREASTS: Deferred. HEART: The heart sounds are normal. No S3 or S4. Short systolic murmur in the lower sternal border. No diastolic murmurs.. No pericardial rub ABDOMEN: No vessel pulsations or distention. No tenderness. No organomegaly appreciated. Bowel sounds are normally heard. : Deferred. RECTAL: Deferred. LYMPHATIC: No lymphadenopathy noted in the neck. EXTREMITIES: No edema or cyanosis. No clubbing. MUSCULOSKELETAL: No acute joint deformities or swelling SKIN: There are no significant rashes or ecchymosis NEUROPSYCHIATRIC: The patient is alert and oriented x3. Appears to be in a good mood. No tremors or rigidity noted. Urinary Catheter Management: Payne: Cath Placed During This Visit: no Reason for Continuing Indwelling Catheter: Accurate Measurement of Urinary Output in Critically Ill Patients Data 07/06/22 03:48 07/06/22 03:48 Other Labs: Laboratory Last Values WBC 8.4 10^3/uL (4.0-10.0) 07/06/22 03:48 RBC 4.61 10^6/uL (4.1-5.3) 07/06/22 03:48 Hgb 12.4 g/dL (11.7-16.6) 07/06/22 03:48 Hct 39.2 % (42.0-52.0) L 07/06/22 03:48 MCV 85.0 fl (80-94) 07/06/22 03:48 MCH 26.9 pg (28.0-34.0) L 07/06/22 03:48 MCHC 31.6 g/dL (30.0-36.0) 07/06/22 03:48 RDW 13.4 % (12.1-15.1) 07/06/22 03:48 Plt Count 197 10^3/cmm (130-400) 07/06/22 03:48 MPV 10.9 fL (7.4-10.4) H 07/06/22 03:48 Neut % (Auto) 64.9 % 07/06/22 03:48 Lymph % (Auto) 23.8 % 07/06/22 03:48 Dick[place] % (Auto) 7.0 % 07/06/22 03:48 Eos % (Auto) 2.8 % 07/06/22 03:48 Baso % (Auto) 0.6 % 07/06/22 03:48 Neut # (Auto) 5.46 10^3/uL (1.8-7.7) 07/06/22 03:48 Lymph # (Auto) 2.0 10^3/uL (0.8-4.8) 07/06/22 03:48 [place] # (Auto) 0.6 10^3/uL (0.2-0.9) 07/06/22 03:48 Eos # (Auto) 0.2 10^3/uL (0.0-0.8) 07/06/22 03:48 Baso # (Auto) 0.1 10^3/uL (0.0-0.1) 07/06/22 03:48 Nucleated RBC % (auto) 0 % 07/06/22 03:48 Nucleated RBCs # 0.0 /100WBC 07/06/22 03:48 APTT 38.5 SECONDS (23.9-36.7) H 07/02/22 05:37 Specimen Type Arterial 07/01/22 01:48 Sample Site Radial, left 07/01/22 01:48 ABG pH 7.38 (7.35-7.45) 07/01/22 01:48 ABG pCO2 42.4 mmHg (35-45) 07/01/22 01:48 ABG pO2 60.2 mmHg (80.0-100.0) L 07/01/22 01:48 ABG HCO3 24.8 mmol/L (22-26) 07/01/22 01:48 ABG Base Excess -0.5 mmol/L (-2.0-2.0) 07/01/22 01:48 Shyam Test Pos 07/01/22 01:48 Hematocrit 36.9 % (42-52) L 07/01/22 01:48 O2 Delivery Device Room air 07/01/22 01:48 Nib Inspector ID [email or web address] 07/01/22 01:48 Sodium 137 mmol/L (136-145) 07/06/22 03:48 Potassium 3.9 mmol/L (3.5-5.1) 07/06/22 03:48 Chloride 101 mmol/L (98-107) 07/06/22 03:48 Carbon Dioxide 24 mmol/L (22-29) 07/06/22 03:48 Anion Gap 15.9 (5-19) 07/06/22 03:48 BUN 18 mg/dL (8-23) 07/06/22 03:48 Creatinine 0.7 mg/dL (0.7-1.2) 07/06/22 03:48 GFR Calculation Not Reportable 07/06/22 03:48 Glucose 239 mg/dL (65-115) H 07/06/22 03:48 POC Glucose 112 mg/dL (70-110) H 07/07/22 06:26 Estimat Average Glucose 223 07/02/22 05:37 Hemoglobin A1c 9.4 % (4.0-6.0) H 07/02/22 05:37 Calculated Osmolality 297 mOsm/kg (285-295) H 07/05/22 03:48 Lactic Acid 1.4 mmol/L (0.5-2.2) 07/01/22 00:55 Calcium 9.1 mg/dL (8.5-10.5) 07/06/22 03:48 Phosphorus 2.6 mg/dL (2.5-4.5) 07/06/22 03:48 Magnesium 1.8 mg/dL (1.7-2.3) 07/06/22 03:48 Iron 33 ug/dL (59-158) L 07/01/22 07:30 TIBC 152 mcg/dl 07/01/22 07:30 % Saturation 21.7 % (20-50) 07/01/22 07:30 Unsat Iron Binding 119 ug/dL (112-347) 07/01/22 07:30 Total Bilirubin 0.2 mg/dL (0.15-1.2) 07/05/22 03:48 AST 14 U/L (0-40) 07/05/22 03:48 ALT 11 U/L (0-41) 07/05/22 03:48 Alkaline Phosphatase 115 U/L (40-130) 07/05/22 03:48 Troponin T Gen 5 ng/L 74 ng/L (0-15) H 07/02/22 05:37 Troponin T Baseline 130 ng/L (0-15) H* 06/30/22 00:55 Troponin T 120 Minute 128.6 ng/L (0-15) H 07/01/22 02:42 Delta Troponin T -1.4 ABS# (0-10) L 07/01/22 02:42 Troponin T Hi Sens 6Hr 116.0 ng/L (0-15) H 07/01/22 07:30 Troponin T Hi Sens 6Hr Delta -14 ng/L (0-12) L 07/01/22 07:30 NT-Pro-B Natriuret Pep 882 pg/mL (0-450) H 06/30/22 07:30 Total Protein 6.6 g/dL (6.6-8.7) 07/05/22 03:48 Albumin 3.1 g/dL (3.5-5.2) L 07/06/22 03:48 Globulin 3.6 g/dL (1.3-4.6) 07/05/22 03:48 Triglycerides 124 mg/dL (0-150) 07/02/22 05:37 Cholesterol 89 mg/dL (0-200) 07/02/22 05:37 LDL Cholesterol, Calc 31 mg/dL (50-129) L 07/02/22 05:37 Total VLDL Cholesterol 25 mg/dL (0-30) 07/02/22 05:37 HDL Cholesterol 33 mg/dL (60-100) L 07/02/22 05:37 Cholesterol/HDL Ratio 2.70 mg/dL (1.0-5.00) 07/02/22 05:37 Vitamin B12 1168 pg/mL (232-1245) 07/01/22 07:30 Folate 14.4 ng/mL (4.5-32.2) 07/01/22 07:30 Procalcitonin 0.99 ng/mL (0-0.5) H 06/30/22 07:30 TSH 0.79 uIU/mL (0.27-4.20) 07/01/22 07:30 Urine Color Yellow (Yellow) 07/01/22 00:22 Urine Appearance Sl hazy (CLEAR) A 07/01/22 00:22 Urine pH 6 (5-7) 07/01/22 00:22 Ur Specific [place] 1.000 (1.005-1.030) L 07/01/22 00:22 Urine Protein 1+ (Negative) H 07/01/22 00:22 Urine Glucose (UA) 4+ (Normal) H 07/01/22 00:22 Urine Ketones Negative (Negative) 07/01/22 00:22 Urine Blood 2+ (Negative) H 07/01/22 00:22 Urine Nitrate Negative (Negative) 07/01/22 00:22 Urine Bilirubin Neg (Negative) 07/01/22 00:22 Urine Urobilinogen Norm mg/dL (Negative) 07/01/22 00:22 Ur Leukocyte Esterase 2+ (Negative) H 07/01/22 00:22 Urine RBC 5-10 /hpf (0-2) H 07/01/22 00:22 Urine WBC 25-40 /hpf (0-5) H 07/01/22 00:22 Ur Squamous Epith Cells 0-4 /hpf (0-5) H 07/01/22 00:22 Amorphous Sediment Not Reportable 07/01/22 00:22 Urine Bacteria Trace /hpf (NONE) 07/01/22 00:22 Urine Yeast 2+ /hpf H 07/01/22 00:22 Nasal Influ A H1 2008 PCR Not detected (NOT DETECT) 07/01/22 12:35 Serum Ketones Negative (Negative) 07/01/22 00:55 Adenovirus (PCR) Not detected (NOT DETECT) 07/01/22 12:35 C. pneumoniae DNA (PCR) Not detected (NOT DETECT) 07/01/22 12:35 Coronavirus 229E (PCR) Not detected (NOT DETECT) 07/01/22 12:35 Human Metapneumovir PCR Not detected (NOT DETECT) 07/01/22 12:35 Influenza A (H1) PCR Not detected (NOT DETECT) 07/01/22 12:35 Influenza A (H3) PCR Not detected (NOT DETECT) 07/01/22 12:35 Influenza Type A (PCR) Not detected (NOT DETECT) 07/01/22 12:35 Influenza Type B (PCR) Not detected (NOT DETECT) 07/01/22 12:35 M. pneumoniae (PCR) Not detected (NOT DETECT) 07/01/22 12:35 Parainfluenza 1 (PCR) Not detected (NOT DETECT) 07/01/22 12:35 Parainfluenza 2 (PCR) Not detected (NOT DETECT) 07/01/22 12:35 Parainfluenza 3 (PCR) Not detected (NOT DETECT) 07/01/22 12:35 Parainfluenza 4 (PCR) Not detected (NOT DETECT) 07/01/22 12:35 RSV Type A (PCR) Not detected (NOT DETECT) 07/01/22 12:35 RSV Type B (PCR) Not detected (NOT DETECT) 07/01/22 12:35 Entero/Rhino (PCR) Not detected (NOT DETECT) 07/01/22 12:35 SARS-CoV-2 (PCR) Not detected (NOT DETECT) 07/01/22 12:35 A&P Assessment and plan (1) Elevated troponin: 1 likely is a type II [place]. Currently has no evidence of ischemia, based on the perfusion scan. (2) Coronary artery disease involving coronary bypass graft of [place] heart: Patient has no specific symptoms of coronary insufficiency at this time. The Myocardial perfusion imaging findings were discussed with the patient detail which is understood well. We will continue on the current treatment measures (3) Hypertension: Currently normotensive. May continue on the current medications. Qualifiers: Hypertension type: essential hypertension Qualified Code(s): I10 - Essential (primary) hypertension (4) Diabetes: May continue on the current management. (5) Septic shock: Patient was treated with IV antibiotics. Currently the vital signs are stable. He is remaining afebrile. Plan Other problems are Dyslipidemia Pelvic fracture Patient may be continued on the current medications. Attestations Medical Necessity Statement*: Disposition as per the primary Coding Level of Care Code Acute Code for [facility] Fwd Diagnoses Elevated troponin R77.8 Coronary artery disease involving coronary bypass graft of [place] heart I25.810 Hypertension I10 Hypertension type: essential hypertension Diabetes E11.9 Septic shock A41.9; R65.21
[2022-07-07 10:59] VITALS: BP 120/63; PULSE 84; RESP 18; TEMP 37; O2SAT 90
[2022-07-07 11:14] LABS: Glucose Point of Care 356 mg/dL (70-110)
[2022-07-07] MEDS: insulin lispro 100 unit/1 mL SUBCUT (12:20)
--- NOTE | 2022-07-07 13:18 | P.DS_ITS ---
Discharge Providers Date of Admission: 07/01/22 04:23 Date of Discharge: July 07, 2022 Attending Provider at Admission: Stephen Guillen MD Attending Provider at Discharge: Branden Thomas MD Consults: Cardiology Orthopedics Primary Care Provider: Geoff Reno MD Diagnoses at Discharge Discharge Diagnosis (1) Elevated troponin: Status: Resolved (2) Coronary artery disease involving coronary bypass graft of [place] heart: Status: Inactive Permanent problem details: 2019 (3) Hypertension: Status: Inactive Qualifiers: Hypertension type: essential hypertension Qualified Code(s): I10 - Essential (primary) hypertension (4) Diabetes: Status: Deleted Permanent problem details: Labs in 3 months. Increase lantus by 10 units. (5) Septic shock: Status: Resolved Reason for Visit Reason for Visit: cp Hospital Course Hospital Course Dominick Cifuentes is a 77-year-old male with a past medical history significant for recent infection on IV ceftriaxone, urinary retention with chronic scherer, coronary artery disease with history of 5v CABG, and low back pain with history of fusion who presents with fall and worsening back pain. Per initial reports, patient complained of chest pain to EMS. Patient's history was found to often be unreliable likely secondary to his underlying dementia. Further work up revealed elevated troponin consistent with acute myocardial injury, urinary tract infection with negative culture, left knee pain/swelling, and pub ramus fracture. Patient started on broad spectrum antibiotics. Cultures remained negative likley due to patient already being on ceftriaxone prior to admission. Orthopedic surgery consulted and recommended weight bearing as tolerated for pelvic fracture. Due to patient reports of chest pain and elevated troponin, echocardiogram was obtained and abnormal prompting cardiology evaluation. Cardiology followed and patient underwent cardic stress testing which was negative for evidence of reversible ischemia. He was also found to have a large rash on his back for which he was treated with supportive care and antifungal. His symptoms improved. He was discharged to home in stable condition. He is to follow up with orthopedics for his knee pain. Patient referred to neurology to evaluate patient's dementia. Physical Exam Narrative: General: Patient is awake.? Alert.? Lying in bed. No acute distress. Head:? Normocephalic. Atraumatic. Neck: No JVD. Cardiovascular: RRR. No gallops. No murmurs. Lungs: Clear to auscultation, no use of accessory muscles, no crackles or wheezes. Skin: No jaundice. Rash on buttocks, backs and upper inner legs. Abdomen: Normal bowel sounds, abdomen soft and nontender. Extremities: No cyanosis or clubbing. Musculoskeletal: Left knee swollen.? TTP. Neurological: Moves all 4 extremities. No myoclonus. Urinary Catheter Management: Scherer: Cath Placed During This Visit: no Reason for Continuing Indwelling Catheter: Accurate Measurement of Urinary Output in Critically Ill Patients Discharge Data Studies Completed and Pending Completed Studies During Hospitalization Category Date Time Status CT abdomen pelvis wo con [id number] Stat Cat Scan 07/01/22 05:[address] angio chest PE protcl [id number] Stat Cat Scan 07/01/22 05:[address] knee LT wo con* [id number] Routine Cat Scan 07/06/22 10:25 Completed Cardiac Stress Test MIBI [Sestamibi Stress Test Request Exams 07/03/22 19:34 Completed ] Routine XR chest 1V [id number] Stat Exams 06/30/22 23:56 Completed XR knee LT 3V* [id number] Routine Exams 07/03/22 11:41 Completed NM endy perf SPECT r/s* [id number] Routine Nuc Med 07/04/22 19:34 [place] [id number] Routine Ultrasound 07/01/22 06:52 Completed CV. echo complete* [id number] Routine Ultrasound 07/01/22 06:52 Completed US soft tissue/extremity [id number] Routine Ultrasound 07/05/22 Completed Pending at discharge Category Date Time Status Cyto Order Verification Routine Lab 07/05/22 09:19 Ordered Synovial Fluid Analysis Routine Lab 07/05/22 09:19 Ordered Radiology Impressions Chest X-Ray 06/30/22 23:56 IMPRESSION: Mild left basilar atelectasis and/or pneumonia. Abdomen/Pelvis CT 07/01/22 05:36 IMPRESSION: 1. Acute fractures of the left distal superior and inferior pubic rami with diastasis of the pubic symphysis. 2. No obstructive uropathy. Nonobstructive stone in the left kidney. 3. Dilated stool-filled rectum measuring 8.5 cm diameter. No sign of stercoral colitis. 4. Increased size of left adrenal nodule since 03/24/2019. If the patient has no cancer history, then consider follow-up non-emergent adrenal CT or resection. If the patient has a history of cancer, then consider biopsy or PET/CT. (Reference: Zev) 5. Incidental findings above. COMMENTS: Consistent with the [employer]'s Incidental Findings Committee white paper (J Am Lily Radiol 2018): Any incidental renal lesion less than 1 cm or classified as too small to characterize, or any incidental cystic renal lesion characterized as simple-appearing, is likely benign. No follow-up imaging is recommended for these lesions per consensus recommendations based on imaging criteria. REFERENCES: Zev ALBERTS, et al. Management of Incidental Adrenal Masses: A White Paper of the ACR Incidental Findings Committee. J Am Lily Radiol. 2017;14(8):5569-4827. Chest CTA 07/01/22 05:43 IMPRESSION: 1. No pulmonary embolism. 2. Clustered nodules and ground-glass opacities in the superior segment of the left lower lobe consistent with an infection or inflammatory process. 3. Tracheobronchomalacia. 4. Dominant 11 mm left lower lobe nodule requires follow-up. For patients at low risk (minimal or absent history of smoking and of other known risk factors), recommend CT Chest at 3-6 months, then consider CT Chest at 18-24 months. For patients at high risk (history of smoking or of other known risk factors), recommend CT Chest at 3-6 months, then CT Chest at 18-24 months. (Reference: Sukh) 5. Incidental findings above. REFERENCES: Sukh Waller, et al. Guidelines for Management of Incidental Pulmonary Nodules Detected on CT Images: From the Fleischner Society 2017. Radiology. 2017;284(1):228-243. Venous Duplex 07/01/22 06:52 IMPRESSION: No evidence for deep venous thrombosis in the right or left lower extremities. Knee X-Ray 07/03/22 11:41 IMPRESSION: Prominent joint effusion, along with intra-articular calcifications. Soft Tissue Ultrasound 07/05/22 00:00 IMPRESSION: 1. No joint effusion LEFT knee. There was also no significant joint effusion identified on the radiographs performed on 07/03/2022. No aspiration will be performed. 2. Mild soft tissue edema but no focal collection. Knee CT 07/06/22 10:25 IMPRESSION: 1. Status post total knee arthroplasty which appears in good position and alignment. 2. Small joint effusion. Not evident by the recent ultrasound. 3. No focal well organized collections. Laboratory Results WBC 8.4 10^3/uL (4.0-10.0) 07/06/22 03:48 RBC 4.61 10^6/uL (4.1-5.3) 07/06/22 03:48 Hgb 12.4 g/dL (11.7-16.6) 07/06/22 03:48 Hct 39.2 % (42.0-52.0) L 07/06/22 03:48 MCV 85.0 fl (80-94) 07/06/22 03:48 MCH 26.9 pg (28.0-34.0) L 07/06/22 03:48 MCHC 31.6 g/dL (30.0-36.0) 07/06/22 03:48 RDW 13.4 % (12.1-15.1) 07/06/22 03:48 Plt Count 197 10^3/cmm (130-400) 07/06/22 03:48 MPV 10.9 fL (7.4-10.4) H 07/06/22 03:48 Neut % (Auto) 64.9 % 07/06/22 03:48 Lymph % (Auto) 23.8 % 07/06/22 03:48 Dickinson % (Auto) 7.0 % 07/06/22 03:48 Eos % (Auto) 2.8 % 07/06/22 03:48 Baso % (Auto) 0.6 % 07/06/22 03:48 Neut # (Auto) 5.46 10^3/uL (1.8-7.7) 07/06/22 03:48 Lymph # (Auto) 2.0 10^3/uL (0.8-4.8) 07/06/22 03:48 Dickinson # (Auto) 0.6 10^3/uL (0.2-0.9) 07/06/22 03:48 Eos # (Auto) 0.2 10^3/uL (0.0-0.8) 07/06/22 03:48 Baso # (Auto) 0.1 10^3/uL (0.0-0.1) 07/06/22 03:48 Nucleated RBC % (auto) 0 % 07/06/22 03:48 Nucleated RBCs # 0.0 /100WBC 07/06/22 03:48 APTT 38.5 SECONDS (23.9-36.7) H 07/02/22 05:37 Specimen Type Arterial 07/01/22 01:48 Sample Site Radial, left 07/01/22 01:48 ABG pH 7.38 (7.35-7.45) 07/01/22 01:48 ABG pCO2 42.4 mmHg (35-45) 07/01/22 01:48 ABG pO2 60.2 mmHg (80.0-100.0) L 07/01/22 01:48 ABG HCO3 24.8 mmol/L (22-26) 07/01/22 01:48 ABG Base Excess -0.5 mmol/L (-2.0-2.0) 07/01/22 01:48 Shyam Test Pos 07/01/22 01:48 Hematocrit 36.9 % (42-52) L 07/01/22 01:48 O2 Delivery Device Room air 07/01/22 01:48 Computer Terminal Operator ID [email or web address] 07/01/22 01:48 Sodium 137 mmol/L (136-145) 07/06/22 03:48 Potassium 3.9 mmol/L (3.5-5.1) 07/06/22 03:48 Chloride 101 mmol/L (98-107) 07/06/22 03:48 Carbon Dioxide 24 mmol/L (22-29) 07/06/22 03:48 Anion Gap 15.9 (5-19) 07/06/22 03:48 BUN 18 mg/dL (8-23) 07/06/22 03:48 Creatinine 0.7 mg/dL (0.7-1.2) 07/06/22 03:48 GFR Calculation Not Reportable 07/06/22 03:48 Glucose 239 mg/dL (65-115) H 07/06/22 03:48 POC Glucose 356 mg/dL (70-110) H 07/07/22 10:57 Estimat Average Glucose 223 07/02/22 05:37 Hemoglobin A1c 9.4 % (4.0-6.0) H 07/02/22 05:37 Calculated Osmolality 297 mOsm/kg (285-295) H 07/05/22 03:48 Lactic Acid 1.4 mmol/L (0.5-2.2) 07/01/22 00:55 Calcium 9.1 mg/dL (8.5-10.5) 07/06/22 03:48 Phosphorus 2.6 mg/dL (2.5-4.5) 07/06/22 03:48 Magnesium 1.8 mg/dL (1.7-2.3) 07/06/22 03:48 Iron 33 ug/dL (59-158) L 07/01/22 07:30 TIBC 152 mcg/dl 07/01/22 07:30 % Saturation 21.7 % (20-50) 07/01/22 07:30 Unsat Iron Binding 119 ug/dL (112-347) 07/01/22 07:30 Total Bilirubin 0.2 mg/dL (0.15-1.2) 07/05/22 03:48 AST 14 U/L (0-40) 07/05/22 03:48 ALT 11 U/L (0-41) 07/05/22 03:48 Alkaline Phosphatase 115 U/L (40-130) 07/05/22 03:48 Troponin T Gen 5 ng/L 74 ng/L (0-15) H 07/02/22 05:37 Troponin T Baseline 130 ng/L (0-15) H* 06/30/22 00:55 Troponin T 120 Minute 128.6 ng/L (0-15) H 07/01/22 02:42 Delta Troponin T -1.4 ABS# (0-10) L 07/01/22 02:42 Troponin T Hi Sens 6Hr 116.0 ng/L (0-15) H 07/01/22 07:30 Troponin T Hi Sens 6Hr Delta -14 ng/L (0-12) L 07/01/22 07:30 NT-Pro-B Natriuret Pep 882 pg/mL (0-450) H 06/30/22 07:30 Total Protein 6.6 g/dL (6.6-8.7) 07/05/22 03:48 Albumin 3.1 g/dL (3.5-5.2) L 07/06/22 03:48 Globulin 3.6 g/dL (1.3-4.6) 07/05/22 03:48 Triglycerides 124 mg/dL (0-150) 07/02/22 05:37 Cholesterol 89 mg/dL (0-200) 07/02/22 05:37 LDL Cholesterol, Calc 31 mg/dL (50-129) L 07/02/22 05:37 Total VLDL Cholesterol 25 mg/dL (0-30) 07/02/22 05:37 HDL Cholesterol 33 mg/dL (60-100) L 07/02/22 05:37 Cholesterol/HDL Ratio 2.70 mg/dL (1.0-5.00) 07/02/22 05:37 Vitamin B12 1168 pg/mL (232-1245) 07/01/22 07:30 Folate 14.4 ng/mL (4.5-32.2) 07/01/22 07:30 Procalcitonin 0.99 ng/mL (0-0.5) H 06/30/22 07:30 TSH 0.79 uIU/mL (0.27-4.20) 07/01/22 07:30 Urine Color Yellow (Yellow) 07/01/22 00:22 Urine Appearance Sl hazy (CLEAR) A 07/01/22 00:22 Urine pH 6 (5-7) 07/01/22 00:22 Ur Specific [place] 1.000 (1.005-1.030) L 07/01/22 00:22 Urine Protein 1+ (Negative) H 07/01/22 00:22 Urine Glucose (UA) 4+ (Normal) H 07/01/22 00:22 Urine Ketones Negative (Negative) 07/01/22 00:22 Urine Blood 2+ (Negative) H 07/01/22 00:22 Urine Nitrate Negative (Negative) 07/01/22 00:22 Urine Bilirubin Neg (Negative) 07/01/22 00: Urine Urobilinogen Norm mg/dL (Negative) 07/01/22 00:22 Ur Leukocyte Esterase 2+ (Negative) H 07/01/22 00:22 Urine RBC 5-10 /hpf (0-2) H 07/01/22 00:22 Urine WBC 25-40 /hpf (0-5) H 07/01/22 00:22 Ur Squamous Epith Cells 0-4 /hpf (0-5) H 07/01/22 00:22 Amorphous Sediment Not Reportable 07/01/22 00:22 Urine Bacteria Trace /hpf (NONE) 07/01/22 00:22 Urine Yeast 2+ /hpf H 07/01/22 00:22 Nasal Influ A H1 2009 PCR Not detected (NOT DETECT) 07/01/22 12:35 Serum Ketones Negative (Negative) 07/01/22 00:55 Adenovirus (PCR) Not detected (NOT DETECT) 07/01/22 12:35 C. pneumoniae DNA (PCR) Not detected (NOT DETECT) 07/01/22 12:35 Coronavirus 229E (PCR) Not detected (NOT DETECT) 07/01/22 12:35 Human Metapneumovir PCR Not detected (NOT DETECT) 07/01/22 12:35 Influenza A (H1) PCR Not detected (NOT DETECT) 07/01/22 12:35 Influenza A (H3) PCR Not detected (NOT DETECT) 07/01/22 12:35 Influenza Type A (PCR) Not detected (NOT DETECT) 07/01/22 12:35 Influenza Type B (PCR) Not detected (NOT DETECT) 07/01/22 12:35 M. pneumoniae (PCR) Not detected (NOT DETECT) 07/01/22 12:35 Parainfluenza 1 (PCR) Not detected (NOT DETECT) 07/01/22 12:35 Parainfluenza 2 (PCR) Not detected (NOT DETECT) 07/01/22 12:35 Parainfluenza 3 (PCR) Not detected (NOT DETECT) 07/01/22 12:35 Parainfluenza 4 (PCR) Not detected (NOT DETECT) 07/01/22 12:35 RSV Type A (PCR) Not detected (NOT DETECT) 07/01/22 12:35 RSV Type B (PCR) Not detected (NOT DETECT) 07/01/22 12:35 Entero/Rhino (PCR) Not detected (NOT DETECT) 07/01/22 12:35 SARS-CoV-2 (PCR) Not detected (NOT DETECT) 07/01/22 12:35 Procedures Performed None Vitals Last Vital Signs Temp 98.6 F 07/07/22 10:59 Pulse 84 07/07/22 10:59 Resp 18 07/07/22 10:59 BP 120/63 07/07/22 10:59 Pulse Ox 90 07/07/22 10:59 O2 Del Method Room Air 07/07/22 10:59 Discharge Plan Discharge Patient Disposition: Home Health Service Condition: Stable Prescriptions: New Seroquel 25 mg tablet 25 mg PO BEDTIME 30 Days Qty: 30 1RF atorvastatin 80 mg tablet 80 mg PO BEDTIME Qty: 30 1RF metoprolol tartrate 50 mg tablet 50 mg PO BID Qty: 60 1RF fluconazole 200 mg tablet 200 mg PO DAILY 12 Days Qty: 12 0RF zinc oxide 20 % ointment 1 applic topical TID PRN (Reason: skin irritation) Qty: 85 1RF Continued (DME) Power wheel chair See Rx Instructions .Route .MEDSUPPLY Qty: 1 0RF Rx Instructions: As directed aspirin 325 mg tablet 325 mg PO DAILY ondansetron 8 mg tablet,disintegrating 8 mg PO Q8H PRN (Reason: nausea and vomiting) Qty: 9 0RF pregabalin [Lyrica] 150 mg capsule 150 mg PO TID Qty: 270 2RF memantine [Namenda] 10 mg tablet 10 mg PO BID Qty: 180 4RF (DME) insulin syringe-needle U-100 [Advocate Syringes] 1 mL 31 gauge x 5/16 syringe See Rx Instructions .ROUTE .MEDSUPPLY Qty: 200 1RF Rx Instructions: As directed fenofibrate nanocrystallized 145 mg tablet See Rx Instructions .ROUTE .COMPLEX Qty: 90 3RF Dose Instruction: TAKE 1 TABLET DAILY Rx Instructions: TAKE 1 TABLET DAILY famotidine 40 mg tablet See Rx Instructions .ROUTE .COMPLEX Qty: 180 3RF Dose Instruction: TAKE 1 TABLET TWICE A DAY Rx Instructions: TAKE 1 TABLET TWICE A DAY bupropion HCl 150 mg tablet extended release 24 hr See Rx Instructions .ROUTE .COMPLEX Qty: 240 3RF Dose Instruction: TAKE 2 TABLETS ONCE DAILY IN THE MORNING Rx Instructions: TAKE 2 TABLETS ONCE DAILY IN THE MORNING Novolin R Regular U-100 Insuln 100 unit/mL solution See Rx Instructions .ROUTE .COMPLEX Qty: 30 4RF Dose Instruction: INJECT 25 UNITS UNDER THE SKIN DIRECTED PER SLIDING SCALE. MAX 75 UNITS A DAY Rx Instructions: INJECT 25 UNITS UNDER THE SKIN DIRECTED PER SLIDING SCALE. MAX 75 UNITS A DAY sertraline 100 mg tablet See Rx Instructions .ROUTE .COMPLEX Qty: 90 3RF Dose Instruction: TAKE 1 TABLET DAILY, CONTINUE TAKING WITH WELLBUTRIN Rx Instructions: TAKE 1 TABLET DAILY, CONTINUE TAKING WITH WELLBUTRIN (DME) pen needle, diabetic [Sure Comfort Pen Needle] 31 gauge x 3/16 needle See Rx Instructions .ROUTE .COMPLEX Qty: 200 5RF Dose Instruction: USE DIRECTED Rx Instructions: USE DIRECTED carisoprodol 350 mg tablet 350 mg PO TID Qty: 90 2RF Trulicity 0.75 mg/0.5 mL pen injector 0.75 mg SUBCUT .weekly Qty: 2 5RF ezetimibe 10 mg tablet See Rx Instructions .ROUTE .COMPLEX Qty: 90 1RF Dose Instruction: TAKE 1 TABLET DAILY (NEED APPOINTMENT FOR FURTHER REFILLS) Rx Instructions: TAKE 1 TABLET DAILY lisinopril-hydrochlorothiazide 20-12.5 mg tablet See Rx Instructions .ROUTE .COMPLEX Qty: 90 3RF Dose Instruction: TAKE 1 TABLET DAILY (NEED APPOINTMENT) Rx Instructions: TAKE 1 TABLET DAILY (NEED APPOINTMENT) (DME) insulin syringe-needle U-100 [BD Insulin Syringe Ultra-Fine] 1 mL 31 gauge x 5/16 syringe See Rx Instructions .Route Qty: 100 4RF Rx Instructions: As directed diltiazem HCl 240 mg capsule,extended release 24 hr 240 mg PO DAILY Qty: 90 0RF ergocalciferol (vitamin D2) 1,250 mcg (50,000 unit) capsule See Rx Instructions .ROUTE .COMPLEX Qty: 16 0RF Dose Instruction: take one capsule by mouth every week. Rx Instructions: take one capsule by mouth every week. alprazolam 0.5 mg tablet 0.5 mg PO BID Qty: 60 2RF hydrocodone-acetaminophen 5-325 mg tablet 1 tab PO Q6H 20 Days Qty: 80 0RF nitroglycerin 0.4 mg Tablet, Sublingual 0.4 mg SUBLINGUAL Q5M PRN (Reason: Chest Pain) Lantus Solostar U-100 Insulin 100 unit/mL (3 mL) insulin pen See Rx Instructions .ROUTE .COMPLEX Rx Instructions: 40units in the morning and 65 units at hs Myrbetriq 50 mg tablet extended release 24 hr 50 mg PO DAILY Eliquis 5 mg Tablet 5 mg PO BID Trulicity 1.5 mg/0.5 mL Pen Injector 1.5 mg SUBCUT DIRECTED Rx Instructions: Patient takes every saturday. Discontinued nitroglycerin 6.5 mg capsule, extended release 6.5 mg PO BID Qty: 180 1RF Jardiance 25 mg tablet See Rx Instructions .ROUTE .COMPLEX Qty: 90 3RF Dose Instruction: TAKE 1 TABLET DAILY Rx Instructions: TAKE 1 TABLET DAILY atenolol 100 mg tablet 100 mg PO DAILY atorvastatin 20 mg tablet 20 mg PO DAILY Discharge Orders: Discharge Order (Routine); Ordered 07/07/22 Ordered By: Branden Thomas Other Ambulatory Orders: DME: Miscellaneous (Order) Location: None Selected Ordered By: Branden Thomas Referrals: [facility] [Other] [facility] [Outside] ([facility] is providing your IV antibiotics. If you have any questions or concerns please reach out to them at [phone].) Timothy Mayen MD [Physician] - 1 week (Further dementia work up and treatment. Call clinic on saturday to schedule an appointment ) Geoff Reno MD [Primary Care Provider] - 07/13/22 2:25 pm Ting Billy MD [Physician] - 1 week (Severe left knee pain and swelling, remote hx of knee replacement. Call clinic saturday to schedule an appointment) Casie Vitale MD [Physician] - (Please call saturday and make a follow up appointment for 4-7 days) Discharge Diet: Advance as tolerated, Cardiac and Diabetic Discharge Activity: Increase activity as tolerated and As per PT/OT instructions Patient Instructions: Metoprolol (By mouth) (Lopressor, Toprol XL), Fluconazole (By mouth) (Diflucan), Atorvastatin (By mouth) (Lipitor), Zinc Oxide (On the skin) (Aveeno Baby Essential Daily Care, Balmex,..., Urinary Tract Infection in Men (DC), How to Prevent Pressure Injuries (DC), Sepsis (DC), Chronic Wounds (DC), Chest Pain Stoplight, Opioid Safety, Wound Care (General) Plan of Treatment: 1. Increase activity as tolerated with assistance. 2. Take medications as prescribed. 3. Follow up with providers as ordered. Discharge Attestations Time Spent in Discharge Care*: greater than 30 min Status at Discharge: Overall status at discharge: patient is progressing back to baseline Quality Metrics Clinical Quality Measures [ No reported AMI, CVA or VTE this stay] Coding Level of Care Code Acute Code for Chg Fwd Diagnoses Elevated troponin R77.8 Coronary artery disease involving coronary bypass graft of [place] heart I25.810 Hypertension I10 Hypertension type: essential hypertension Diabetes E11.9 Septic shock A41.9; R65.21
--- NOTE | 2022-07-07 13:58 | PC.NURSE ---
Discharge to home w/home health services Informed son and pt that his new Rx are sent to [facility] pharmacy. Picc Line intact. Robles catheter in place. stat lock changed. Aleta cares provided to pt.
== END 2022-07-07 13:59 | disposition home health service (06) | DRG 871 ==
LOC: ER 07-01 04:08 → ICU 07-01 04:49 → CSU 07-01 16:37
PROVIDERS: Emergency Medicine; Student in an Organized Health Care Education/Training Program; Admitting Provider Family Medicine; Emergency Provider Physician Assistant; PCP Family Medicine; Visit Provider Internal Medicine
DX: A41.9 Sepsis, unspecified organism (principal); I21.A1 Myocardial infarction type 2; R65.21 Severe sepsis with septic shock; N30.00 Acute cystitis without hematuria; I25.810 Atherosclerosis of coronary artery bypass graft(s) without angina pectoris; R21 Rash and other nonspecific skin eruption; M25.462 Effusion, left knee; F03.90 Unspecified dementia, unspecified severity, without behavioral disturbance, psychotic disturbance, mood disturbance, and anxiety; G89.29 Other chronic pain; M54.9 Dorsalgia, unspecified; R33.9 Retention of urine, unspecified; K21.9 Gastro-esophageal reflux disease without esophagitis; F32.A Depression, unspecified; F41.9 Anxiety disorder, unspecified; R03.1 Nonspecific low blood-pressure reading; S32.512D Fracture of superior rim of left pubis, subsequent encounter for fracture with routine healing; W19.XXXD Unspecified fall, subsequent encounter; E11.42 Type 2 diabetes mellitus with diabetic polyneuropathy; E11.65 Type 2 diabetes mellitus with hyperglycemia; I10 Essential (primary) hypertension; E78.5 Hyperlipidemia, unspecified; Z66 Do not resuscitate; Z96.0 Presence of urogenital implants; Z96.653 Presence of artificial knee joint, bilateral; Z74.01 Bed confinement status; Z79.01 Long term (current) use of anticoagulants; Z79.4 Long term (current) use of insulin; Z79.85 Long-term (current) use of injectable non-insulin antidiabetic drugs; Z87.891 Personal history of nicotine dependence
CPT/HCPCS: 36415; 36416; 36600; 71045; 71275; 73562; 73700; 74176; 76882; 78452; 80053; 80061; 80069; 81001; 82009; 82607; 82746; 82803; 82962; 83036; 83540; 83550; 83605; 83735; 83880; 84100; 84145; 84443; 84484; 85025; 85730; 87040; 87086; 87486; 87581; 87633; 87641; 93005; 93017; 93306; 93970; 94664; 96361; 96365; 96372; 96374; 96375; 96376; 97110; 97116; 97161; 97165; 97530; 99285; A9500; C9113; J0692; J0713; J1644; J1815; J2543; J2785; J7030; Q9967

== ENCOUNTER 2022-07-09 13:41 | Outpatient (CLI) | payer MEDICARE, OTHER, SELFPAY ==
[2022-07-09 14:12] LABS: Basophils # 0.1 10^3/uL (0.0-0.1); Basophils % 0.7 %; Eosinophils # 0.4 10^3/uL (0.0-0.8); Eosinophils % 3.6 %; Hematocrit 39.4 % (42.0-52.0); Hemoglobin 12.4 g/dL (11.7-16.6); Lymphocytes # 2.6 10^3/uL (0.8-4.8); Lymphocytes % 24.6 %; Mean Corpuscular HGB Conc 31.5 g/dL (30.0-36.0); Mean Corpuscular Volume 85.8 fl (80-94); Mean Platelet Volume 11.5 fL (7.4-10.4); Monocytes # 0.9 10^3/uL (0.2-0.9); Monocytes % 8.1 %; Neutrophils # 6.47 10^3/uL (1.8-7.7); Neutrophils % 61.9 %; Nucleated Red Blood Cells % 0 %; Platelet Count 218 10^3/cmm (130-400); Red Blood Count 4.59 10^6/uL (4.1-5.3); Red Cell Distribution Width 14.6 % (12.1-15.1); White Blood Count 10.5 10^3/uL (4.0-10.0)
[2022-07-09 14:37] LABS: Alanine Aminotransferase 14 U/L (0-41); Albumin Level 3.2 g/dL (3.5-5.2); Alkaline Phosphatase 107 U/L (40-130); Blood Urea Nitrogen 36 mg/dL (8-23); Carbon Dioxide 25 mmol/L (22-29); Chloride 104 mmol/L (98-107); Globulin 3.1 g/dL (1.3-4.6); Glucose 90 mg/dL (65-115); Osmolality Calculated 300 mOsm/kg (285-295); Sodium 141 mmol/L (136-145); Total Bilirubin 0.2 mg/dL (0.15-1.2); Total Protein 6.3 g/dL (6.6-8.7)
[2022-07-09 14:39] LABS: Anion Gap 16.3 (5-19); Aspartate Amino Transferase 20 U/L (0-40); Potassium 4.3 mmol/L (3.5-5.1)
== END 2022-07-09 13:42 | disposition home or self-care (01) ==
LOC: LAB 13:55
PROVIDERS: PCP Family Medicine; Visit Provider Internal Medicine Infectious Disease
DX: Z01.89 Encounter for other specified special examinations (principal)
CPT/HCPCS: 80053; 85025

== ENCOUNTER 2022-07-23 14:26 | Emergency (ER) | payer MEDICARE, OTHER, SELFPAY ==
[2022-07-23 14:27] VITALS: BP 110/68; PULSE 89; RESP 22; TEMP 36.8; O2SAT 93; BMI 27.5
--- NOTE | 2022-07-23 14:47 | XRR_ITS ---
PROCEDURE INFORMATION: Exam: XR Chest Exam date and time: 07/23/2022 1:55 PM Age: 77 years old Clinical indication: Other: Weakness TECHNIQUE: Imaging protocol: Radiologic exam of the chest. Views: 1 view. COMPARISON: CR (CHEST, ) 07/01/2022 12:13 AM FINDINGS: Lungs: Unremarkable. No consolidation. Pleural spaces: Unremarkable. No pleural effusion. No pneumothorax. Heart/Mediastinum: Unremarkable. No cardiomegaly. Bones/joints: Sternotomy wires noted. Thoracolumbar spinal fusion hardware noted. Visualized osseous structures are intact. XR/XR chest 1V portable [id number] IMPRESSION: No acute findings.
--- NOTE | 2022-07-23 14:47 | CTR_ITS ---
PROCEDURE INFORMATION: Exam: CT Head Without Contrast Exam date and time: 07/23/2022 2:57 PM Age: 77 years old Clinical indication: Altered mental status/memory loss; Age related cognitive decline; Additional info: Confusion TECHNIQUE: Imaging protocol: Computed tomography of the head without contrast. Radiation optimization: All CT scans at this facility use at least one of these dose optimization techniques: automated exposure control; mA and/or kV adjustment per patient size (includes targeted exams where dose is matched to clinical indication); or iterative reconstruction. REPORTING DATA: Count of CT and Cardiac NM exams in prior 12 months: This patient has received 4 known CTs and 0 known cardiac nuclear medicine studies in the 12 months prior to the current study. COMPARISON: No relevant prior studies available. RADIATION DOSE METRICS: Total DLP (mGy-cm): 1086.24 FINDINGS: Brain: No hemorrhage. No edema. Moderate diffuse cerebral atrophy and mild sequela of chronic small vessel ischemic disease. No mass effect. Cerebral ventricles: No ventriculomegaly. Paranasal sinuses: Trace fluid noted in the sphenoid and right maxillary sinuses. Mastoid air cells: Visualized mastoid air cells are well aerated. Bones/joints: Unremarkable. No acute fracture. Soft tissues: Unremarkable. CT/CT head wo con* [id number] IMPRESSION: 1. No acute intracranial abnormality. 2. Moderate diffuse cerebral atrophy and mild sequela of chronic small vessel ischemic disease.
--- NOTE | 2022-07-23 14:47 | W.ED.WEAKNES ---
HPI - Weakness General: Chief complaint: Weakness Stated complaint: AMS Time Seen by Provider: 07/23/22 14:27 History of Present Illness: 77-year-old male presents emergency department chief complaint of steady decline and generalized malaise and fatigue has been progressive getting worse with weakness for the last 3 weeks patient apparently has a indwelling Payne catheter that was there is concerns about working or not by family the patient appears to be a very poor historian with minimal information provided by him he does not recall any recent falls or trauma patient per family has had just generalized worsening of confusion. Patient presents to the ER for further assessment and management. Per his medication list the patient does have a known history of being on Eliquis as well is on insulin. He is also on alprazolam as well as Soma and diltiazem. We will continue to follow. Associated symptoms: Denies chest pain, chills, fever(s), headache(s), nausea or vomiting Review of Systems General: Reports: 10 or more systems reviewed and unremarkable except in HPI and below Const: Reports: fatigue and malaise; Denies: fever(s) or chills Eyes: Denies: change in vision or blurry vision Card: Denies: chest pain or palpitations Resp: Denies: dyspnea or productive cough GI: Denies: abdominal pain, nausea or vomiting : Denies: flank pain Musc: Denies: extremity pain or extremity swelling Skin/Breast: Denies: rash or pruritus Neuro: Denies: headache(s) Psych: Denies: anxiety or depression Robert/Lymph: Denies: easy bleeding All/Imm: Denies: urticaria, throat swelling or facial swelling PFS ED PFSH: Medical History Acute maxillary sinusitis Acute maxillary sinusitis Anxiety Anxiety and depression Back pain with history of spinal surgery Canker sores oral Chest wall pain Chronic back pain Chronic back pain Coronary artery disease involving coronary bypass graft of [place] heart 2019 Dementia Diabetic peripheral neuropathy associated with type 2 diabetes mellitus Diabetic ulcer of right lower leg Former smoker Fracture, pelvis closed Gastroesophageal reflux disease Hypertension Impacted cerumen of both ears Impacted cerumen of right ear Ingrown toenail of both feet Onychocryptosis Pincer nail deformity Sepsis 2019 Shock Sinusitis Urinary retention UTI (urinary tract infection) Surgical History H/O angioplasty 1992 H/O spinal fusion 1999, 2012 History of prostate surgery 2004 Hx of appendectomy 1987 Knee joint replacement status Bilateral Stented coronary artery 1996 Family History Denies family history of CAD (coronary artery disease) Chronic kidney disease (CKD) Cancer Social History Smoking and tobacco status: former smoker Alcohol intake: never Substance/Drug Use: never Adopted: No Household members: spouse Housing: House Marital status: Number of children: 4 Number of grandchildren: 4 Highest education level completed: Associate Degree: Occupational, Technical, Vocational Program service: Yes status: Retired branch: [employer] Current occupational status: disabled Pets and animals: Yes Current gender identity: Male Physical Exam Narrative: EXAM NARRATIVE: Patient appears nontoxic patient appears nontoxic afebrile GCS is 12 with confusion during speech Const: COMMON NORMALS: no acute distress, patient oriented x3 and healthy appearing HENMT: COMMON NORMALS: normocephalic and atraumatic HEAD & SCALP: normocephalic and atraumatic Eye: COMMON NORMALS: Equal, round and reactive pupils present and EOMs intact bilaterally PUPIL: Yes Equal, round and reactive pupils present Neck/C-Spine: COMMON NORMALS: full ROM, supple and no JVD Lymph: LYMPHATIC: no lymphadenopathy noted Chest: COMMONS NORMALS: normal inspection of the chest and normal palpation of entire chest wall Resp: COMMON NORMALS: normal respiratory effort, No retractions and clear to auscultation bilaterally EFFORT & INSPECTION: Yes able to speak in complete sentences and Yes symmetric chest movement AUSCULTATION: clear to auscultation bilaterally Cardio: COMMON NORMALS: no JVD, regular rate and regular rhythm RATE: regular rate RHYTHM: regular rhythm GI: COMMON NORMALS: Normal to inspection, nondistended, normoactive bowel sounds present, Soft to palpation and non-tender INSPECTION: Yes normal to inspection PALPATION: Yes Soft to palpation : COMMON NORMALS: Yes no CVA tenderness BLADDER/KIDNEY EXAM: Yes no CVA tenderness Back/Pelvis: COMMON NORMALS: no CVA tenderness Extremity: COMMON NORMALS: normal to inspection and full ROM Neuro: COMMON NORMALS: patient oriented x3, CN's II-XII intact bilaterally, moves all extremities and no focal motor deficits Psych: COMMON NORMALS: mental status grossly normal, Normal thought process present, cooperative and normal affect THOUGHT PROCESS: Normal thought process present Skin: COMMON NORMALS: no rashes or lesions noted GENERAL SKIN EXAM: no rashes or lesions noted Course Vital Signs: Vital signs: Vital Signs Temperature 98.2 F 07/23/22 14:27 Pulse Rate 89 07/23/22 14:27 Respiratory Rate 22 H 07/23/22 14:27 Blood Pressure 104/67 07/23/22 18:49 Pulse Oximetry 94 07/23/22 18:49 Oxygen Delivery Me thod Nasal Cannula 07/23/22 17:14 Oxygen Flow Rate 2 07/23/22 17:14 MDM - Weakness Medical Decision Making Due to the patient's symptoms we will continue to follow follow patient's Payne catheter will be assessed by nursing staff urinalysis will be also be obtained. Patient was found to be UTI with sepsis patient's blood pressure did improve with IV fluids with no additional intervention per patient and family's request they are requesting to be transferred to [facility] or [facility] advised patient's family that we do have adequate opportunities at our facility for admission in which we do have open beds which the patient's family adamantly declined. Patient was started on antibiotics for his presumed sepsis due to UTI patient remaining stable condition contacted [facility] with no bed availability contacted direct line at [facility] which patient was excepted to the hospitalist service of Dr. Arauz the patient remained in stable condition in which will be going by ground transportation. Lab Data 07/23/22 14:35 07/23/22 14:35 Radiology Impressions Chest X-Ray 07/23/22 14:47 IMPRESSION: No acute findings. Head CT 07/23/22 14:47 IMPRESSION: 1. No acute intracranial abnormality. 2. Moderate diffuse cerebral atrophy and mild sequela of chronic small vessel ischemic disease. Abdomen/Pelvis CT 07/23/22 17:34 IMPRESSION: 1. No acute findings. 2. Mild splenomegaly. COMMENTS: Consistent with the [employer]'s Incidental Findings Committee white paper (J Am Lily Radiol 2018): Any incidental renal lesion less than 1 cm or classified as too small to characterize, or any incidental cystic renal lesion characterized as simple-appearing, is likely benign. No follow-up imaging is recommended for these lesions per consensus recommendations based on imaging criteria. Laboratory Results WBC 14.6 10^3/uL (4.0-10.0) H 07/23/22 14:35 RBC 5.26 10^6/uL (4.1-5.3) 07/23/22 14:35 Hgb 14.0 g/dL (11.7-16.6) 07/23/22 14:35 Hct 44.8 % (42.0-52.0) 07/23/22 14:35 MCV 85.2 fl (80-94) 07/23/22 14:35 MCH 26.6 pg (28.0-34.0) L 07/23/22 14:35 MCHC 31.3 g/dL (30.0-36.0) 07/23/22 14:35 RDW 14.7 % (12.1-15.1) 07/23/22 14:35 Plt Count 265 10^3/cmm (130-400) 07/23/22 14:35 MPV 12.1 fL (7.4-10.4) H 07/23/22 14:35 Neut % (Auto) 80.8 % 07/23/22 14:35 Lymph % (Auto) 10.9 % 07/23/22 14:35 [place] % (Auto) 5.6 % 07/23/22 14:35 Eos % (Auto) 1.8 % 07/23/22 14:35 Baso % (Auto) 0.5 % 07/23/22 14:35 Neut # (Auto) 11.81 10^3/uL (1.8-7.7) H 07/23/22 14:35 Lymph # (Auto) 1.6 10^3/uL (0.8-4.8) 07/23/22 14:35 [place] # (Auto) 0.8 10^3/uL (0.2-0.9) 07/23/22 14:35 Eos # (Auto) 0.3 10^3/uL (0.0-0.8) 07/23/22 14:35 Baso # (Auto) 0.1 10^3/uL (0.0-0.1) 07/23/22 14:35 Nucleated RBC % (auto) 0 % 07/23/22 14:35 Nucleated RBCs # 0.0 /100WBC 07/23/22 14:35 Sodium 139 mmol/L (136-145) 07/23/22 14:35 Potassium 3.9 mmol/L (3.5-5.1) 07/23/22 14:35 Chloride 100 mmol/L (98-107) 07/23/22 14:35 Carbon Dioxide 23 mmol/L (22-29) 07/23/22 14:35 Anion Gap 19.9 (5-19) H 07/23/22 14:35 BUN 54 mg/dL (8-23) H 07/23/22 14:35 Creatinine 1.8 mg/dL (0.7-1.2) H 07/23/22 14:35 GFR Calculation Not Reportable 07/23/22 14:35 Glucose 251 mg/dL (65-115) H 07/23/22 14:35 Calculated Osmolality 311 mOsm/kg (285-295) H 07/23/22 14:35 Lactic Acid 2.2 mmol/L (0.5-2.2) 07/23/22 14:35 Lactic Acid (Sepsis) 1.0 mmol/L (0.5-2.2) 07/23/22 17:44 Calcium 9.6 mg/dL (8.5-10.5) 07/23/22 14:35 Total Bilirubin 0.5 mg/dL (0.15-1.2) 07/23/22 14:35 AST 25 U/L (0-40) 07/23/22 14:35 ALT 13 U/L (0-41) 07/23/22 14:35 Alkaline Phosphatase 117 U/L (40-130) 07/23/22 14:35 Troponin T Baseline 33 ng/L (0-15) H 07/23/22 14:35 Troponin T 120 Minute 32.31 ng/L (0-15) H 07/23/22 17:44 Delta Troponin T -0.69 ABS# (0-10) L 07/23/22 17:44 NT-Pro-B Natriuret Pep 403 pg/mL (0-450) 07/23/22 14:35 Total Protein 7.1 g/dL (6.6-8.7) 07/23/22 14:35 Albumin 3.4 g/dL (3.5-5.2) L 07/23/22 14:35 Globulin 3.7 g/dL (1.3-4.6) 07/23/22 14:35 Urine Color Yellow (Yellow) 07/23/22 15:20 Urine Appearance Cloudy (CLEAR) A 07/23/22 15:20 Urine pH 6 (5-7) 07/23/22 15:20 Ur Specific [place] 1.015 (1.005-1.030) 07/23/22 15:20 Urine Protein 3+ (Negative) H 07/23/22 15:20 Urine Glucose (UA) 4+ (Normal) H 07/23/22 15:20 Urine Ketones Negative (Negative) 07/23/22 15:20 Urine Blood 2+ (Negative) H 07/23/22 15:20 Urine Nitrate Positive (Negative) H 07/23/22 15:20 Urine Bilirubin Neg (Negative) 07/23/22 15:20 Urine Urobilinogen Norm mg/dL (Negative) 07/23/22 15:20 Ur Leukocyte Esterase 2+ (Negative) H 07/23/22 15:20 Urine RBC 5-10 /hpf (0-2) H 07/23/22 15:20 Urine WBC 40-55 /hpf (0-5) H 07/23/22 15:20 Ur Squamous Epith Cells 0-4 /hpf (0-5) H 07/23/22 15:20 Amorphous Sediment Not Reportable 07/23/22 15:20 Urine Bacteria 2+ /hpf (NONE) H 07/23/22 15:20 Urine Mucus Trace /hpf 07/23/22 15:20 Urine Yeast 3+ /hpf H 07/23/22 15:20 Urine Opiates Screen Positive ng/mL (Negative) H 07/23/22 15:20 Ur Barbiturates Screen Negative ng/mL (Negative) 07/23/22 15:20 Ur Phencyclidine Scrn Negative ng/mL (Negative) 07/23/22 15:20 Ur Amphetamines Screen Negative ng/mL (Negative) 07/23/22 15:20 U Benzodiazepines Scrn Positive ng/mL (Negative) H 07/23/22 15:20 Urine Cocaine Screen Negative ng/mL (Negative) 07/23/22 15:20 U Marijuana (THC) Screen Negative ng/mL (Negative) 07/23/22 15:20 Discharge Plan Discharge Patient Disposition: Xfer Short-Term Hosp Clinical Impression: Sepsis secondary to UTI, Acute renal failure Condition: Stable Referrals: Casie Vitale MD [Primary Care Provider] - Coding Level of Care Code ED Slag Expander for Karli Small
[2022-07-23 15:04] LABS: Basophils # 0.1 10^3/uL (0.0-0.1); Basophils % 0.5 %; Eosinophils # 0.3 10^3/uL (0.0-0.8); Eosinophils % 1.8 %; Hematocrit 44.8 % (42.0-52.0); Lymphocytes # 1.6 10^3/uL (0.8-4.8); Lymphocytes % 10.9 %; Mean Corpuscular HGB Conc 31.3 g/dL (30.0-36.0); Mean Corpuscular Hemoglobin 26.6 pg (28.0-34.0); Mean Corpuscular Volume 85.2 fl (80-94); Mean Platelet Volume 12.1 fL (7.4-10.4); Monocytes # 0.8 10^3/uL (0.2-0.9); Monocytes % 5.6 %; Neutrophils # 11.81 10^3/uL (1.8-7.7); Neutrophils % 80.8 %; Nucleated Red Blood Cells % 0 %; Platelet Count 265 10^3/cmm (130-400); Red Blood Count 5.26 10^6/uL (4.1-5.3); Red Cell Distribution Width 14.7 % (12.1-15.1); White Blood Count 14.6 10^3/uL (4.0-10.0)
--- NOTE | 2022-07-23 15:05 | ECG_ITS ---
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 Measurements Intervals [place] Rate: 86 P: -6 KS: 188 QRS: 22 QRSD: 90 T: 67 QT: 398 QTc: 476 Interpretive Statements SINUS RHYTHM MINIMAL VOLTAGE CRITERIA FOR LVH, CONSIDER NORMAL VARIANT [MEETS CRITERIA IN ONE OF: R(aVL), S(V1), R(V5), R(V5/V6)+S(V1)] POSSIBLE INFERIOR MYOCARDIAL INFARCTION , OF INDETERMINATE AGE [30 ms Q WAVE IN II/aVF] Compared to ECG 07/01/2022 09:55:32 Myocardial infarct finding now present First degree AV block no longer present Electronically Signed On 07-23-2022 23:26:00 CDT by Oskar Vazquez M.D. [id number]
[2022-07-23 15:16] LABS: Lactic Sepsis W/Reflex 2.2 mmol/L (0.5-2.2)
[2022-07-23 15:17] LABS: Troponin(5th) Baseline 33 ng/L (0-15)
[2022-07-23] MEDS: sodium chloride 0.9% 1,000 ML 999 ML IV (15:20)
[2022-07-23 15:23] LABS: Alanine Aminotransferase 13 U/L (0-41); Albumin Level 3.4 g/dL (3.5-5.2); Alkaline Phosphatase 117 U/L (40-130); Aspartate Amino Transferase 25 U/L (0-40); Blood Urea Nitrogen 54 mg/dL (8-23); Calcium 9.6 mg/dL (8.5-10.5); Carbon Dioxide 23 mmol/L (22-29); Chloride 100 mmol/L (98-107); Globulin 3.7 g/dL (1.3-4.6); Glucose 251 mg/dL (65-115); NT Pro B Type Natriuretic Pept 403 pg/mL (0-450); Osmolality Calculated 311 mOsm/kg (285-295); Sodium 139 mmol/L (136-145); Total Bilirubin 0.5 mg/dL (0.15-1.2); Total Protein 7.1 g/dL (6.6-8.7)
[2022-07-23 15:26] LABS: Anion Gap 19.9 (5-19); Potassium 3.9 mmol/L (3.5-5.1)
[2022-07-23 15:38] LABS: Urine Appearance Cloudy (CLEAR); Urine Color Yellow (Yellow); pH Urine 6 (5-7)
[2022-07-23 15:39] LABS: Add Urine Microscopic? YES; Bilirubin Urine Neg (Negative); Blood Urine 2+ (Negative); Glucose Urine UA 4+ (Normal); Ketones Urine Negative (Negative); Leukocyte Esterase Urine 2+ (Negative); Nitrate Urine Positive (Negative); Protein Urine 3+ (Negative); Specific Gravity, Urine 1.015 (1.005-1.030); Urobilinogen Urine Norm (Negative)
[2022-07-23 15:40] LABS: WBC Urine 40-55 /hpf (0-5)
[2022-07-23 15:41] LABS: Bacteria Urine 2+ /hpf; Mucus Urine TRACE /hpf; Squamous Epithelial Cell Urine 0-4 /hpf (0-5)
[2022-07-23 15:42] VITALS: BP 110/68
[2022-07-23 15:42] LABS: Amphetamines Screen Urine Negative (Negative); Barbiturates Screen Urine Negative (Negative); Benzodiazepines Screen Urine Positive (Negative); Cocaine Screen Urine Negative (Negative); Opiate Screen Urine Positive (Negative); PCP Screen Urine Negative (Negative); THC Screen Urine Negative (Negative)
[2022-07-23 15:43] LABS: Add Urine Culture? Yes
[2022-07-23] MEDS: levofloxacin-dextrose 5 % 500 MG/100 ML PREMIX 100 MG IV (16:00)
[2022-07-23 16:24] VITALS: BP 86/59
--- NOTE | 2022-07-23 16:30 | ECG_ITS ---
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 Measurements Intervals [place] Rate: 77 P: 38 NV: 228 QRS: 15 QRSD: 84 T: 65 QT: 421 QTc: 476 Interpretive Statements SINUS RHYTHM WITH FIRST DEGREE AV BLOCK POSSIBLE LEFT ATRIAL ENLARGEMENT [-0.1mV P-WAVE IN V1/V2] POSSIBLE LEFT VENTRICULAR HYPERTROPHY [VOLTAGE CRITERIA PLUS LAE OR QRS WIDENING] NONSPECIFIC T-WAVE ABNORMALITY Compared to ECG 07/23/2022 15:05:20 First degree AV block now present T-wave abnormality now present Myocardial infarct finding no longer present Electronically Signed On 07-24-2022 8:30:25 CDT by Oskar Vazquez M.D. [id number]
[2022-07-23 16:46] LABS: Reflex Lactate Order REFLEX LACTIC ORDERD
[2022-07-23 17:14] VITALS: BP 119/79; O2SAT 95
--- NOTE | 2022-07-23 17:34 | CTR_ITS ---
PROCEDURE INFORMATION: Exam: CT Abdomen And Pelvis Without Contrast Exam date and time: 07/23/2022 5:53 PM Age: 77 years old Clinical indication: Bloating; Patient HX: Non-verbal. No HX; Additional info: Distension TECHNIQUE: Imaging protocol: Computed tomography of the abdomen and pelvis without contrast. Radiation optimization: All CT scans at this facility use at least one of these dose optimization techniques: automated exposure control; mA and/or kV adjustment per patient size (includes targeted exams where dose is matched to clinical indication); or iterative reconstruction. REPORTING DATA: Count of CT and Cardiac NM exams in prior 12 months: This patient has received 4 known CTs and 0 known cardiac nuclear medicine studies in the 12 months prior to the current study. COMPARISON: CT abdomen pelvis wo con [id number] 07/01/2022 5:57 AM RADIATION DOSE METRICS: Total DLP (mGy-cm): 858.34 FINDINGS: Liver: Normal. No mass. Gallbladder and bile ducts: Normal. No calcified stones. No ductal dilation. Pancreas: Normal. No ductal dilation. Spleen: Mild splenomegaly measuring 15 cm in length. Adrenal glands: 2.1 cm left adrenal nodule again noted, similar in size to recent comparison study. Right adrenal gland is unremarkable. Kidneys and ureters: Multiple cysts noted in both kidneys both simple and hyperdense/hemorrhagic. No hydronephrosis. Stomach and bowel: No obstruction. No mucosal thickening. Appendix: No evidence of appendicitis. Intraperitoneal space: No free air. No significant fluid collection. Vasculature: Ectasia of the infrarenal abdominal aorta up to 2.6 cm. Lymph nodes: No enlarged lymph nodes. Urinary bladder: Payne catheter noted within a decompressed bladder. Reproductive: Unremarkable as visualized. Bones/joints: No acute fracture. Redemonstrated fractures of the left superior and inferior pubic rami. Posterior spinal fusion device noted within the thoracolumbar spine. Soft tissues: Unremarkable. CT/CT abdomen pelvis wo con [id number] IMPRESSION: 1. No acute findings. 2. Mild splenomegaly. COMMENTS: Consistent with the [employer]'s Incidental Findings Committee white paper (J Am Lily Radiol 2018): Any incidental renal lesion less than 1 cm or classified as too small to characterize, or any incidental cystic renal lesion characterized as simple-appearing, is likely benign. No follow-up imaging is recommended for these lesions per consensus recommendations based on imaging criteria.
[2022-07-23 18:24] LABS: Troponin 5 2HR 32.31 ng/L (0-15)
[2022-07-23 18:30] LABS: Troponin 5 2HR Delta -0.69 ABS# (0-10)
[2022-07-23 18:49] VITALS: BP 104/67; O2SAT 94
[2022-07-23 21:21] LABS: Troponin 5 6HR 56.29 ng/L (0-15)
[2022-07-23 21:24] LABS: Troponin 5 6HR Delta 23.29 ng/L (0-12)
[2022-08-08 11:12] LABS: Miscellaneous Test SEE COMMENTS
== END 2022-07-23 21:01 | disposition short-term general hospital (02) ==
PROVIDERS: Emergency Provider Emergency Medicine; PCP Family Medicine
DX: A41.9 Sepsis, unspecified organism (principal); N39.0 Urinary tract infection, site not specified; N17.9 Acute kidney failure, unspecified; Z87.891 Personal history of nicotine dependence; I25.10 Atherosclerotic heart disease of native coronary artery without angina pectoris; Z95.1 Presence of aortocoronary bypass graft; E11.9 Type 2 diabetes mellitus without complications; F03.90 Unspecified dementia, unspecified severity, without behavioral disturbance, psychotic disturbance, mood disturbance, and anxiety; I10 Essential (primary) hypertension; Z87.440 Personal history of urinary (tract) infections
CPT/HCPCS: 36415; 70450; 71045; 74176; 80053; 80306; 81001; 83605; 83880; 84484; 85025; 87040; 87086; 87186; 93005; 96365; 96375; 99285; J1956; J2310; J7030

== ENCOUNTER 2022-08-06 11:59 | Outpatient (CLI) | payer MEDICARE, OTHER, SELFPAY ==
--- NOTE | 2022-08-06 12:12 | XR_ITS ---
WS: [id number] XR hip BI m 5V wo/w pel* [id number] REASON FOR EXAM: M25.551 - Pain in right hip FINDINGS: No fracture or focal bone lesion. Mild to moderate narrowing of the joint space with mild subchondral sclerosis and mild osteophytosis of the acetabulum. No soft tissue abnormality. Moderate periarticular sclerosis of the sacroiliac joints and significant pubic symphysis diastases, chronic. 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
== END 2022-08-06 12:00 | disposition home or self-care (01) ==
PROVIDERS: PCP Family Medicine; Visit Provider Family Medicine
DX: M25.551 Pain in right hip (principal); M25.552 Pain in left hip; R10.2 Pelvic and perineal pain; R41.0 Disorientation, unspecified; N39.0 Urinary tract infection, site not specified; Z22.322 Carrier or suspected carrier of Methicillin resistant Staphylococcus aureus
CPT/HCPCS: 73523; 81003; 87077; 87086; 87184